=== PATIENT | female | born 1960 | race Caucasian/White ===

== ENCOUNTER 2023-05-02 15:37 | Inpatient (IN) ==
--- NOTE | 2023-05-02 15:47 | EKG ---
Test Reason : hypoxia Blood Pressure : */* mmHG Vent. Rate : 91 BPM Atrial Rate : 91 BPM P-R Int : 144 ms QRS Dur : 72 ms QT Int : 340 ms P-R-T Axes : 46 42 39 degrees QTc Int : 418 ms Normal sinus rhythm Normal ECG No previous ECGs available Confirmed by Raghavendra Martínez MD ([id number]) on 05/03/2023 7:36:49 AM Referred By: Confirmed By: Raghavendra Martínez MD
[2023-05-02] MEDS ORDERED: TYLENOL 500 MG TAB EXTRA STRENGTH PO ONE (15:59)
[2023-05-02 16:00] LABS: ABG BASE EXCESS 2.2 mmol/L (-2.0-2.0); ABG HCO3 24.7 mmol/L (22-26)
--- NOTE | 2023-05-02 16:00 | DR.SOBA ---
HPI Time Seen Time Seen by Provider: 05/02/23 15:57 Primary Care Physician Primary Care Physician: Tasha Moore Complaints Chief Complaint:: Patient states that since last Tuesday she has been having shortness of breath and a productive cough. She has been treated for a UTI during this time as well. Today she went to Tasha Moore's office and was told that she should present to the ER due to low oxygen saturation. COVID-19 Coronavirus risk:travel/contact w/high risk person: Yes Has patient experienced Coronavirus symptoms: Yes Coronavirus symptoms experienced: Fever, Coughing and Shortness of Breath Source History Provided: Patient Mode of Arrival Mode of Arrival: Wheelchair Timing Onset of Chief Complaint: 04/27/23 PMH PMH Past Medical History: Yes Past Medical History: COPD, Diabetes and Hypothyroidism Past Surgical History: Yes Surgical History: , Ortho Surgery and Other Past Surgical History Comment: Neck Family History History of Family Medical Conditions: Yes Family Medical History: Diabetes Mellitus, Cancer, Heart Failure and Hypertension Social History Does patient currently use any type of tobacco product: No Have you used tobacco products in the last 12 months: No Type of Tobacco Use: None Does any household member use tobacco: No Alcohol Use: None Do you use any recreational Drugs:: No Lives With: Family Lives Where: Home Travel Risk Coronavirus risk:travel/contact w/high risk person: Yes Has patient experienced Coronavirus symptoms: Yes Coronavirus symptoms experienced: Fever, Coughing and Shortness of Breath Infectious screening In the last 2 months have you had wt loss of >10#?: NO Have you had fever, night sweats or hemotysis?: No Have you traveled outside the country in the last 6 months?: No Isolation: Droplet PE Vital Signs Vitals: Vital Signs Temperature 99.6 F Temperature 101.2 F Pulse Rate 67 Pulse Rate 67 Pulse Rate 68 Pulse Rate 66 Pulse Rate 66 Pulse Rate 65 Pulse Rate 66 Pulse Rate 62 Pulse Rate 65 Pulse Rate 66 Pulse Rate 66 Pulse Rate 64 Pulse Rate 64 Pulse Rate 64 Pulse Rate 65 Pulse Rate 66 Pulse Rate 65 Pulse Rate 67 Pulse Rate 66 Pulse Rate 67 Pulse Rate 69 Pulse Rate 71 Pulse Rate 72 Pulse Rate 72 Pulse Rate 73 Pulse Rate 73 Pulse Rate 75 Pulse Rate 80 Pulse Rate 82 Pulse Rate 85 Pulse Rate 91 Respiratory Rate 22 Respiratory Rate 18 Respiratory Rate 18 Blood Pressure 101/51 Blood Pressure 105/53 Blood Pressure 100/52 Blood Pressure 101/52 Blood Pressure 100/54 Blood Pressure 88/51 Blood Pressure 88/51 Blood Pressure 84/41 Blood Pressure 84/41 Blood Pressure 84/41 Blood Pressure 95/50 Blood Pressure 95/50 Blood Pressure 90/47 Blood Pressure 87/43 Blood Pressure 83/43 Blood Pressure 91/50 Blood Pressure 91/46 Blood Pressure 91/46 Blood Pressure 91/46 Blood Pressure 93/52 Blood Pressure 87/43 Blood Pressure 93/49 Blood Pressure 89/42 Blood Pressure 97/51 Blood Pressure 97/51 Blood Pressure 91/50 Blood Pressure 97/50 Blood Pressure 97/50 Blood Pressure 97/50 Blood Pressure 92/53 O2 Sat by Pulse Oximetry 98 O2 Sat by Pulse Oximetry 97 O2 Sat by Pulse Oximetry 96 O2 Sat by Pulse Oximetry 96 O2 Sat by Pulse Oximetry 98 O2 Sat by Pulse Oximetry 96 O2 Sat by Pulse Oximetry 96 O2 Sat by Pulse Oximetry 98 O2 Sat by Pulse Oximetry 95 O2 Sat by Pulse Oximetry 96 O2 Sat by Pulse Oximetry 95 O2 Sat by Pulse Oximetry 95 O2 Sat by Pulse Oximetry 96 O2 Sat by Pulse Oximetry 93 O2 Sat by Pulse Oximetry 94 O2 Sat by Pulse Oximetry 93 O2 Sat by Pulse Oximetry 95 O2 Sat by Pulse Oximetry 95 O2 Sat by Pulse Oximetry 93 O2 Sat by Pulse Oximetry 93 O2 Sat by Pulse Oximetry 93 O2 Sat by Pulse Oximetry 92 O2 Sat by Pulse Oximetry 88 O2 Sat by Pulse Oximetry 93 O2 Sat by Pulse Oximetry 93 O2 Sat by Pulse Oximetry 93 O2 Sat by Pulse Oximetry 91 O2 Sat by Pulse Oximetry 92 O2 Sat by Pulse Oximetry 93 O2 Sat by Pulse Oximetry 95 O2 Sat by Pulse Oximetry 83 ROR Labs Reviewed 05/02/23 16:05 05/02/23 16:14 Laboratory: WBC 12.5 X10^3/uL (3.6-10.0) H 05/02/23 16:05 RBC 3.20 X10^6/uL (3.5-5.4) L 05/02/23 16:05 Hgb 9.7 g/dL (12.0-16.0) L 05/02/23 16:05 Hct 29.8 % (36.0-47.0) L 05/02/23 16:05 MCV 93.2 fL (80.0-100.0) 05/02/23 16:05 MCH 30.4 pg (27.0-34.0) 05/02/23 16:05 MCHC 32.6 g/dL (33.0-35.0) L 05/02/23 16:05 RDW 18.6 % (11.6-16.5) H 05/02/23 16:05 Plt Count 305 X10^3/uL (150.0-450.0) 05/02/23 16:05 Plt Count Comment Adequate (ADEQUATE) 05/02/23 16:05 MPV 7.8 fL (7.4-11.0) 05/02/23 16:05 Neut % (Auto) 93.5 % (42.0-75.0) H 05/02/23 16:05 Lymph % (Auto) 5.3 % (21.0-51.0) L 05/02/23 16:05 [place] % (Auto) 1.2 % (0.0-13.0) 05/02/23 16:05 Eos % (Auto) 0.0 % (0.9-2.9) L 05/02/23 16:05 Baso % (Auto) 0 % (0.2-1.0) L 05/02/23 16:05 Neut # (Auto) 11.7 x10^3/uL (2.2-4.8) H 05/02/23 16:05 Lymph # (Auto) 0.7 X10^3/uL (1.3-2.9) L 05/02/23 16:05 [place] # (Auto) 0.1 x10^3/uL (0.3-0.8) L 05/02/23 16:05 Eos # (Auto) 0.0 x10^3/uL (0.0-0.2) 05/02/23 16:05 Baso # (Auto) 0.0 X10^3/uL (0.0-0.1) 05/02/23 16:05 Absolute Nucleated RBC 0.0 /100WBC 05/02/23 16:05 Total Counted 100 05/02/23 16:05 Neutrophils % (Manual) 91 % (39-76) H 05/02/23 16:05 Lymphocytes % (Manual) 8 % (13-43) L 05/02/23 16:05 Monocytes % (Manual) 1 % (4-9) L 05/02/23 16:05 Plt Morphology Comment Normal (NORMAL) 05/02/23 16:05 RBC Morphology Abnormal (NORMAL) A 05/02/23 16:05 Anisocytosis Slight A 05/02/23 16:05 D-Dimer 1.79 ug/ml (0.0-0.57) H 05/02/23 16:05 Sample Site Rra 05/02/23 15:55 ABG pH 7.510 (7.35-7.45) H 05/02/23 15:55 ABG pCO2 31.0 mmHg (35.0-45.0) L 05/02/23 15:55 ABG pO2 54.0 mmHg (80.0-100.0) L 05/02/23 15:55 ABG HCO3 24.7 mmol/L (22-26) 05/02/23 15:55 ABG O2 Saturation 91.0 % (90-100) 05/02/23 15:55 ABG Base Excess 2.2 mmol/L (-2.0-2.0) H 05/02/23 15:55 Jaime Test Pos 05/02/23 15:55 A-a Gradient 57.0 mmHg 05/02/23 15:55 FiO2 21.0 05/02/23 15:55 Blood Gas Comments Pt margot well eb 05/02/23 15:55 Sodium 131 mmol/L (136-145) L 05/02/23 16:14 Corrected Sodium 133 mmol/L (136-145) L 05/02/23 16:14 Potassium 4.6 mmol/L (3.5-5.1) 05/02/23 16:14 Chloride 98 mmol/L (98-107) 05/02/23 16:14 Carbon Dioxide 25.2 mmol/L (21-32) 05/02/23 16:14 BUN 17 mg/dL (7-18) 05/02/23 16:14 Creatinine 1.14 mg/dL (0.55-1.02) H 05/02/23 16:14 Est GFR (MDRD) Af Amer > 60 (>60) 05/02/23 16:14 Est GFR (MDRD) Non-Af 51 (>60) L 05/02/23 16:14 Glucose 174 mg/dL (65-99) H 05/02/23 16:14 Lactic Acid 0.5 mmol/L (0.4-2.0) 05/02/23 16:05 Calcium 8.8 mg/dL (8.5-10.1) 05/02/23 16:14 Corrected Calcium 9.8 mg/dL (8.5-10.1) 05/02/23 16:14 Total Bilirubin 0.90 mg/dL (0.2-1.0) 05/02/23 16:14 AST 28 Units/L (15-37) 05/02/23 16:14 ALT 37 Units/L (12-78) 05/02/23 16:14 Alkaline Phosphatase 87 Units/L (46-116) 05/02/23 16:14 B-Natriuretic Peptide 238 pg/mL (0-79) H 05/02/23 16:05 Total Protein 6.9 g/dL (6.4-8.2) 05/02/23 16:14 Albumin 2.7 g/dL (3.4-5.0) L 05/02/23 16:14 Globulin 4.2 g/dL (2.5-4.5) 05/02/23 16:14 Albumin/Globulin Ratio 0.6 Ratio (1.1-2.1) L 05/02/23 16:14 Specimen Type Clean catch urine 05/02/23 17:51 Urine Color [place] (YELLOW) 05/02/23 17:51 Urine Appearance Cloudy (CLEAR) 05/02/23 17:51 Urine pH Cancelled 05/02/23 17:51 Ur Specific [place] Cancelled 05/02/23 17:51 Urine Protein Cancelled 05/02/23 17:51 Urine Glucose (UA) Cancelled 05/02/23 17:51 Urine Ketones Cancelled 05/02/23 17:51 Urine Blood Cancelled 05/02/23 17:51 Urine Nitrite Cancelled 05/02/23 17:51 Urine Bilirubin Cancelled 05/02/23 17:51 Urine Urobilinogen Cancelled 05/02/23 17:51 Ur Leukocyte Esterase Cancelled 05/02/23 17:51 Urine RBC None seen /HPF (0-3) 05/02/23 17:51 Urine WBC Tntc /HPF (0-5) A 05/02/23 17:51 Ur Squamous Epith Cells Few /HPF (NEGATIVE) 05/02/23 17:51 Urine Bacteria 4+ /HPF (NEGATIVE) 05/02/23 17:51 Granular Casts Rare /LPF (NEGATIVE) 05/02/23 17:51 Ur Culture Indicated? Yes/culture set up 05/02/23 17:51 SARS-CoV-2 (PCR) Negative (NEGATIVE) 05/02/23 15:48 Influenza Type A (PCR) Negative (NEGATIVE) 05/02/23 15:48 Influenza Type B (PCR) Negative (NEGATIVE) 05/02/23 15:48 RSV (PCR) Negative (NEGATIVE) 05/02/23 15:48 Opioid Opioid Risk Tool Age (Darnell box if 16-45): No History of Preadolescent Sexual Abuse: No Total: 0 Total Score Risk Category: Low Risk Copyright: Gordon SORIANO predicting aberrant behaviors Discharge Plan Discharge Plan Patient Disposition: 01 HOME, SELF-CARE Condition: Stable Orders to Discharge Patient Discharge Orders: Transfer (Routine); Ordered 05/02/23 Ordered By: JOCELYNN IRELAND
[2023-05-02 16:01] LABS: ABG ALLEN TEST POS
[2023-05-02] MEDS: TYLENOL 500 MG TAB EXTRA STRENGTH PO ONE (16:10)
[2023-05-02] MEDS ORDERED: NS 1,000 ML IV 1,000 ML ONE ×3 (16:15→20:01)
[2023-05-02] MEDS: NS 1,000 ML IV 1,000 ML IV ONE ×2 (16:18→17:39)
[2023-05-02 16:31] LABS: BASOPHILS % (AUTO) 0 % (0.2-1.0); HEMATOCRIT 29.8 % (36.0-47.0); HEMOGLOBIN 9.7 g/dL (12.0-16.0); LYMPHOCYTES # (AUTO) 0.7 X10^3/uL (1.3-2.9); LYMPHOCYTES % (AUTO) 5.3 % (21.0-51.0); MEAN CORPUSCULAR HEMOGLOBIN 30.4 pg (27.0-34.0); MEAN CORPUSCULAR HGB CONC 32.6 g/dL (33.0-35.0); MEAN CORPUSCULAR VOLUME 93.2 fL (80.0-100.0); MEAN PLATELET VOLUME 7.8 fL (7.4-11.0); MONOCYTES # (AUTO) 0.1 x10^3/uL (0.3-0.8); MONOCYTES % (AUTO) 1.2 % (0.0-13.0); NEUTROPHILS # (AUTO) 11.7 x10^3/uL (2.2-4.8); NEUTROPHILS % (AUTO) 93.5 % (42.0-75.0); PLATELET COUNT 305 X10^3/uL (150.0-450.0); RED CELL DISTRIBUTION WIDTH 18.6 % (11.6-16.5); WHITE BLOOD COUNT 12.5 X10^3/uL (3.6-10.0)
[2023-05-02 16:46] LABS: ALANINE AMINOTRANSFERASE 37 Units/L (12-78); ALBUMIN 2.7 g/dL (3.4-5.0); ALKALINE PHOSPHATASE 87 Units/L (46-116); ASPARTATE AMINO TRANSFERASE 28 Units/L (15-37); BLOOD UREA NITROGEN 17 mg/dL (7-18); CALCIUM 8.8 mg/dL (8.5-10.1); CARBON DIOXIDE 25.2 mmol/L (21-32); CHLORIDE 98 mmol/L (98-107); COR CA(FOR HYPOALB) 9.8 mg/dL (8.5-10.1); COR NA(FOR HYPERGLY) 133 mmol/L (136-145); CREATININE 1.14 mg/dL (0.55-1.02); GLUCOSE 174 mg/dL (65-99); POTASSIUM 4.6 mmol/L (3.5-5.1); SODIUM 131 mmol/L (136-145); TOTAL PROTEIN 6.9 g/dL (6.4-8.2); eGFR NON BLACK RACES 51 (>60)
--- NOTE | 2023-05-02 17:00 | RAD ---
EXAM:CHEST, 1 VIEWHISTORY:SOB; UnavailableCOMPARISON:November 2021FINDINGS:The trachea is midline. The cardiac silhouette is mildly enlarged.. The lungs demonstrate chronic appearing interstitial changes without focal infiltrate or effusion. The bony thorax is unremarkable.IMPRESSION:No acute cardiopulmonary disease.THIS IS AN ELECTRONICALLY VERIFIED FINAL REPORT05/02/2023 4:57 PM - Electronically signed by Sinan Basurto MD
[2023-05-02 17:07] LABS: ANISOCYTOSIS SLIGHT; PLATELET MORPHOLOGY COMMENT NORMAL (NORMAL)
[2023-05-02] MEDS: OMNIPAQUE 350 mg/mL 100 mL BTL 100 ML ONE (17:40)
[2023-05-02 18:21] LABS: APPEARANCE,URINE CLOUDY (CLEAR); BACTERIA,URINE 4+ /HPF (NEGATIVE); COLOR,URINE ORANGE (YELLOW); GRANULAR CASTS,URINE RARE /LPF (NEGATIVE); RBC,URINE NONE SEEN /HPF (0-3); SQUAMOUS EPITHELIAL CELL,UR FEW /HPF (NEGATIVE)
--- NOTE | 2023-05-02 18:28 | CT ---
PROCEDURE: CTA Chest. HISTORY: Dyspnea. TECHNIQUE: Axial images were performed through the chest with the administration of IV contrast with multiplanar reformations . 3D and MIPS reconstructions were performed and reviewed. Dose reduction te chniques including Automated Exposure Control (AEC) and adjustment of mA and kV were utilized . COMPARISON: None. TECHNICAL QUALITY: Satisfactory. FINDINGS: Mild athero sclerotic calcifications thoracic aorta with no aneurysm or dissection. No evidence of pulmonary embolus. Mediastinum and hilar regions show prominent right hilar and paratracheal lymph nodes with largest in the paratracheal region at 2.1 cm. Normal-sized heart with no pericardial fluid. No pulmonary consolidation, masses, or pleural fluid. Mild linear scar versus discoid atelectasis manny ng bases. Visualized upper abdomen shows previous cholecystectomy. No acute bony abnormality. IMPRESSION: 1. No pulmonary embolus or aortic dissection. 2. Mild paratracheal and right hilar lymphadenopathy and follow-up study in 3-4 months recommended to evaluate stability. 3. No pulmonary consolidation. THIS IS AN ELECTRONICALLY VERIFIED FINAL REPORT 05/02/2023 6:25 PM - Electronically signed by Jc Mondragon MD
[2023-05-02] MEDS ORDERED: NS 100 ML IV 100 ML ONE (19:14)
[2023-05-02] MEDS ORDERED: ROCEPHIN VIAL 1 GRAM ONE (19:14)
[2023-05-02] MEDS: ROCEPHIN VIAL 1 GRAM 1 G in NS 100 ML IV 100 ML IV ONE (19:20)
[2023-05-02] MEDS: NS 1,000 ML IV 1,000 ML IV SCH (20:16)
[2023-05-02] MEDS ORDERED: PULMICORT NEB TX 0.5 MG NEB ONE (21:38)
[2023-05-02] MEDS: DUONEB 0.5 MG/3 MG (3 mL) NEB SCH (21:53)
[2023-05-02] MEDS: PULMICORT NEB TX 0.5 MG NEB SCH (21:53)
[2023-05-02 22:57] VITALS: BMI 29.8
[2023-05-02] MEDS: ROCEPHIN VIAL 1 GRAM 1 G in NS 100 ML IV 100 ML IV SCH (23:11)
[2023-05-02] MEDS: ZOFRAN INJ 4 MG VIAL IVP PRN (23:17)
[2023-05-02] MEDS ORDERED: DUONEB 0.5 MG/3 MG (3 mL) NEB ONE (23:49)
[2023-05-03] MEDS: SOLU-Medrol 40 MG VIAL IVP SCH ×2 (01:17→21:37)
[2023-05-03] MEDS: SOLU-Medrol 125 MG VIAL ONE (01:26)
[2023-05-03 04:27] LABS: HEMOGLOBIN 8.2 g/dL (12.0-16.0); LYMPHOCYTES # (AUTO) 0.2 X10^3/uL (1.3-2.9); MONOCYTES # (AUTO) 0.1 x10^3/uL (0.3-0.8); RED CELL DISTRIBUTION WIDTH 19.2 % (11.6-16.5); WHITE BLOOD COUNT 8.2 X10^3/uL (3.6-10.0)
[2023-05-03 04:33] LABS: BASOPHILS % (AUTO) 0.1 % (0.2-1.0); HEMATOCRIT 25.3 % (36.0-47.0); LYMPHOCYTES % (AUTO) 2.6 % (21.0-51.0); MEAN CORPUSCULAR HEMOGLOBIN 30.2 pg (27.0-34.0); MEAN CORPUSCULAR HGB CONC 32.3 g/dL (33.0-35.0); MEAN CORPUSCULAR VOLUME 93.7 fL (80.0-100.0); MONOCYTES % (AUTO) 0.8 % (0.0-13.0); NEUTROPHILS # (AUTO) 7.9 x10^3/uL (2.2-4.8); NEUTROPHILS % (AUTO) 96.5 % (42.0-75.0); PLATELET COUNT 271 X10^3/uL (150.0-450.0)
[2023-05-03 04:40] LABS: ALANINE AMINOTRANSFERASE 35 Units/L (12-78); ALBUMIN 2.3 g/dL (3.4-5.0); ALKALINE PHOSPHATASE 78 Units/L (46-116); ASPARTATE AMINO TRANSFERASE 35 Units/L (15-37); BLOOD UREA NITROGEN 13 mg/dL (7-18); CALCIUM 7.9 mg/dL (8.5-10.1); CHLORIDE 102 mmol/L (98-107); COR CA(FOR HYPOALB) 9.3 mg/dL (8.5-10.1); COR NA(FOR HYPERGLY) 139 mmol/L (136-145); CREATINE KINASE 775 Units/L (26-192); GLUCOSE 255 mg/dL (65-99); MAGNESIUM 1.6 mg/dL (2.0-2.9); SODIUM 135 mmol/L (136-145); TOTAL PROTEIN 6.3 g/dL (6.4-8.2); eGFR NON BLACK RACES > 60 (>60)
[2023-05-03 04:45] LABS: ANISOCYTOSIS SLIGHT; PLATELET MORPHOLOGY COMMENT NORMAL (NORMAL)
[2023-05-03] MEDS ORDERED: CONSULT PHARMACY - POTASSIUM & MAGNESIUM XX SCH (06:00)
[2023-05-03] MEDS: MAG-OX TAB PO SCH (09:00)
[2023-05-03] MEDS ORDERED: SOLU-Medrol 40 MG VIAL IVP SCH (09:00)
[2023-05-03] MEDS: VSL#3 PROBIOTIC CAP 112.5 B PO SCH (10:00)
[2023-05-03] MEDS: CYMBALTA PO SCH (12:00)
[2023-05-03] MEDS: NovoLIN R (or HumuLIN R) SC PRN (14:30)
[2023-05-03] MEDS: SYNTHROID 125 mcg TAB PO SCH (15:15)
[2023-05-04] MEDS: NORCO 7.5/325 MG TAB PO PRN (01:22)
[2023-05-04 05:00] LABS: BASOPHILS % (AUTO) 0.1 % (0.2-1.0); HEMATOCRIT 24.8 % (36.0-47.0); LYMPHOCYTES # (AUTO) 0.2 X10^3/uL (1.3-2.9); LYMPHOCYTES % (AUTO) 2.9 % (21.0-51.0); MEAN CORPUSCULAR HEMOGLOBIN 30.6 pg (27.0-34.0); MEAN CORPUSCULAR HGB CONC 32.5 g/dL (33.0-35.0); MEAN CORPUSCULAR VOLUME 94.3 fL (80.0-100.0); MEAN PLATELET VOLUME 8.4 fL (7.4-11.0); MONOCYTES # (AUTO) 0.1 x10^3/uL (0.3-0.8); MONOCYTES % (AUTO) 1.5 % (0.0-13.0); NEUTROPHILS # (AUTO) 7.1 x10^3/uL (2.2-4.8); NEUTROPHILS % (AUTO) 95.5 % (42.0-75.0); PLATELET COUNT 262 X10^3/uL (150.0-450.0); RED BLOOD COUNT 2.63 X10^6/uL (3.5-5.4); RED CELL DISTRIBUTION WIDTH 18.9 % (11.6-16.5); WHITE BLOOD COUNT 7.5 X10^3/uL (3.6-10.0)
[2023-05-04 05:14] LABS: ALANINE AMINOTRANSFERASE 35 Units/L (12-78); ALBUMIN 2.3 g/dL (3.4-5.0); ALKALINE PHOSPHATASE 85 Units/L (46-116); ASPARTATE AMINO TRANSFERASE 30 Units/L (15-37); BLOOD UREA NITROGEN 18 mg/dL (7-18); CALCIUM 8.1 mg/dL (8.5-10.1); CHLORIDE 107 mmol/L (98-107); COR CA(FOR HYPOALB) 9.5 mg/dL (8.5-10.1); COR NA(FOR HYPERGLY) 147 mmol/L (136-145); CREATININE 0.87 mg/dL (0.55-1.02); GLUCOSE 464 mg/dL (65-99); MAGNESIUM 1.9 mg/dL (2.0-2.9); POTASSIUM 3.8 mmol/L (3.5-5.1); SODIUM 138 mmol/L (136-145); TOTAL PROTEIN 6.4 g/dL (6.4-8.2); eGFR NON BLACK RACES > 60 (>60)
--- NOTE | 2023-05-04 05:38 | RAD ---
EXAM:CHEST, 1 VIEWHISTORY:SOB, COPD EXACERBATION; COPD, DM SX: CSECTION, ORTHO, NECKCOMPARISON:05/02/2023FINDINGS:The cardiomediastinal silhouette is stable.Increasing interstitial markings in bilateral opacities. No pneumothorax or effusion.No acute osseous abnormality.IMPRESSION:Increasing opacities in the lungs which may be due to edema or pneumonia. Continued follow-up recommended.THIS IS AN ELECTRONICALLY VERIFIED FINAL REPORT05/04/2023 5:35 AM - Electronically signed by Josesito Lucero MD
[2023-05-04 05:42] LABS: ANISOCYTOSIS SLIGHT; PLATELET MORPHOLOGY COMMENT NORMAL (NORMAL)
[2023-05-04] MEDS ORDERED: CONSULT PHARMACY - POTASSIUM & MAGNESIUM XX SCH (06:00)
[2023-05-04] MEDS ORDERED: GLUCOPHAGE ONE ×2 (08:10→20:12)
[2023-05-04] MEDS: K-DUR TAB 20 MEQ PO SCH (08:41)
[2023-05-04] MEDS: MAG-OX TAB PO SCH (08:41)
[2023-05-04] MEDS: GLUCOPHAGE PO SCH (08:41)
[2023-05-04] MEDS ORDERED: GLUCOPHAGE PO SCH (09:00)
[2023-05-04] MEDS: LASIX IVP SCH (09:50)
[2023-05-04] MEDS: REQUIP PO SCH (09:51)
[2023-05-04 10:31] LABS: ABG BASE EXCESS -3.1 mmol/L (-2.0-2.0); ABG HCO3 21.1 mmol/L (22-26)
[2023-05-04 10:32] LABS: ABG ALLEN TEST POS
--- NOTE | 2023-05-04 10:47 | RAD ---
EXAM:CHEST, PA/LAT ADULTHISTORY:PNEUMONIA;COMPARISON:Prior study or studies were utilized for comparison during interpretation with the most relevant dated earlier todayTECHNIQUE:CHEST, PA/LAT ADULTFINDINGS:Chest:Lines and tubes: Cardiac leads overlie the chest.Mediastinum: Cardiac and mediastinal shadow is within normal limits for size and contour.Pulmonary vessels: No pulmonary vascular congestion.Lung gamez: Similar diffuse airspace opacities compared to earlier todayPleura: No effusion. No pneumothorax.Bones and soft tissues: No acute osseous or soft tissue abnormality.IMPRESSION:1. Pneumonia versus heart failure without significant change from earlier todayTHIS IS AN ELECTRONICALLY VERIFIED FINAL REPORT05/04/2023 10:44 AM - Electronically signed by Dk Pepper MD
[2023-05-04] MEDS: DIFLUCAN PO SCH (14:07)
--- NOTE | 2023-05-04 15:49 | DR.H&P ---
H&P History & Physical for Day of: H&P Date: 05/02/23 Chief Complaint Chief Complaint: SOB Allergies Allergies Allergy/AdvReac Type Severity Reaction Status Date / Time tetracycline Allergy Unknown Verified 04/06/21 15:35 History of Present Illness History of Present Illness: Pt is 63 WF, Er admission after presenting stating that since last Tuesday she has been having shortness of breath and a productive cough. She has been treated for a UTI during this time as well. Pt states she had rocephin IM and has been on po cipro 500mg bid. Today she went to Tasha Moore's office and was told that she should present to the ER due to low oxygen saturation. 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 and Tonsillectomy Family History Family Medical History: Diabetes Mellitus, Cancer, Heart Failure and Hyperten cecilia Social History Does patient currently use any type of tobacco product: No Have you used tobacco products in the last 12 months: No Type of Tobacco Use: None Does any household member use tobacco: No Alcohol Use: None Drug Use: None Medications Home Medications: Home Medications Medication Instructions Recorded Confirmed Type ciprofloxacin HCl 500 mg tablet 500 mg PO BID 05/02/23 05/02/23 History duloxetine 30 mg capsule,delayed 30 mg PO QDAY 05/02/23 05/02/23 History release glimepiride 4 mg tablet 4 mg PO BID 05/02/23 05/02/23 History hydrocodone 7.5 mg-acetaminophen 1 tab PO TID PRN 05/02/23 05/02/23 History 325 mg tablet levothyroxine 125 mcg tablet 125 mcg PO QDAY disorder of 05/02/23 05/02/23 History thyroid gland metformin 500 mg tablet 500 mg PO DAILY 05/02/23 05/02/23 History phenazopyridine 100 mg tablet 100 mg PO TID PRN 05/02/23 05/02/23 History Labs 05/04/23 04:10 05/04/23 04:10 Labs: 05/02/23 17:51 Urine,Clean Catch Urine Culture - Preliminary 05/02/23 16:14 Blood Blood Culture Gram Stain - Final Laboratory WBC 8.2 X10^3/uL (3.6-10.0) 05/03/23 03:50 RBC 2.70 X10^6/uL (3.5-5.4) L 05/03/23 03:50 Hgb 8.2 g/dL (12.0-16.0) L 05/03/23 03:50 Hct 25.3 % (36.0-47.0) L 05/03/23 03:50 MCV 93.7 fL (80.0-100.0) 05/03/23 03:50 MCH 30.2 pg (27.0-34.0) 05/03/23 03:50 MCHC 32.3 g/dL (33.0-35.0) L 05/03/23 03:50 RDW 19.2 % (11.6-16.5) H 05/03/23 03:50 Plt Count 271 X10^3/uL (150.0-450.0) 05/03/23 03:50 Plt Count Comment Adequate (ADEQUATE) 05/03/23 03:50 MPV 8.0 fL (7.4-11.0) 05/03/23 03:50 Neut % (Auto) 96.5 % (42.0-75.0) H 05/03/23 03:50 Lymph % (Auto) 2.6 % (21.0-51.0) L 05/03/23 03:50 [place] % (Auto) 0.8 % (0.0-13.0) 05/03/23 03:50 Eos % (Auto) 0.0 % (0.9-2.9) L 05/03/23 03:50 Baso % (Auto) 0.1 % (0.2-1.0) L 05/03/23 03:50 Neut # (Auto) 7.9 x10^3/uL (2.2-4.8) H 05/03/23 03:50 Lymph # (Auto) 0.2 X10^3/uL (1.3-2.9) L 05/03/23 03:50 [place] # (Auto) 0.1 x10^3/uL (0.3-0.8) L 05/03/23 03:50 Eos # (Auto) 0.0 x10^3/uL (0.0-0.2) 05/03/23 03:50 Baso # (Auto) 0.0 X10^3/uL (0.0-0.1) 05/03/23 03:50 Absolute Nucleated RBC 0.0 /100WBC 05/03/23 03:50 Total Counted 100 05/03/23 03:50 Neutrophils % (Manual) 97 % (39-76) H 05/03/23 03:50 Lymphocytes % (Manual) 3 % (13-43) L 05/03/23 03:50 Monocytes % (Manual) 1 % (4-9) L 05/02/23 16:05 Plt Morphology Comment Normal (NORMAL) 05/03/23 03:50 RBC Morphology Abnormal (NORMAL) A 05/03/23 03:50 Anisocytosis Slight A 05/03/23 03:50 PT 14.0 SECONDS (11.8-14.3) 05/03/23 03:50 INR Target Range - 05/03/23 03:50 INR 1.10 (0.8-1.3) 05/03/23 03:50 APTT 36.2 SECONDS (22.9-36.5) 05/03/23 03:50 PTT Comment - 05/03/23 03:50 D-Dimer 1.79 ug/ml (0.0-0.57) H 05/02/23 16:05 Sample Site Rra 05/02/23 15:55 ABG pH 7.510 (7.35-7.45) H 05/02/23 15:55 ABG pCO2 31.0 mmHg (35.0-45.0) L 05/02/23 15:55 ABG pO2 54.0 mmHg (80.0-100.0) L 05/02/23 15:55 ABG HCO3 24.7 mmol/L (22-26) 05/02/23 15:55 ABG O2 Saturation 91.0 % (90-100) 05/02/23 15:55 ABG Base Excess 2.2 mmol/L (-2.0-2.0) H 05/02/23 15:55 Jaime Test Pos 05/02/23 15:55 A-a Gradient 57.0 mmHg 05/02/23 15:55 FiO2 21.0 05/02/23 15:55 Blood Gas Comments Pt margot well eb 05/02/23 15:55 Sodium 135 mmol/L (136-145) L 05/03/23 03:50 Corrected Sodium 139 mmol/L (136-145) 05/03/23 03:50 Potassium 4.0 mmol/L (3.5-5.1) 05/03/23 03:50 Chloride 102 mmol/L (98-107) 05/03/23 03:50 Carbon Dioxide 22.0 mmol/L (21-32) 05/03/23 03:50 BUN 13 mg/dL (7-18) 05/03/23 03:50 Creatinine 0.90 mg/dL (0.55-1.02) 05/03/23 03:50 Est GFR (MDRD) Af Amer > 60 (>60) 05/03/23 03:50 Est GFR (MDRD) Non-Af > 60 (>60) 05/03/23 03:50 Glucose 255 mg/dL (65-99) H 05/03/23 03:50 POC Glucose (mg/dL) 386 mg/dL (65-99) H 05/03/23 17:12 Lactic Acid 0.5 mmol/L (0.4-2.0) 05/02/23 16:05 Calcium 7.9 mg/dL (8.5-10.1) L 05/03/23 03:50 Corrected Calcium 9.3 mg/dL (8.5-10.1) 05/03/23 03:50 Magnesium 1.6 mg/dL (2.0-2.9) L 05/03/23 03:50 Total Bilirubin 0.50 mg/dL (0.2-1.0) 05/03/23 03:50 AST 35 Units/L (15-37) 05/03/23 03:50 ALT 35 Units/L (12-78) 05/03/23 03:50 Alkaline Phosphatase 78 Units/L (46-116) 05/03/23 03:50 Creatine Kinase 789 Units/L (26-192) H 05/03/23 09:36 B-Natriuretic Peptide 238 pg/mL (0-79) H 05/02/23 16:05 Total Protein 6.3 g/dL (6.4-8.2) L 05/03/23 03:50 Albumin 2.3 g/dL (3.4-5.0) L 05/03/23 03:50 Globulin 4.0 g/dL (2.5-4.5) 05/03/23 03:50 Albumin/Globulin Ratio 0.6 Ratio (1.1-2.1) L 05/03/23 03:50 Specimen Type Clean catch urine 05/02/23 17:51 Urine Color [place] (YELLOW) 05/02/23 17:51 Urine Appearance Cloudy (CLEAR) 05/02/23 17:51 Urine pH Cancelled 05/02/23 17:51 Ur Specific [place] Cancelled 05/02/23 17:51 Urine Protein Cancelled 05/02/23 17:51 Urine Glucose (UA) Cancelled 05/02/23 17:51 Urine Ketones Cancelled 05/02/23 17:51 Urine Blood Cancelled 05/02/23 17:51 Urine Nitrite Cancelled 05/02/23 17:51 Urine Bilirubin Cancelled 05/02/23 17:51 Urine Urobilinogen Cancelled 05/02/23 17:51 Ur Leukocyte Esterase Cancelled 05/02/23 17:51 Urine RBC None seen /HPF (0-3) 05/02/23 17:51 Urine WBC Tntc /HPF (0-5) A 05/02/23 17:51 Ur Squamous Epith Cells Few /HPF (NEGATIVE) 05/02/23 17:51 Urine Bacteria 4+ /HPF (NEGATIVE) 05/02/23 17:51 Granular Casts Rare /LPF (NEGATIVE) 05/02/23 17:51 Ur Culture Indicated? Yes/culture set up 05/02/23 17:51 SARS-CoV-2 (PCR) Negative (NEGATIVE) 05/02/23 15:48 Influenza Type A (PCR) Negative (NEGATIVE) 05/02/23 15:48 Influenza Type B (PCR) Negative (NEGATIVE) 05/02/23 15:48 RSV (PCR) Negative (NEGATIVE) 05/02/23 15:48 Review of Systems Constitutional: Fever, Chills and Malaise Eyes: No Symptoms Reported ENT: Nose Congestion Respiratory: Shortness of Breath Cardiovascular: No Symptoms Reported Gastrointestinal: Nausea Genitourinary: Dysuria Musculoskeletal: Back Pain Skin: No Symptoms Reported Neurological: No Symptoms Reported Physical Exam Vital Signs: Vital Signs Temperature 97.7 F Temperature 98.2 F Temperature 98.2 F Pulse Rate 71 Pulse Rate 82 Pulse Rate 70 Pulse Rate 88 Pulse Rate 71 Pulse Rate 71 Pulse Rate 78 Respiratory Rate 23 Respiratory Rate 22 Respiratory Rate 22 Respiratory Rate 22 Respiratory Rate 22 Respiratory Rate 16 Respiratory Rate 26 Blood Pressure 123/58 Blood Pressure 123/58 Blood Pressure 113/54 Blood Pressure 97/53 Blood Pressure 97/60 Blood Pressure 105/51 Blood Pressure 99/49 O2 Sat by Pulse Oximetry 98 O2 Sat by Pulse Oximetry 97 O2 Sat by Pulse Oximetry 95 O2 Sat by Pulse Oximetry 96 O2 Sat by Pulse Oximetry 96 O2 Sat by Pulse Oximetry 97 O2 Sat by Pulse Oximetry 93 Oriented: Normal Eyes: Normal Ear: Normal Nose: Normal Throat: Dry Respiratory: Diminished Throughout Cardiovascular: Normal : Normal Auscultation: Bowel Sounds: Normal Palpation: Normal Tenderness: Normal Skin: Normal Musculoskeletal: Back:Lumbar Psychiatric: Normal Affect: Normal Speech Pattern: Clear and Appropriate Assessment/Plan (1) Bronchitis: Narrative Support Text: ADMIT, ICU, SUPPLEMENTAL O2 CTA LUNGS OBTAINED IN THE ER HOME MEDICATION VERIFIED BP AND BS CONTROL Status: None (2) Hypoxia: Status: Acute (3) Urinary tract bacterial infections: Status: Acute (4) Diabetes 1.5, managed as type 2: Status: Acute
--- NOTE | 2023-05-04 17:19 | PCM.PROG ---
Progress Note Progress Note for Day of Date of Exam: 05/04/23 Subjective Subjective: Pt is 63 WF, Er admission after presenting stating that since last Tuesday she has been having shortness of breath and a productive cough. Upon arrival, patient had labs that revealed wbc of 12.5, hgb 9.7, Na 131, creatinine 1.14/BUN 17, BNP 238, CK 700, and Ddimer 1.79 on admission. She was febrile. Chest xray was negative for acute cardiopulmonary disease. She had a CTA chest that ruled out PE or aortic dissection. Patient was dyspneic with o2 SAT around 85% on room air. She recovered well on oxygen. Blood pressure was hypotensive. BP improved today to 147/65. Urine and blood cultures were obtained and patient was started on IV atbx and IV fluids while in ER. She was admitted f or treatment. Since admission, she has been treated with po steroids with blood sugar elevation. She is on sliding scale coverage. Morning labs showed wbc 7.5, hgb 8.0, BUN 18/0.87. ABG had a p02 of 48 and 02 sat of 83%. She had a chest xray this morning that showed increasing opacities from edema vs pneumonia. Repeat chest xray this morning showed pneumonia vs heart failure. Patient vitals are stable, she is afebrile. She is on supplemental oxygen at 3L. Past Medical Family Social History Allergies: Allergies tetracycline Allergy (Unknown, Verified 04/06/21 15:35) Reason: Drug allergy Vital Signs and I&O's Vital Signs: Vital Signs Temperature 97.9 F Temperature 98.0 F Pulse Rate 86 Pulse Rate 80 Pulse Rate 74 Pulse Rate 78 Pulse Rate 84 Pulse Rate 77 Pulse Rate 71 Pulse Rate 77 Pulse Rate 71 Respiratory Rate 37 Respiratory Rate 19 Respiratory Rate 19 Respiratory Rate 22 Respiratory Rate 33 Respiratory Rate 20 Respiratory Rate 20 Respiratory Rate 20 Blood Pressure 147/65 Blood Pressure 122/58 Blood Pressure 122/58 Blood Pressure 144/63 Blood Pressure 137/64 Blood Pressure 130/62 Blood Pressure 137/59 Blood Pressure 130/62 O2 Sat by Pulse Oximetry 92 O2 Sat by Pulse Oximetry 96 O2 Sat by Pulse Oximetry 94 O2 Sat by Pulse Oximetry 95 O2 Sat by Pulse Oximetry 94 O2 Sat by Pulse Oximetry 95 O2 Sat by Pulse Oximetry 92 O2 Sat by Pulse Oximetry 96 O2 Sat by Pulse Oximetry 92 Intake and Output: Intake & Output 05/02/23 05/03/23 05/04/23 05/05/23 11:59 11:59 11:59 11:59 Intake Total 1065 / 1065 2650 / 2650 1795 / 1795 Balance 1065 / 1065 2650 / 2650 1795 / 1795 Physical Exam Oriented: Normal Eyes: Normal Ear: Normal Nose: Normal Throat: Dry Respiratory: Diminished Cardiovascular: Normal : Normal Auscultation: Bowel Sounds: Normal Tenderness: Normal Skin: Normal Musculoskeletal: Back:Lumbar Psychiatric: Normal Mood Description: Calm Affect: Normal Speech Pattern: Clear and Appropriate Laboratory and Diagnostics 05/04/23 04:10 05/04/23 04:10 Labs: 05/02/23 16:05 Blood Blood Culture Gram Stain - Final 05/02/23 16:05 Blood Blood Culture - Preliminary 05/02/23 16:14 Blood Blood Culture Gram Stain - Final 05/02/23 16:14 Blood Blood Culture - Preliminary 05/02/23 17:51 Urine,Clean Catch Urine Culture - Preliminary Laboratory WBC 7.5 X10^3/uL (3.6-10.0) 05/04/23 04:10 RBC 2.63 X10^6/uL (3.5-5.4) L 05/04/23 04:10 Hgb 8.0 g/dL (12.0-16.0) L 05/04/23 04:10 Hct 24.8 % (36.0-47.0) L 05/04/23 04:10 MCV 94.3 fL (80.0-100.0) 05/04/23 04:10 MCH 30.6 pg (27.0-34.0) 05/04/23 04:10 MCHC 32.5 g/dL (33.0-35.0) L 05/04/23 04:10 RDW 18.9 % (11.6-16.5) H 05/04/23 04:10 Plt Count 262 X10^3/uL (150.0-450.0) 05/04/23 04:10 Plt Count Comment Adequate (ADEQUATE) 05/04/23 04:10 MPV 8.4 fL (7.4-11.0) 05/04/23 04:10 Neut % (Auto) 95.5 % (42.0-75.0) H 05/04/23 04:10 Lymph % (Auto) 2.9 % (21.0-51.0) L 05/04/23 04:10 [place] % (Auto) 1.5 % (0.0-13.0) 05/04/23 04:10 Eos % (Auto) 0.0 % (0.9-2.9) L 05/04/23 04:10 Baso % (Auto) 0.1 % (0.2-1.0) L 05/04/23 04:10 Neut # (Auto) 7.1 x10^3/uL (2.2-4.8) H 05/04/23 04:10 Lymph # (Auto) 0.2 X10^3/uL (1.3-2.9) L 05/04/23 04:10 [place] # (Auto) 0.1 x10^3/uL (0.3-0.8) L 05/04/23 04:10 Eos # (Auto) 0.0 x10^3/uL (0.0-0.2) 05/04/23 04:10 Baso # (Auto) 0.0 X10^3/uL (0.0-0.1) 05/04/23 04:10 Absolute Nucleated RBC 0.1 /100WBC 05/04/23 04:10 Total Counted 100 05/04/23 04:10 Neutrophils % (Manual) 94 % (39-76) H 05/04/23 04:10 Lymphocytes % (Manual) 6 % (13-43) L 05/04/23 04:10 Monocytes % (Manual) 1 % (4-9) L 05/02/23 16:05 Plt Morphology Comment Normal (NORMAL) 05/04/23 04:10 RBC Morphology Abnormal (NORMAL) A 05/04/23 04:10 Anisocytosis Slight A 05/04/23 04:10 PT 14.0 SECONDS (11.8-14.3) 05/03/23 03:50 INR Target Range - 05/03/23 03:50 INR 1.10 (0.8-1.3) 05/03/23 03:50 APTT 36.2 SECONDS (22.9-36.5) 05/03/23 03:50 PTT Comment - 05/03/23 03:50 D-Dimer 1.79 ug/ml (0.0-0.57) H 05/02/23 16:05 Sample Site Rrad 05/04/23 10:26 ABG pH 7.400 (7.35-7.45) 05/04/23 10:26 ABG pCO2 34.0 mmHg (35.0-45.0) L 05/04/23 10:26 ABG pO2 48.0 mmHg (80.0-100.0) L* 05/04/23 10:26 ABG HCO3 21.1 mmol/L (22-26) L 05/04/23 10:26 ABG O2 Saturation 83.0 % (90-100) L* 05/04/23 10:26 ABG Base Excess -3.1 mmol/L (-2.0-2.0) L 05/04/23 10:26 Jaime Test Pos 05/04/23 10:26 A-a Gradient 59.0 mmHg 05/04/23 10:26 FiO2 21.0 05/04/23 10:26 Blood Gas Comments Pt margot well. kg 05/04/23 10:26 Sodium 138 mmol/L (136-145) 05/04/23 04:10 Corrected Sodium 147 mmol/L (136-145) H 05/04/23 04:10 Potassium 3.8 mmol/L (3.5-5.1) 05/04/23 04:10 Chloride 107 mmol/L (98-107) 05/04/23 04:10 Carbon Dioxide 20.0 mmol/L (21-32) L 05/04/23 04:10 BUN 18 mg/dL (7-18) 05/04/23 04:10 Creatinine 0.87 mg/dL (0.55-1.02) 05/04/23 04:10 Est GFR (MDRD) Af Amer > 60 (>60) 05/04/23 04:10 Est GFR (MDRD) Non-Af > 60 (>60) 05/04/23 04:10 Glucose 464 mg/dL (65-99) H 05/04/23 04:10 POC Glucose (mg/dL) 396 mg/dL (65-99) H 05/04/23 16:43 Lactic Acid 0.5 mmol/L (0.4-2.0) 05/02/23 16:05 Calcium 8.1 mg/dL (8.5-10.1) L 05/04/23 04:10 Corrected Calcium 9.5 mg/dL (8.5-10.1) 05/04/23 04:10 Magnesium 1.9 mg/dL (2.0-2.9) L 05/04/23 04:10 Total Bilirubin 0.20 mg/dL (0.2-1.0) 05/04/23 04:10 AST 30 Units/L (15-37) 05/04/23 04:10 ALT 35 Units/L (12-78) 05/04/23 04:10 Alkaline Phosphatase 85 Units/L (46-116) 05/04/23 04:10 Creatine Kinase 789 Units/L (26-192) H 05/03/23 09:36 B-Natriuretic Peptide 238 pg/mL (0-79) H 05/02/23 16:05 Total Protein 6.4 g/dL (6.4-8.2) 05/04/23 04:10 Albumin 2.3 g/dL (3.4-5.0) L 05/04/23 04:10 Globulin 4.1 g/dL (2.5-4.5) 05/04/23 04:10 Albumin/Globulin Ratio 0.6 Ratio (1.1-2.1) L 05/04/23 04:10 Specimen Type Clean catch urine 05/02/23 17:51 Urine Color [place] (YELLOW) 05/02/23 17:51 Urine Appearance Cloudy (CLEAR) 05/02/23 17:51 Urine pH Cancelled 05/02/23 17:51 Ur Specific [place] Cancelled 05/02/23 17:51 Urine Protein Cancelled 05/02/23 17:51 Urine Glucose (UA) Cancelled 05/02/23 17:51 Urine Ketones Cancelled 05/02/23 17:51 Urine Blood Cancelled 05/02/23 17:51 Urine Nitrite Cancelled 05/02/23 17:51 Urine Bilirubin Cancelled 05/02/23 17:51 Urine Urobilinogen Cancelled 05/02/23 17:51 Ur Leukocyte Esterase Cancelled 05/02/23 17:51 Urine RBC None seen /HPF (0-3) 05/02/23 17:51 Urine WBC Tntc /HPF (0-5) A 05/02/23 17:51 Ur Squamous Epith Cells Few /HPF (NEGATIVE) 05/02/23 17:51 Urine Bacteria 4+ /HPF (NEGATIVE) 05/02/23 17:51 Granular Casts Rare /LPF (NEGATIVE) 05/02/23 17:51 Ur Culture Indicated? Yes/culture set up 05/02/23 17:51 SARS-CoV-2 (PCR) Negative (NEGATIVE) 05/02/23 15:48 Influenza Type A (PCR) Negative (NEGATIVE) 05/02/23 15:48 Influenza Type B (PCR) Negative (NEGATIVE) 05/02/23 15:48 RSV (PCR) Negative (NEGATIVE) 05/02/23 15:48 Resp Viral Panel (PCR) See scanned report 05/02/23 21:45 Plan (1) Hypoxia: Status: Acute Narrative Support Text: Start lasix 20mg IV x1 dose. Continue IV hydration and atbx therapy, strict I&O's, bp/bs control, respiratory therapy and supplemental 02. Repeat AM chest xray. (2) Urinary tract bacterial infections: Status: Acute (3) Diabetes 1.5, managed as type 2: Status: Acute
--- NOTE | 2023-05-04 17:22 | PCM.PROG ---
Progress Note Progress Note for Day of Date of Exam: 05/03/23 Subjective Subjective: Pt is 63 WF, Er admission after presenting stating that since last Tuesday she has been having shortness of breath and a productive cough. She has been treated for a UTI during this time as well. Pt states she had rocephin IM and has been on po cipro 500mg bid. Yesterday, she went to Tasha Moore's office and was told that she should present to the ER due to low oxygen saturation. Upon arrival, patient had labs that revealed wbc of 12.5, hgb 9.7, Na 131, creatinine 1.14/BUN 17, BNP 238, CK 700, and Ddimer 1.79. She was febrile. Chest xray was negative for acute cardiopulmonary disease. She had a CTA chest that ruled out PE or aortic dissection. Patient was dyspneic with o2 SAT around 85% on room air. O2 saturation up to 98% on supplemental O2 3lper nc. She recovered well on oxygen. Blood pressure was hypotensive, resolved with hydration. Urine and blood cultures were obtained and patient was started on IV atbx and IV fluids while in ER. She was admitted for treatment. Morning labs showed wbc 8.2, hgb 8.2, sodium 135, magnesium 1.6, ck 775, BUN 13/0.90. Patient was started on methylprednisolone in addition to continuation of IV hydration and atbx therapy. She continues to be dyspneic with o2 sat around 89-91 thru the night despite 02 replacement. She is a type 2 diabetic with elevated blood sugar of 255 this morning. Past Medical Family Social History Allergies: Allergies tetracycline Allergy (Unknown, Verified 04/06/21 15:35) Reason: Drug allergy Vital Signs and I&O's Vital Signs: Vital Signs Temperature 98.0 F Temperature 97.9 F Pulse Rate 78 Pulse Rate 84 Pulse Rate 77 Pulse Rate 71 Pulse Rate 77 Pulse Rate 71 Pulse Rate 75 Respiratory Rate 22 Respiratory Rate 33 Respiratory Rate 20 Respiratory Rate 20 Respiratory Rate 20 Respiratory Rate 24 Blood Pressure 144/63 Blood Pressure 137/64 Blood Pressure 130/62 Blood Pressure 137/59 Blood Pressure 130/62 Blood Pressure 160/69 O2 Sat by Pulse Oximetry 95 O2 Sat by Pulse Oximetry 94 O2 Sat by Pulse Oximetry 93 O2 Sat by Pulse Oximetry 95 O2 Sat by Pulse Oximetry 92 O2 Sat by Pulse Oximetry 96 O2 Sat by Pulse Oximetry 92 O2 Sat by Pulse Oximetry 96 Intake and Output: Intake & Output 05/02/23 05/03/23 05/04/23 05/05/23 11:59 11:59 11:59 11:59 Intake Total 1065 / 1065 2650 / 2650 Balance 1065 / 1065 2650 / 2650 Physical Exam Oriented: Normal Eyes: Normal Ear: Normal Nose: Normal Throat: Dry Respiratory: Diminished Cardiovascular: Normal : Normal Auscultation: Bowel Sounds: Normal Tenderness: Normal Skin: Normal Musculoskeletal: Back:Lumbar Psychiatric: Normal Mood Description: Calm Affect: Normal Speech Pattern: Clear and Appropriate Laboratory and Diagnostics 05/04/23 04:10 05/04/23 04:10 Labs: 05/02/23 16:05 Blood Blood Culture Gram Stain - Final 05/02/23 16:05 Blood Blood Culture - Preliminary 05/02/23 16:14 Blood Blood Culture Gram Stain - Final 05/02/23 16:14 Blood Blood Culture - Preliminary 05/02/23 17:51 Urine,Clean Catch Urine Culture - Preliminary Laboratory WBC 7.5 X10^3/uL (3.6-10.0) 05/04/23 04:10 RBC 2.63 X10^6/uL (3.5-5.4) L 05/04/23 04:10 Hgb 8.0 g/dL (12.0-16.0) L 05/04/23 04:10 Hct 24.8 % (36.0-47.0) L 05/04/23 04:10 MCV 94.3 fL (80.0-100.0) 05/04/23 04:10 MCH 30.6 pg (27.0-34.0) 05/04/23 04:10 MCHC 32.5 g/dL (33.0-35.0) L 05/04/23 04:10 RDW 18.9 % (11.6-16.5) H 05/04/23 04:10 Plt Count 262 X10^3/uL (150.0-450.0) 05/04/23 04:10 Plt Count Comment Adequate (ADEQUATE) 05/04/23 04:10 MPV 8.4 fL (7.4-11.0) 05/04/23 04:10 Neut % (Auto) 95.5 % (42.0-75.0) H 05/04/23 04:10 Lymph % (Auto) 2.9 % (21.0-51.0) L 05/04/23 04:10 [place] % (Auto) 1.5 % (0.0-13.0) 05/04/23 04:10 Eos % (Auto) 0.0 % (0.9-2.9) L 05/04/23 04:10 Baso % (Auto) 0.1 % (0.2-1.0) L 05/04/23 04:10 Neut # (Auto) 7.1 x10^3/uL (2.2-4.8) H 05/04/23 04:10 Lymph # (Auto) 0.2 X10^3/uL (1.3-2.9) L 05/04/23 04:10 [place] # (Auto) 0.1 x10^3/uL (0.3-0.8) L 05/04/23 04:10 Eos # (Auto) 0.0 x10^3/uL (0.0-0.2) 05/04/23 04:10 Baso # (Auto) 0.0 X10^3/uL (0.0-0.1) 05/04/23 04:10 Absolute Nucleated RBC 0.1 /100WBC 05/04/23 04:10 Total Counted 100 05/04/23 04:10 Neutrophils % (Manual) 94 % (39-76) H 05/04/23 04:10 Lymphocytes % (Manual) 6 % (13-43) L 05/04/23 04:10 Monocytes % (Manual) 1 % (4-9) L 05/02/23 16:05 Plt Morphology Comment Normal (NORMAL) 05/04/23 04:10 RBC Morphology Abnormal (NORMAL) A 05/04/23 04:10 Anisocytosis Slight A 05/04/23 04:10 PT 14.0 SECONDS (11.8-14.3) 05/03/23 03:50 INR Target Range - 05/03/23 03:50 INR 1.10 (0.8-1.3) 05/03/23 03:50 APTT 36.2 SECONDS (22.9-36.5) 05/03/23 03:50 PTT Comment - 05/03/23 03:50 D-Dimer 1.79 ug/ml (0.0-0.57) H 05/02/23 16:05 Sample Site Rrad 05/04/23 10:26 ABG pH 7.400 (7.35-7.45) 05/04/23 10:26 ABG pCO2 34.0 mmHg (35.0-45.0) L 05/04/23 10:26 ABG pO2 48.0 mmHg (80.0-100.0) L* 05/04/23 10:26 ABG HCO3 21.1 mmol/L (22-26) L 05/04/23 10:26 ABG O2 Saturation 83.0 % (90-100) L* 05/04/23 10: ABG Base Excess -3.1 mmol/L (-2.0-2.0) L 05/04/23 10:26 Jaime Test Pos 05/04/23 10:26 A-a Gradient 59.0 mmHg 05/04/23 10:26 FiO2 21.0 05/04/23 10:26 Blood Gas Comments Pt margot well. kg 05/04/23 10:26 Sodium 138 mmol/L (136-145) 05/04/23 04:10 Corrected Sodium 147 mmol/L (136-145) H 05/04/23 04:10 Potassium 3.8 mmol/L (3.5-5.1) 05/04/23 04:10 Chloride 107 mmol/L (98-107) 05/04/23 04:10 Carbon Dioxide 20.0 mmol/L (21-32) L 05/04/23 04:10 BUN 18 mg/dL (7-18) 05/04/23 04:10 Creatinine 0.87 mg/dL (0.55-1.02) 05/04/23 04:10 Est GFR (MDRD) Af Amer > 60 (>60) 05/04/23 04:10 Est GFR (MDRD) Non-Af > 60 (>60) 05/04/23 04:10 Glucose 464 mg/dL (65-99) H 05/04/23 04:10 POC Glucose (mg/dL) 443 mg/dL (65-99) H 05/04/23 11:25 Lactic Acid 0.5 mmol/L (0.4-2.0) 05/02/23 16:05 Calcium 8.1 mg/dL (8.5-10.1) L 05/04/23 04:10 Corrected Calcium 9.5 mg/dL (8.5-10.1) 05/04/23 04:10 Magnesium 1.9 mg/dL (2.0-2.9) L 05/04/23 04:10 Total Bilirubin 0.20 mg/dL (0.2-1.0) 05/04/23 04:10 AST 30 Units/L (15-37) 05/04/23 04:10 ALT 35 Units/L (12-78) 05/04/23 04:10 Alkaline Phosphatase 85 Units/L (46-116) 05/04/23 04:10 Creatine Kinase 789 Units/L (26-192) H 05/03/23 09:36 B-Natriuretic Peptide 238 pg/mL (0-79) H 05/02/23 16:05 Total Protein 6.4 g/dL (6.4-8.2) 05/04/23 04:10 Albumin 2.3 g/dL (3.4-5.0) L 05/04/23 04:10 Globulin 4.1 g/dL (2.5-4.5) 05/04/23 04:10 Albumin/Globulin Ratio 0.6 Ratio (1.1-2.1) L 05/04/23 04:10 Specimen Type Clean catch urine 05/02/23 17:51 Urine Color [place] (YELLOW) 05/02/23 17:51 Urine Appearance Cloudy (CLEAR) 05/02/23 17:51 Urine pH Cancelled 05/02/23 17:51 Ur Specific [place] Cancelled 05/02/23 17:51 Urine Protein Cancelled 05/02/23 17:51 Urine Glucose (UA) Cancelled 05/02/23 17:51 Urine Ketones Cancelled 05/02/23 17:51 Urine Blood Cancelled 05/02/23 17:51 Urine Nitrite Cancelled 05/02/23 17:51 Urine Bilirubin Cancelled 05/02/23 17:51 Urine Urobilinogen Cancelled 05/02/23 17:51 Ur Leukocyte Esterase Cancelled 05/02/23 17:51 Urine RBC None seen /HPF (0-3) 05/02/23 17:51 Urine WBC Tntc /HPF (0-5) A 05/02/23 17:51 Ur Squamous Epith Cells Few /HPF (NEGATIVE) 05/02/23 17:51 Urine Bacteria 4+ /HPF (NEGATIVE) 05/02/23 17:51 Granular Casts Rare /LPF (NEGATIVE) 05/02/23 17:51 Ur Culture Indicated? Yes/culture set up 05/02/23 17:51 SARS-CoV-2 (PCR) Negative (NEGATIVE) 05/02/23 15:48 Influenza Type A (PCR) Negative (NEGATIVE) 05/02/23 15:48 Influenza Type B (PCR) Negative (NEGATIVE) 05/02/23 15:48 RSV (PCR) Negative (NEGATIVE) 05/02/23 15:48 Resp Viral Panel (PCR) See scanned report 05/02/23 21:45 Plan (1) Hypoxia: Status: Acute Narrative Support Text: Start magnesium replacement, continue IV hydration and atbx therapy, strict I&O's, bp/bs control, respiratory therapy and supplemental 02. Repeat AM chest xray. (2) Urinary tract bacterial infections: Status: Acute (3) Diabetes 1.5, managed as type 2: Status: Acute
[2023-05-04] MEDS: PYRIDIUM PO SCH (17:32)
[2023-05-04] MEDS: ZITHROMAX INJ 500 MG VIAL 500 MG in D5W 250 ML IV 250 ML IV SCH (20:00)
[2023-05-05 05:19] LABS: BASOPHILS % (AUTO) 0.1 % (0.2-1.0); HEMATOCRIT 22.9 % (36.0-47.0); HEMOGLOBIN 7.5 g/dL (12.0-16.0); LYMPHOCYTES # (AUTO) 0.3 X10^3/uL (1.3-2.9); LYMPHOCYTES % (AUTO) 2.9 % (21.0-51.0); MEAN CORPUSCULAR HEMOGLOBIN 30.5 pg (27.0-34.0); MEAN CORPUSCULAR HGB CONC 32.8 g/dL (33.0-35.0); MEAN CORPUSCULAR VOLUME 93.2 fL (80.0-100.0); MEAN PLATELET VOLUME 8.2 fL (7.4-11.0); MONOCYTES # (AUTO) 0.2 x10^3/uL (0.3-0.8); MONOCYTES % (AUTO) 1.5 % (0.0-13.0); NEUTROPHILS # (AUTO) 11.4 x10^3/uL (2.2-4.8); NEUTROPHILS % (AUTO) 95.5 % (42.0-75.0); PLATELET COUNT 268 X10^3/uL (150.0-450.0); RED BLOOD COUNT 2.46 X10^6/uL (3.5-5.4); RED CELL DISTRIBUTION WIDTH 18.7 % (11.6-16.5); WHITE BLOOD COUNT 11.9 X10^3/uL (3.6-10.0)
[2023-05-05 05:35] LABS: ALANINE AMINOTRANSFERASE 37 Units/L (12-78); ALBUMIN 2.4 g/dL (3.4-5.0); ALKALINE PHOSPHATASE 75 Units/L (46-116); ASPARTATE AMINO TRANSFERASE 22 Units/L (15-37); BLOOD UREA NITROGEN 30 mg/dL (7-18); CALCIUM 8.5 mg/dL (8.5-10.1); CARBON DIOXIDE 22.7 mmol/L (21-32); CHLORIDE 109 mmol/L (98-107); COR CA(FOR HYPOALB) 9.8 mg/dL (8.5-10.1); COR NA(FOR HYPERGLY) 145 mmol/L (136-145); CREATININE 1.02 mg/dL (0.55-1.02); GLUCOSE 312 mg/dL (65-99); MAGNESIUM 2.1 mg/dL (2.0-2.9); POTASSIUM 4.4 mmol/L (3.5-5.1); SODIUM 140 mmol/L (136-145); TOTAL PROTEIN 6.2 g/dL (6.4-8.2); eGFR NON BLACK RACES 58 (>60)
[2023-05-05 06:04] LABS: ABG ALLEN TEST POS; ABG BASE EXCESS -2.4 mmol/L (-2.0-2.0); ABG HCO3 21.6 mmol/L (22-26)
[2023-05-05 06:15] LABS: ANISOCYTOSIS SLIGHT; PLATELET MORPHOLOGY COMMENT NORMAL (NORMAL)
[2023-05-05 08:28] LABS: RETICULOCYTE % 1.24 % (0.8-2.2)
[2023-05-05] MEDS: D5W 250 ML IV 250 ML IV ONE (08:29)
[2023-05-05] MEDS: GLUCOPHAGE ONE ×2 (08:29→21:40)
[2023-05-05] MEDS: K-DUR TAB 20 MEQ PO SCH (08:39)
[2023-05-05] MEDS: LASIX IVP ONE (08:39)
--- NOTE | 2023-05-05 12:03 | RAD ---
EXAM:CHEST, 1 VIEWHISTORY:PNEUMONIA, SOB; COPD, HTN, HIGH CHOL, NECK, TONSILS, , TUBALCOMPARISON:Prior study or studies were utilized for comparison during interpretation with the most relevant dated 05/04/2023TECHNIQUE:CHEST, 1 VIEWFINDINGS:Chest:Lines and tubes: Cardiac leads overlie the chest.Mediastinum: Cardiomegaly.Pulmonary vessels: Pulmonary vasculature is prominent.Lung gamez: Increased interstitial opacities are notedPleura: No effusion. No pneumothorax.Bones and soft tissues: No acute osseous or soft tissue abnormality.IMPRESSION:1. No significant change compared to yesterdayTHIS IS AN ELECTRONICALLY VERIFIED FINAL REPORT05/05/2023 11:57 AM - Electronically signed by kD Pepper MD
[2023-05-05] MEDS ORDERED: CONSULT PHARMACY - ANTIBIOTIC XX SCH (15:00)
[2023-05-05] MEDS: MERREM VIAL 1 G in NS 100 ML IV 100 ML IV SCH (15:59)
--- NOTE | 2023-05-05 16:54 | PCM.PROG ---
Progress Note Progress Note for Day of Date of Exam: 05/05/23 Subjective Subjective: Pt is 63 WF, ER admission for hyopoxia, UTI. Upon arrival, patient had labs that revealed wbc of 12.5, hgb 9.7, Na 131, creatinine 1.14/BUN 17, BNP 238, CK 700, and Ddimer 1.79. She was febrile. Chest xray was negative for acute cardiopulmonary disease. Respiratory panel obtained and was negative for covid/flu/rsv- sent off for pcr testing. She had a CTA chest that ruled out PE. Patient was dyspneic with o2 SAT around 85% on room air. She recovered well on oxygen. Blood pressure was hypotensive, resolved with hydration. Urine and blood cultures were obtained and patient was started on IV atbx and IV fluids. Morning labs showed wbc 11.9 , hgb 7.5, sodium 140, BUN 30/1.02. CK improved to 238 from 789. BNP increased from 238 to 415 this morning. Respiratory PCR panel back and positive for influenza. She has been on methyl prednisone, which has increased blood sugar beyond her baseline- averaging around 350-400. She is on sliding scale coverage. Blood pressure is 143/67. 02 sat at 94% at 3L NC. AM ABG with p02 of 57% and FI02 of 21. Urine and blood cultures back and both positive for Ecoli. AM chest xray showed no significant change from yesterday- which showed pneumonia vs heart failure. Past Medical Family Social History Allergies: Allergies tetracycline Allergy (Unknown, Verified 04/06/21 15:35) Reason: Drug allergy Vital Signs and I&O's Vital Signs: Vital Signs Temperature 98.0 F Pulse Rate 72 Pulse Rate 90 Pulse Rate 82 Pulse Rate 73 Pulse Rate 80 Pulse Rate 68 Pulse Rate 73 Pulse Rate 69 Pulse Rate 71 Pulse Rate 84 Pulse Rate 72 Pulse Rate 79 Pulse Rate 72 Respiratory Rate 23 Respiratory Rate 23 Respiratory Rate 21 Respiratory Rate 32 Respiratory Rate 22 Respiratory Rate 16 Respiratory Rate 18 Respiratory Rate 14 Respiratory Rate 41 Respiratory Rate 41 Respiratory Rate 16 Blood Pressure 150/66 Blood Pressure 134/61 Blood Pressure 136/64 Blood Pressure 142/67 Blood Pressure 143/67 Blood Pressure 149/65 Blood Pressure 149/65 Blood Pressure 121/57 Blood Pressure 121/57 O2 Sat by Pulse Oximetry 91 O2 Sat by Pulse Oximetry 91 O2 Sat by Pulse Oximetry 93 O2 Sat by Pulse Oximetry 95 O2 Sat by Pulse Oximetry 91 O2 Sat by Pulse Oximetry 94 O2 Sat by Pulse Oximetry 92 O2 Sat by Pulse Oximetry 92 O2 Sat by Pulse Oximetry 94 O2 Sat by Pulse Oximetry 95 O2 Sat by Pulse Oximetry 86 O2 Sat by Pulse Oximetry 92 O2 Sat by Pulse Oximetry 93 Intake and Output: Intake & Output 05/03/23 05/04/23 05/05/23 05/06/23 11:59 11:59 11:59 11:59 Intake Total 1065 / 1065 2650 / 2650 4228 / 4228 Balance 1065 / 1065 2650 / 2650 4228 / 4228 Physical Exam Oriented: Normal Eyes: Normal Ear: Normal Nose: Normal Throat: Dry Respiratory: Diminished Cardiovascular: Normal : Normal Auscultation: Bowel Sounds: Normal Tenderness: Normal Skin: Normal Musculoskeletal: Back:Lumbar Psychiatric: Normal Mood Description: Calm Affect: Normal Speech Pattern: Clear and Appropriate Laboratory and Diagnostics 05/05/23 04:33 05/05/23 04:33 Labs: 05/02/23 17:51 Urine,Clean Catch Urine Culture - Final Escherichia Coli Esbl 05/02/23 16:14 Blood Blood Culture Gram Stain - Final 05/02/23 16:14 Blood Blood Culture - Final Escherichia Coli Esbl 05/02/23 16:05 Blood Blood Culture Gram Stain - Final 05/02/23 16:05 Blood Blood Culture - Final Escherichia Coli Esbl Laboratory WBC 11.9 X10^3/uL (3.6-10.0) H 05/05/23 04:33 RBC 2.46 X10^6/uL (3.5-5.4) L 05/05/23 04:33 Hgb 7.5 g/dL (12.0-16.0) L 05/05/23 04:33 Hct 22.9 % (36.0-47.0) L 05/05/23 04:33 MCV 93.2 fL (80.0-100.0) 05/05/23 04:33 MCH 30.5 pg (27.0-34.0) 05/05/23 04:33 MCHC 32.8 g/dL (33.0-35.0) L 05/05/23 04:33 RDW 18.7 % (11.6-16.5) H 05/05/23 04:33 Plt Count 268 X10^3/uL (150.0-450.0) 05/05/23 04:33 Plt Count Comment Adequate (ADEQUATE) 05/05/23 04:33 MPV 8.2 fL (7.4-11.0) 05/05/23 04:33 Neut % (Auto) 95.5 % (42.0-75.0) H 05/05/23 04:33 Lymph % (Auto) 2.9 % (21.0-51.0) L 05/05/23 04:33 [place] % (Auto) 1.5 % (0.0-13.0) 05/05/23 04:33 Eos % (Auto) 0.0 % (0.9-2.9) L 05/05/23 04:33 Baso % (Auto) 0.1 % (0.2-1.0) L 05/05/23 04:33 Neut # (Auto) 11.4 x10^3/uL (2.2-4.8) H 05/05/23 04:33 Lymph # (Auto) 0.3 X10^3/uL (1.3-2.9) L 05/05/23 04:33 [place] # (Auto) 0.2 x10^3/uL (0.3-0.8) L 05/05/23 04:33 Eos # (Auto) 0.0 x10^3/uL (0.0-0.2) 05/05/23 04:33 Baso # (Auto) 0.0 X10^3/uL (0.0-0.1) 05/05/23 04:33 Absolute Nucleated RBC 0.0 /100WBC 05/05/23 04:33 Total Counted 100 05/05/23 04:33 Neutrophils % (Manual) 93 % (39-76) H 05/05/23 04:33 Lymphocytes % (Manual) 5 % (13-43) L 05/05/23 04:33 Monocytes % (Manual) 2 % (4-9) L 05/05/23 04:33 Plt Morphology Comment Normal (NORMAL) 05/05/23 04:33 RBC Morphology Normal (NORMAL) 05/05/23 04:33 Anisocytosis Slight A 05/05/23 04:33 Absolute Retic 0.0308 10^6/uL 05/05/23 04:33 Percent Retic 1.24 % (0.8-2.2) 05/05/23 04:33 PT 14.0 SECONDS (11.8-14.3) 05/03/23 03:50 INR Target Range - 05/03/23 03:50 INR 1.10 (0.8-1.3) 05/03/23 03:50 APTT 36.2 SECONDS (22.9-36.5) 05/03/23 03:50 PTT Comment - 05/03/23 03:50 D-Dimer 1.79 ug/ml (0.0-0.57) H 05/02/23 16:05 Sample Site R rad 05/05/23 05:18 ABG pH 7.410 (7.35-7.45) 05/05/23 05:18 ABG pCO2 34.0 mmHg (35.0-45.0) L 05/05/23 05:18 ABG pO2 57.0 mmHg (80.0-100.0) L 05/05/23 05:18 ABG HCO3 21.6 mmol/L (22-26) L 05/05/23 05:18 ABG O2 Saturation 90.0 % (90-100) 05/05/23 05:18 ABG Base Excess -2.4 mmol/L (-2.0-2.0) L 05/05/23 05:18 Jaime Test Pos 05/05/23 05:18 A-a Gradient 50.0 mmHg 05/05/23 05:18 FiO2 21.0 05/05/23 05:18 Blood Gas Comments 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 05/05/23 05:18 Sodium 140 mmol/L (136-145) 05/05/23 04:33 Corrected Sodium 145 mmol/L (136-145) 05/05/23 04:33 Potassium 4.4 mmol/L (3.5-5.1) 05/05/23 04:33 Chloride 109 mmol/L (98-107) H 05/05/23 04:33 Carbon Dioxide 22.7 mmol/L (21-32) 05/05/23 04:33 BUN 30 mg/dL (7-18) H 05/05/23 04:33 Creatinine 1.02 mg/dL (0.55-1.02) 05/05/23 04:33 Est GFR (MDRD) Af Amer > 60 (>60) 05/05/23 04:33 Est GFR (MDRD) Non-Af 58 (>60) L 05/05/23 04:33 Glucose 312 mg/dL (65-99) H 05/05/23 04:33 POC Glucose (mg/dL) 363 mg/dL (65-99) H 05/05/23 11:05 Lactic Acid 0.5 mmol/L (0.4-2.0) 05/02/23 16:05 Calcium 8.5 mg/dL (8.5-10.1) 05/05/23 04:33 Corrected Calcium 9.8 mg/dL (8.5-10.1) 05/05/23 04:33 Magnesium 2.1 mg/dL (2.0-2.9) 05/05/23 04:33 Iron 41 ug/dL (50-175) L 05/05/23 08:50 Ferritin 541 ng/mL (8-252) H 05/05/23 08:50 Total Bilirubin 0.20 mg/dL (0.2-1.0) 05/05/23 04:33 AST 22 Units/L (15-37) 05/05/23 04:33 ALT 37 Units/L (12-78) 05/05/23 04:33 Alkaline Phosphatase 75 Units/L (46-116) 05/05/23 04:33 Creatine Kinase 267 Units/L (26-192) H 05/05/23 04:33 B-Natriuretic Peptide 415 pg/mL (0-79) H 05/05/23 08:50 Total Protein 6.2 g/dL (6.4-8.2) L 05/05/23 04:33 Albumin 2.4 g/dL (3.4-5.0) L 05/05/23 04:33 Globulin 3.8 g/dL (2.5-4.5) 05/05/23 04:33 Albumin/Globulin Ratio 0.6 Ratio (1.1-2.1) L 05/05/23 04:33 Vitamin B12 1936 pg/mL (193-986) H 05/05/23 08:50 Folate 5.2 ng/mL (>8.6) L 05/05/23 08:50 Specimen Type Clean catch urine 05/02/23 17:51 Urine Color [place] (YELLOW) 05/02/23 17:51 Urine Appearance Cloudy (CLEAR) 05/02/23 17:51 Urine pH Cancelled 05/02/23 17:51 Ur Specific [place] Cancelled 05/02/23 17:51 Urine Protein Cancelled 05/02/23 17:51 Urine Glucose (UA) Cancelled 05/02/23 17:51 Urine Ketones Cancelled 05/02/23 17:51 Urine Blood Cancelled 05/02/23 17:51 Urine Nitrite Cancelled 05/02/23 17:51 Urine Bilirubin Cancelled 05/02/23 17:51 Urine Urobilinogen Cancelled 05/02/23 17:51 Ur Leukocyte Esterase Cancelled 05/02/23 17:51 Urine RBC None seen /HPF (0-3) 05/02/23 17:51 Urine WBC Tntc /HPF (0-5) A 05/02/23 17:51 Ur Squamous Epith Cells Few /HPF (NEGATIVE) 05/02/23 17:51 Urine Bacteria 4+ /HPF (NEGATIVE) 05/02/23 17:51 Granular Casts Rare /LPF (NEGATIVE) 05/02/23 17:51 Ur Culture Indicated? Yes/culture set up 05/02/23 17:51 SARS-CoV-2 (PCR) Negative (NEGATIVE) 05/02/23 15:48 Influenza Type A (PCR) Negative (NEGATIVE) 05/02/23 15:48 Influenza Type B (PCR) Negative (NEGATIVE) 05/02/23 15:48 RSV (PCR) Negative (NEGATIVE) 05/02/23 15:48 Resp Viral Panel (PCR) See scanned report 05/02/23 21:45 Plan (1) Hypoxia: Status: Acute Narrative Support Text: obtain anemia panel and echocardiogram, repeat blood cultures. Continue IV hydration and atbx therapy, strict I&O's, bp/bs control, respiratory therapy and supplemental 02. (2) Pneumonia: Status: Acute (3) Influenza: Status: Acute (4) Urinary tract bacterial infections: Status: Acute (5) Diabetes 1.5, managed as type 2: Status: Acute
[2023-05-06 05:09] LABS: BASOPHILS % (AUTO) 0.2 % (0.2-1.0); HEMOGLOBIN 7.6 g/dL (12.0-16.0); LYMPHOCYTES # (AUTO) 0.4 X10^3/uL (1.3-2.9); LYMPHOCYTES % (AUTO) 4.3 % (21.0-51.0); MEAN CORPUSCULAR HEMOGLOBIN 30.7 pg (27.0-34.0); MEAN CORPUSCULAR HGB CONC 32.9 g/dL (33.0-35.0); MEAN CORPUSCULAR VOLUME 93.4 fL (80.0-100.0); MEAN PLATELET VOLUME 8.1 fL (7.4-11.0); MONOCYTES # (AUTO) 0.2 x10^3/uL (0.3-0.8); MONOCYTES % (AUTO) 2.6 % (0.0-13.0); NEUTROPHILS % (AUTO) 92.9 % (42.0-75.0); PLATELET COUNT 265 X10^3/uL (150.0-450.0); RED BLOOD COUNT 2.46 X10^6/uL (3.5-5.4); RED CELL DISTRIBUTION WIDTH 19.7 % (11.6-16.5); WHITE BLOOD COUNT 8.6 X10^3/uL (3.6-10.0)
[2023-05-06 05:14] LABS: ALANINE AMINOTRANSFERASE 39 Units/L (12-78); ALBUMIN 2.5 g/dL (3.4-5.0); ALKALINE PHOSPHATASE 78 Units/L (46-116); ASPARTATE AMINO TRANSFERASE 18 Units/L (15-37); BLOOD UREA NITROGEN 36 mg/dL (7-18); CALCIUM 8.7 mg/dL (8.5-10.1); CARBON DIOXIDE 22.4 mmol/L (21-32); CHLORIDE 111 mmol/L (98-107); COR CA(FOR HYPOALB) 9.9 mg/dL (8.5-10.1); COR NA(FOR HYPERGLY) 147 mmol/L (136-145); CREATININE 1.05 mg/dL (0.55-1.02); GLUCOSE 284 mg/dL (65-99); POTASSIUM 4.5 mmol/L (3.5-5.1); SODIUM 143 mmol/L (136-145); TOTAL PROTEIN 6.1 g/dL (6.4-8.2); eGFR NON BLACK RACES 56 (>60)
[2023-05-06 05:50] LABS: ANISOCYTOSIS SLIGHT; OVALOCYTES SLIGHT; PLATELET MORPHOLOGY COMMENT NORMAL (NORMAL); TARGET CELLS SLIGHT; TEAR DROP CELLS SLIGHT
[2023-05-06] MEDS ORDERED: GLUCOPHAGE ONE (07:53)
[2023-05-06 09:11] LABS: ABG ALLEN TEST POS; ABG BASE EXCESS -1.7 mmol/L (-2.0-2.0); ABG HCO3 21.5 mmol/L (22-26)
--- NOTE | 2023-05-06 10:06 | RAD ---
EXAM:Portable chestHISTORY:COPDCOMPARISON:05/05/2019 br.br.br.br noted. No acute alveolar infiltrates or pleural effusions are identified. Mild hyperinflation is present. Bony thorax is unremarkable.IMPRESSION:Lungs are mildly hyperinflated but free of acute infiltrates. Consistent with COPD in the appropriate clinical settingMild cardiomegaly without congestive heart failureTHIS IS AN ELECTRONICALLY VERIFIED FINAL REPORT05/06/2023 10:03 AM - Electronically signed by Josesito Lucero MD
[2023-05-06] MEDS ORDERED: NS 100 ML IV 100 ML ONE (13:04)
[2023-05-06] MEDS: INVanz INJ 1 GRAM VIAL 1 G in NS 100 ML IV 100 ML IV SCH (13:12)
[2023-05-06] MEDS: GLUCOPHAGE ONE (21:20)
[2023-05-07 04:52] LABS: BASOPHILS % (AUTO) 0.1 % (0.2-1.0); HEMATOCRIT 23.1 % (36.0-47.0); HEMOGLOBIN 7.7 g/dL (12.0-16.0); LYMPHOCYTES # (AUTO) 0.5 X10^3/uL (1.3-2.9); LYMPHOCYTES % (AUTO) 6.5 % (21.0-51.0); MEAN CORPUSCULAR HEMOGLOBIN 30.9 pg (27.0-34.0); MEAN CORPUSCULAR HGB CONC 33.3 g/dL (33.0-35.0); MEAN CORPUSCULAR VOLUME 92.6 fL (80.0-100.0); MEAN PLATELET VOLUME 8.2 fL (7.4-11.0); MONOCYTES # (AUTO) 0.2 x10^3/uL (0.3-0.8); MONOCYTES % (AUTO) 3.3 % (0.0-13.0); NEUTROPHILS # (AUTO) 6.6 x10^3/uL (2.2-4.8); NEUTROPHILS % (AUTO) 90.1 % (42.0-75.0); PLATELET COUNT 254 X10^3/uL (150.0-450.0); RED CELL DISTRIBUTION WIDTH 19.3 % (11.6-16.5); WHITE BLOOD COUNT 7.3 X10^3/uL (3.6-10.0)
[2023-05-07 05:02] LABS: ALANINE AMINOTRANSFERASE 40 Units/L (12-78); ALBUMIN 2.6 g/dL (3.4-5.0); ALKALINE PHOSPHATASE 75 Units/L (46-116); ASPARTATE AMINO TRANSFERASE 15 Units/L (15-37); BLOOD UREA NITROGEN 31 mg/dL (7-18); CALCIUM 8.5 mg/dL (8.5-10.1); CARBON DIOXIDE 23.9 mmol/L (21-32); CHLORIDE 110 mmol/L (98-107); COR CA(FOR HYPOALB) 9.6 mg/dL (8.5-10.1); COR NA(FOR HYPERGLY) 144 mmol/L (136-145); CREATININE 0.88 mg/dL (0.55-1.02); GLUCOSE 250 mg/dL (65-99); POTASSIUM 4.5 mmol/L (3.5-5.1); SODIUM 140 mmol/L (136-145); TOTAL PROTEIN 5.9 g/dL (6.4-8.2); eGFR NON BLACK RACES > 60 (>60)
[2023-05-07 05:33] LABS: PLATELET MORPHOLOGY COMMENT NORMAL (NORMAL)
[2023-05-07 05:34] LABS: ANISOCYTOSIS SLIGHT; OVALOCYTES SLIGHT; TEAR DROP CELLS SLIGHT
[2023-05-07] MEDS: GLUCOPHAGE ONE (08:21)
--- NOTE | 2023-05-07 12:08 | RAD ---
EXAM:CHEST, 1 VIEWHISTORY:Shortness of breathCOMPARISON:05/06/2023FINDINGS:The trachea is midline. The cardiac silhouette is unremarkable . The lungs are clear without focal infiltrate or effusion. The bony thorax is unremarkable.IMPRESSION:No acute cardiopulmonary disease.THIS IS AN ELECTRONICALLY VERIFIED FINAL REPORT05/07/2023 12:04 PM - Electronically signed by Slick Moon MD
[2023-05-07] MEDS ORDERED: GLUCOPHAGE ONE (19:18)
--- NOTE | 2023-05-07 20:22 | PCM.PROG ---
Progress Note - Progress Note for Day of Date of Exam: 05/07/23 - Subjective Subjective: This is a 63-year-old white female patient of . She is currently inpatient status for treatment of influenza, pneumonia, and hypoxia. Blood cultures are positive for E. coli. Urine culture positive for E.coli. Patient has been on IV hydration, electrolyte replacement therapy, supplement O2, respiratory therapy, and pulmonary toileting. The patient had some suggestive congestive heart failure on her chest x-ray with no known coronary artery disease. She had an echocardiogram obtained with ejection fraction of 67%. The patient also received Lasix 20 mg on Tuesday and she received 40 mg IV dose . The patient had good urine output. The patient states that she is feeling much better, still 89-90% on room air this morning. Saturations increase to the upper 90s on oxygen. Due to her positive blood cultures, she will need a PIC line placement and 14 days of IV antibiotics. The nurse practitioner discussed this with the patients family yesterday. She will receive Invanz at home following discharge. She denied any chest pain or increased shortness of breath. This morning, the patient is just a little bit down from being in the hospital, she is normally not sick. On examination, the patient has diffuse diminished mid to lower lobe bilaterally. No audible rales. Heart rate reveals a controlled rate and rhythm. Abdomen is soft and nontender. Bowel sounds are present times all four quadrants. She has no upper or lower extremity edema noted on assessment. We will continue her IV fluids, IV antibiotics, corticosteroids, nebulizer treatments, and current plan of care today. Otherwise, we will follow-up with AM labs and continue to mo nitor. TIME SPENT ON CLINICAL ASSESSMENT, REVIEWING LABS AND IMAGING, DECISION MAKING, AND DOCUMENTATION GREATER THAN 45 MINUTES. - Past Medical Family Social History Past Med/Fam/Surg Hx: No changes since H&P Allergies: Allergies tetracycline Allergy (Unknown, Verified 04/06/21 15:35) Reason: Drug allergy - Review of Systems ROS: No change since H&P - Vital Signs and I&O's Vital Signs: Vital Signs Temperature 97.6 F Pulse Rate 75 Pulse Rate 78 Pulse Rate 75 Pulse Rate 66 Pulse Rate 69 Pulse Rate 74 Pulse Rate 72 Pulse Rate 66 Respiratory Rate 26 Respiratory Rate 22 Respiratory Rate 17 Respiratory Rate 16 Respiratory Rate 19 Respiratory Rate 18 Respiratory Rate 21 Respiratory Rate 16 Blood Pressure 156/68 Blood Pressure 171/79 Blood Pressure 165/73 Blood Pressure 174/74 Blood Pressure 163/67 Blood Pressure 163/67 Blood Pressure 168/76 Blood Pressure 168/76 O2 Sat by Pulse Oximetry 99 O2 Sat by Pulse Oximetry 99 O2 Sat by Pulse Oximetry 94 O2 Sat by Pulse Oximetry 91 O2 Sat by Pulse Oximetry 92 O2 Sat by Pulse Oximetry 92 O2 Sat by Pulse Oximetry 94 O2 Sat by Pulse Oximetry 93 Intake and Output: Intake & Output 05/05/23 05/06/23 05/07/23 05/08/23 11:59 11:59 11:59 11:59 Intake Total 4228 / 4228 3694 / 3694 2516 / 2516 755 / 755 Balance 4228 / 4228 3694 / 3694 2516 / 2516 755 / 755 - Physical Exam Oriented: Normal Eyes: Normal Ear: Normal Nose: Normal Throat: Normal, Dry Respiratory: Diminished Cardiovascular: Normal : Normal Auscultation: Bowel Sounds: Normal Palpation: Normal Tenderness: Normal Skin: Normal Musculoskeletal: Back:Lumbar Psychiatric: Normal Mood Description: Calm Affect: Normal Speech Pattern: Clear, Appropriate - Laboratory and Diagnostics Result Diagrams: 05/07/23 04:15 05/07/23 04:15 Labs: 05/02/23 17:51 Urine,Clean Catch Urine Culture - Final Escherichia Coli Esbl 05/02/23 16:14 Blood Blood Culture Gram Stain - Final 05/02/23 16:14 Blood Blood Culture - Final Escherichia Coli Esbl 05/02/23 16:05 Blood Blood Culture Gram Stain - Final 05/02/23 16:05 Blood Blood Culture - Final Escherichia Coli Esbl Laboratory WBC 7.3 X10^3/uL (3.6-10.0) 05/07/23 04:15 RBC 2.50 X10^6/uL (3.5-5.4) L 05/07/23 04:15 Hgb 7.7 g/dL (12.0-16.0) L 05/07/23 04:15 Hct 23.1 % (36.0-47.0) L 05/07/23 04:15 MCV 92.6 fL (80.0-100.0) 05/07/23 04:15 MCH 30.9 pg (27.0-34.0) 05/07/23 04:15 MCHC 33.3 g/dL (33.0-35.0) 05/07/23 04:15 RDW 19.3 % (11.6-16.5) H 05/07/23 04:15 Plt Count 254 X10^3/uL (150.0-450.0) 05/07/23 04:15 Plt Count Comment Adequate (ADEQUATE) 05/07/23 04:15 MPV 8.2 fL (7.4-11.0) 05/07/23 04:15 Neut % (Auto) 90.1 % (42.0-75.0) H 05/07/23 04:15 Lymph % (Auto) 6.5 % (21.0-51.0) L 05/07/23 04:15 [place] % (Auto) 3.3 % (0.0-13.0) 05/07/23 04:15 Eos % (Auto) 0.0 % (0.9-2.9) L 05/07/23 04:15 Baso % (Auto) 0.1 % (0.2-1.0) L 05/07/23 04:15 Neut # (Auto) 6.6 x10^3/uL (2.2-4.8) H 05/07/23 04:15 Lymph # (Auto) 0.5 X10^3/uL (1.3-2.9) L 05/07/23 04:15 [place] # (Auto) 0.2 x10^3/uL (0.3-0.8) L 05/07/23 04:15 Eos # (Auto) 0.0 x10^3/uL (0.0-0.2) 05/07/23 04:15 Baso # (Auto) 0.0 X10^3/uL (0.0-0.1) 05/07/23 04:15 Absolute Nucleated RBC 0.1 /100WBC 05/07/23 04:15 Total Counted 100 05/07/23 04:15 Neutrophils % (Manual) 92 % (39-76) H 05/07/23 04:15 Lymphocytes % (Manual) 5 % (13-43) L 05/07/23 04:15 Monocytes % (Manual) 3 % (4-9) L 05/07/23 04:15 Plt Morphology Comment Normal (NORMAL) 05/07/23 04:15 RBC Morphology Abnormal (NORMAL) A 05/07/23 04:15 Anisocytosis Slight A 05/07/23 04:15 Target Cells Slight A 05/06/23 04:10 Tear Drop Cells Slight A 05/07/23 04:15 Ovalocytes Slight A 05/07/23 04:15 Absolute Retic 0.0308 10^6/uL 05/05/23 04:33 Percent Retic 1.24 % (0.8-2.2) 05/05/23 04:33 PT 14.0 SECONDS (11.8-14.3) 05/03/23 03:50 INR Target Range - 05/03/23 03:50 INR 1.10 (0.8-1.3) 05/03/23 03:50 APTT 36.2 SECONDS (22.9-36.5) 05/03/23 03:50 PTT Comment - 05/03/23 03:50 D-Dimer 1.79 ug/ml (0.0-0.57) H 05/02/23 16:05 Sample Site Lrad 05/06/23 09:05 ABG pH 7.450 (7.35-7.45) 05/06/23 09:05 ABG pCO2 31.0 mmHg (35.0-45.0) L 05/06/23 09:05 ABG pO2 52.0 mmHg (80.0-100.0) L 05/06/23 09:05 ABG HCO3 21.5 mmol/L (22-26) L 05/06/23 09:05 ABG O2 Saturation 88.0 % (90-100) L 05/06/23 09:05 ABG Base Excess -1.7 mmol/L (-2.0-2.0) 05/06/23 09:05 Jaime Test Pos 05/06/23 09:05 A-a Gradient 59.0 mmHg 05/06/23 09:05 FiO2 21.0 05/06/23 09:05 Blood Gas Comments Asaf well ms/eb 05/06/23 09:05 Sodium 140 mmol/L (136-145) 05/07/23 04:15 Corrected Sodium 144 mmol/L (136-145) 05/07/23 04:15 Potassium 4.5 mmol/L (3.5-5.1) 05/07/23 04:15 Chloride 110 mmol/L (98-107) H 05/07/23 04:15 Carbon Dioxide 23.9 mmol/L (21-32) 05/07/23 04:15 BUN 31 mg/dL (7-18) H 05/07/23 04:15 Creatinine 0.88 mg/dL (0.55-1.02) 05/07/23 04:15 Est GFR (MDRD) Af Amer > 60 (>60) 05/07/23 04:15 Est GFR (MDRD) Non-Af > 60 (>60) 05/07/23 04:15 Glucose 250 mg/dL (65-99) H 05/07/23 04:15 POC Glucose (mg/dL) 308 mg/dL (65-99) H 05/07/23 19:30 Lactic Acid 0.5 mmol/L (0.4-2.0) 05/02/23 16:05 Calcium 8.5 mg/dL (8.5-10.1) 05/07/23 04:15 Corrected Calcium 9.6 mg/dL (8.5-10.1) 05/07/23 04:15 Magnesium 2.1 mg/dL (2.0-2.9) 05/05/23 04:33 Iron 41 ug/dL (50-175) L 05/05/23 08:50 Ferritin 541 ng/mL (8-252) H 05/05/23 08:50 Total Bilirubin 0.40 mg/dL (0.2-1.0) 05/07/23 04:15 AST 15 Units/L (15-37) 05/07/23 04:15 ALT 40 Units/L (12-78) 05/07/23 04:15 Alkaline Phosphatase 75 Units/L (46-116) 05/07/23 04:15 Creatine Kinase 267 Units/L (26-192) H 05/05/23 04:33 B-Natriuretic Peptide 415 pg/mL (0-79) H 05/05/23 08:50 Total Protein 5.9 g/dL (6.4-8.2) L 05/07/23 04:15 Albumin 2.6 g/dL (3.4-5.0) L 05/07/23 04:15 Globulin 3.3 g/dL (2.5-4.5) 05/07/23 04:15 Albumin/Globulin Ratio 0.8 Ratio (1.1-2.1) L 05/07/23 04:15 Vitamin B12 1936 pg/mL (193-986) H 05/05/23 08:50 Folate 5.2 ng/mL (>8.6) L 05/05/23 08:50 Specimen Type Clean catch urine 05/02/23 17:51 Urine Color [place] (YELLOW) 05/02/23 17:51 Urine Appearance Cloudy (CLEAR) 05/02/23 17:51 Urine pH Cancelled 05/02/23 17:51 Ur Specific [place] Cancelled 05/02/23 17:51 Urine Protein Cancelled 05/02/23 17:51 Urine Glucose (UA) Cancelled 05/02/23 17:51 Urine Ketones Cancelled 05/02/23 17:51 Urine Blood Cancelled 05/02/23 17:51 Urine Nitrite Cancelled 05/02/23 17:51 Urine Bilirubin Cancelled 05/02/23 17:51 Urine Urobilinogen Cancelled 05/02/23 17:51 Ur Leukocyte Esterase Cancelled 05/02/23 17:51 Urine RBC None seen /HPF (0-3) 05/02/23 17:51 Urine WBC Tntc /HPF (0-5) A 05/02/23 17:51 Ur Squamous Epith Cells Few /HPF (NEGATIVE) 05/02/23 17:51 Urine Bacteria 4+ /HPF (NEGATIVE) 05/02/23 17:51 Granular Casts Rare /LPF (NEGATIVE) 05/02/23 17:51 Ur Culture Indicated? Yes/culture set up 05/02/23 17:51 Stl Occult Blood (IFOB) Negative (NEGATIVE) 05/05/23 15:35 SARS-CoV-2 (PCR) Negative (NEGATIVE) 05/02/23 15:48 Influenza Type A (PCR) Negative (NEGATIVE) 05/02/23 15:48 Influenza Type B (PCR) Negative (NEGATIVE) 05/02/23 15:48 RSV (PCR) Negative (NEGATIVE) 05/02/23 15:48 Resp Viral Panel (PCR) See scanned report 05/02/23 21:45 - Plan (1) Influenza Status: Acute Plan: continue supplemental oxygen, iv fluids, iv antibiotics, corticosteroids, and neb tx. follow-up with am labs and chest xray (2) Pneumonia Status: Acute Qualifiers: Aspiration pneumonia type: unspecified Laterality: unspecified laterality Lung location: unspecified part of lung (3) Hypoxia Status: Acute (4) Urinary tract bacterial infections Status: Acute (5) Diabetes 1.5, managed as type 2 Status: Chronic
[2023-05-08 05:16] LABS: BASOPHILS % (AUTO) 0.1 % (0.2-1.0); LYMPHOCYTES # (AUTO) 0.3 X10^3/uL (1.3-2.9); MEAN CORPUSCULAR HEMOGLOBIN 30.8 pg (27.0-34.0); MEAN CORPUSCULAR HGB CONC 33.2 g/dL (33.0-35.0); MEAN CORPUSCULAR VOLUME 92.9 fL (80.0-100.0); MEAN PLATELET VOLUME 7.9 fL (7.4-11.0); MONOCYTES # (AUTO) 0.3 x10^3/uL (0.3-0.8); MONOCYTES % (AUTO) 3.8 % (0.0-13.0); NEUTROPHILS # (AUTO) 6.5 x10^3/uL (2.2-4.8); NEUTROPHILS % (AUTO) 92.1 % (42.0-75.0); PLATELET COUNT 258 X10^3/uL (150.0-450.0); RED BLOOD COUNT 2.58 X10^6/uL (3.5-5.4); RED CELL DISTRIBUTION WIDTH 19.5 % (11.6-16.5)
[2023-05-08 05:38] LABS: ALANINE AMINOTRANSFERASE 38 Units/L (12-78); ALBUMIN 2.5 g/dL (3.4-5.0); ALKALINE PHOSPHATASE 72 Units/L (46-116); ASPARTATE AMINO TRANSFERASE 14 Units/L (15-37); BLOOD UREA NITROGEN 30 mg/dL (7-18); CALCIUM 8.6 mg/dL (8.5-10.1); CARBON DIOXIDE 22.8 mmol/L (21-32); CHLORIDE 111 mmol/L (98-107); COR CA(FOR HYPOALB) 9.8 mg/dL (8.5-10.1); COR NA(FOR HYPERGLY) 150 mmol/L (136-145); CREATININE 0.86 mg/dL (0.55-1.02); GLUCOSE 248 mg/dL (65-99); POTASSIUM 4.8 mmol/L (3.5-5.1); SODIUM 146 mmol/L (136-145); eGFR NON BLACK RACES > 60 (>60)
[2023-05-08 05:41] LABS: ANISOCYTOSIS SLIGHT; METAMYELOCYTES % 2; PLATELET MORPHOLOGY COMMENT NORMAL (NORMAL)
[2023-05-08 05:42] LABS: OVALOCYTES SLIGHT; TEAR DROP CELLS SLIGHT
[2023-05-08] MEDS: GLUCOPHAGE ONE (08:19)
--- NOTE | 2023-05-08 08:46 | RAD ---
EXAM:CHEST, 1 VIEWHISTORY:Shortness of breath.COMPARISON:05/07/2023.FINDINGS:Th e trachea is midline. There has been previous ACDF. The cardiac silhouette is within normal limits. Diffuse interstitial prominence throughout both lungs is grossly unchanged. There is no focal consolidation or significant pleural effusion. There is no pneumothorax. The bony thorax is grossly unremarkable.IMPRESSION:Nonspecific interstitial prominence throughout both lungs. No focal consolidation or pleural effusion.THIS IS AN ELECTRONICALLY VERIFIED FINAL REPORT05/08/2023 8:42 AM - Electronically signed by Eleazar Heller MD
[2023-05-08] MEDS: DUONEB 0.5 MG/3 MG (3 mL) NEB SCH (08:53)
[2023-05-08] MEDS: TOPROL XL PO SCH (10:28)
[2023-05-08] MEDS: NS 1,000 ML IV 1,000 ML IV SCH (16:54)
--- NOTE | 2023-05-08 17:27 | PCM.PROG ---
Progress Note - Progress Note for Day of Date of Exam: 05/08/23 - Subjective Subjective: is a 63-year-old white female patient of . She is currently inpatient status for treatment of influenza, pneumonia, and hypoxia. Blood cultures are positive for E. coli. Urine culture positive for E.coli. Patient has been on IV hydration, electrolyte replacement therapy, supplement O2, respiratory therapy, and pulmonary toileting. The patient had some suggestive congestive heart failure on her chest x-ray with no known coronary artery disease. She had an echocardiogram obtained with ejection fraction of 67%. The patient also received Lasix 20 mg on Tuesday and she received 40 mg IV dose . The patient had good urine output. The patient states that she is feeling much better. Her oxygen saturations have remained in the 90s on oxygen via nasal cannula at 3 lpm. Due to her positive blood cultures, she will need a PIC line placement and 14 days of IV antibiotics. The nurse practitioner discussed this with the patients family yesterday. She will receive Invanz at home following discharge. She denied any chest pain or increased shortness of breath. This morning, the patient is hypertensive. On examination, the patient has diffuse diminished mid to lower lobe bilaterally. No audible rales. Heart rate reveals a controlled rate and rhythm. Abdomen is soft and nontender. Bowel sounds are present times all four quadrants. She has no upper or lower extremity edema noted on assessment. We will continue her IV fluids, IV antibiotics, corticosteroids, nebulizer treatments, and current plan of care today. We will add metoprolol xl 50mg daily. Otherwise, we will follow-up with AM labs and continue to monitor. TIME SPENT ON CLINICAL ASSESSMENT, REVIEWING LABS AND IMAGING, DECISION MAKING, AND DOCUMENTATION GREATER THAN 45 MINUTES. - Past Medical Family Social History Past Med/Fam/Surg Hx: No changes since H&P Allergies: Allergies tetracycline Allergy (Unknown, Verified 04/06/21 15:35) Reason: Drug allergy - Review of Systems ROS: No change since H&P - Vital Signs and I&O's Vital Signs: Vital Signs Temperature 97.8 F Pulse Rate 67 Pulse Rate 70 Pulse Rate 74 Pulse Rate 67 Respiratory Rate 22 Respiratory Rate 16 Respiratory Rate 20 Respiratory Rate 15 Blood Pressure 178/70 Blood Pressure 171/73 Blood Pressure 181/74 Blood Pressure 160/70 O2 Sat by Pulse Oximetry 93 O2 Sat by Pulse Oximetry 95 O2 Sat by Pulse Oximetry 91 O2 Sat by Pulse Oximetry 92 Intake and Output: Intake & Output 05/06/23 05/07/23 05/08/23 05/09/23 11:59 11:59 11:59 11:59 Intake Total 3694 / 3694 1596 / 2516 2041 Balance 3694 / 3694 9936 / 2516 2041 - Physical Exam Oriented: Normal Eyes: Normal Ear: Normal Nose: Normal Throat: Normal, Dry Respiratory: Diminished Cardiovascular: Normal : Normal Auscultation: Bowel Sounds: Normal Tenderness: Normal Skin: Normal Musculoskeletal: Back:Lumbar Psychiatric: Normal Mood Description: Calm Affect: Normal Speech Pattern: Clear, Appropriate - Laboratory and Diagnostics Result Diagrams: 05/08/23 04:05 05/08/23 04:05 Labs: 05/02/23 17:51 Urine,Clean Catch Urine Culture - Final Escherichia Coli Esbl 05/02/23 16:14 Blood Blood Culture Gram Stain - Final 05/02/23 16:14 Blood Blood Culture - Final Escherichia Coli Esbl 05/02/23 16:05 Blood Blood Culture Gram Stain - Final 05/02/23 16:05 Blood Blood Culture - Final Escherichia Coli Esbl Laboratory WBC 7.0 X10^3/uL (3.6-10.0) 05/08/23 04:05 RBC 2.58 X10^6/uL (3.5-5.4) L 05/08/23 04:05 Hgb 8.0 g/dL (12.0-16.0) L 05/08/23 04:05 Hct 24.0 % (36.0-47.0) L 05/08/23 04:05 MCV 92.9 fL (80.0-100.0) 05/08/23 04:05 MCH 30.8 pg (27.0-34.0) 05/08/23 04:05 MCHC 33.2 g/dL (33.0-35.0) 05/08/23 04:05 RDW 19.5 % (11.6-16.5) H 05/08/23 04:05 Plt Count 258 X10^3/uL (150.0-450.0) 05/08/23 04:05 Plt Count Comment Adequate (ADEQUATE) 05/08/23 04:05 MPV 7.9 fL (7.4-11.0) 05/08/23 04:05 Neut % (Auto) 92.1 % (42.0-75.0) H 05/08/23 04:05 Lymph % (Auto) 4.0 % (21.0-51.0) L 05/08/23 04:05 Evangeline % (Auto) 3.8 % (0.0-13.0) 05/08/23 04:05 Eos % (Auto) 0.0 % (0.9-2.9) L 05/08/23 04:05 Baso % (Auto) 0.1 % (0.2-1.0) L 05/08/23 04:05 Neut # (Auto) 6.5 x10^3/uL (2.2-4.8) H 05/08/23 04:05 Lymph # (Auto) 0.3 X10^3/uL (1.3-2.9) L 05/08/23 04:05 Evangeline # (Auto) 0.3 x10^3/uL (0.3-0.8) 05/08/23 04:05 Eos # (Auto) 0.0 x10^3/uL (0.0-0.2) 05/08/23 04:05 Baso # (Auto) 0.0 X10^3/uL (0.0-0.1) 05/08/23 04:05 Absolute Nucleated RBC 0.0 /100WBC 05/08/23 04:05 Total Counted 100 05/08/23 04:05 Neutrophils % (Manual) 92 % (39-76) H 05/08/23 04:05 Lymphocytes % (Manual) 5 % (13-43) L 05/08/23 04:05 Monocytes % (Manual) 1 % (4-9) L 05/08/23 04:05 Metamyelocytes % 2 05/08/23 04:05 Plt Morphology Comment Normal (NORMAL) 05/08/23 04:05 RBC Morphology Abnormal (NORMAL) A 05/08/23 04:05 Anisocytosis Slight A 05/08/23 04:05 Target Cells Slight A 05/06/23 04:10 Tear Drop Cells Slight A 05/08/23 04:05 Ovalocytes Slight A 05/08/23 04:05 Absolute Retic 0.0308 10^6/uL 05/05/23 04:33 Percent Retic 1.24 % (0.8-2.2) 05/05/23 04:33 PT 14.0 SECONDS (11.8-14.3) 05/03/23 03:50 INR Target Range - 05/03/23 03:50 INR 1.10 (0.8-1.3) 05/03/23 03:50 APTT 36.2 SECONDS (22.9-36.5) 05/03/23 03:50 PTT Comment - 05/03/23 03:50 D-Dimer 1.79 ug/ml (0.0-0.57) H 05/02/23 16:05 Sample Site Lrad 05/06/23 09:05 ABG pH 7.450 (7.35-7.45) 05/06/23 09:05 ABG pCO2 31.0 mmHg (35.0-45.0) L 05/06/23 09:05 ABG pO2 52.0 mmHg (80.0-100.0) L 05/06/23 09:05 ABG HCO3 21.5 mmol/L (22-26) L 05/06/23 09:05 ABG O2 Saturation 88.0 % (90-100) L 05/06/23 09:05 ABG Base Excess -1.7 mmol/L (-2.0-2.0) 05/06/23 09:05 Jaime Test Pos 05/06/23 09:05 A-a Gradient 59.0 mmHg 05/06/23 09:05 FiO2 21.0 05/06/23 09:05 Blood Gas Comments Asaf well ms/eb 05/06/23 09:05 Sodium 146 mmol/L (136-145) H 05/08/23 04:05 Corrected Sodium 150 mmol/L (136-145) H 05/08/23 04:05 Potassium 4.8 mmol/L (3.5-5.1) 05/08/23 04:05 Chloride 111 mmol/L (98-107) H 05/08/23 04:05 Carbon Dioxide 22.8 mmol/L (21-32) 05/08/23 04:05 BUN 30 mg/dL (7-18) H 05/08/23 04:05 Creatinine 0.86 mg/dL (0.55-1.02) 05/08/23 04:05 Est GFR (MDRD) Af Amer > 60 (>60) 05/08/23 04:05 Est GFR (MDRD) Non-Af > 60 (>60) 05/08/23 04:05 Glucose 248 mg/dL (65-99) H 05/08/23 04:05 POC Glucose (mg/dL) 231 mg/dL (65-99) H 05/08/23 16:44 Lactic Acid 0.5 mmol/L (0.4-2.0) 05/02/23 16:05 Calcium 8.6 mg/dL (8.5-10.1) 05/08/23 04:05 Corrected Calcium 9.8 mg/dL (8.5-10.1) 05/08/23 04:05 Magnesium 2.1 mg/dL (2.0-2.9) 05/05/23 04:33 Iron 41 ug/dL (50-175) L 05/05/23 08:50 Ferritin 541 ng/mL (8-252) H 05/05/23 08:50 Total Bilirubin 0.40 mg/dL (0.2-1.0) 05/08/23 04:05 AST 14 Units/L (15-37) L 05/08/23 04:05 ALT 38 Units/L (12-78) 05/08/23 04:05 Alkaline Phosphatase 72 Units/L (46-116) 05/08/23 04:05 Creatine Kinase 267 Units/L (26-192) H 05/05/23 04:33 B-Natriuretic Peptide 415 pg/mL (0-79) H 05/05/23 08:50 Total Protein 6.0 g/dL (6.4-8.2) L 05/08/23 04:05 Albumin 2.5 g/dL (3.4-5.0) L 05/08/23 04:05 Globulin 3.5 g/dL (2.5-4.5) 05/08/23 04:05 Albumin/Globulin Ratio 0.7 Ratio (1.1-2.1) L 05/08/23 04:05 Vitamin B12 1936 pg/mL (193-986) H 05/05/23 08:50 Folate 5.2 ng/mL (>8.6) L 05/05/23 08:50 Specimen Type Clean catch urine 05/02/23 17:51 Urine Color Thomas (YELLOW) 05/02/23 17:51 Urine Appearance Cloudy (CLEAR) 05/02/23 17:51 Urine pH Cancelled 05/02/23 17:51 Ur Specific Templeton Cancelled 05/02/23 17:51 Urine Protein Cancelled 05/02/23 17:51 Urine Glucose (UA) Cancelled 05/02/23 17:51 Urine Ketones Cancelled 05/02/23 17:51 Urine Blood Cancelled 05/02/23 17:51 Urine Nitrite Cancelled 05/02/23 17:51 Urine Bilirubin Cancelled 05/02/23 17:51 Urine Urobilinogen Cancelled 05/02/23 17:51 Ur Leukocyte Esterase Cancelled 05/02/23 17:51 Urine RBC None seen /HPF (0-3) 05/02/23 17:51 Urine WBC Tntc /HPF (0-5) A 05/02/23 17:51 Ur Squamous Epith Cells Few /HPF (NEGATIVE) 05/02/23 17:51 Urine Bacteria 4+ /HPF (NEGATIVE) 05/02/23 17:51 Granular Casts Rare /LPF (NEGATIVE) 05/02/23 17:51 Ur Culture Indicated? Yes/culture set up 05/02/23 17:51 Stl Occult Blood (IFOB) Negative (NEGATIVE) 05/05/23 15:35 SARS-CoV-2 (PCR) Negative (NEGATIVE) 05/02/23 15:48 Influenza Type A (PCR) Negative (NEGATIVE) 05/02/23 15:48 Influenza Type B (PCR) Negative (NEGATIVE) 05/02/23 15:48 RSV (PCR) Negative (NEGATIVE) 05/02/23 15:48 Resp Viral Panel (PCR) See scanned report 05/02/23 21:45 - Plan (1) Influenza Status: Acute Plan: continue supplemental oxygen, iv fluids, iv antibiotics, corticosteroids, and neb tx. follow-up with am labs and chest xray (2) Pneumonia Status: Acute Qualifiers: Aspiration pneumonia type: unspecified Laterality: unspecified laterality Lung location: unspecified part of lung (3) Hypoxia Status: Acute (4) Urinary tract bacterial infections Status: Acute (5) Diabetes 1.5, managed as type 2 Status: Chronic (6) Hypertension Status: Chronic Qualifiers: Hypertension type: primary hypertension Qualified Code(s): I10 - Essential (primary) hypertension Plan: start metoprolol xl 50mg daily
[2023-05-08] MEDS ORDERED: GLUCOPHAGE ONE (19:54)
[2023-05-08] MEDS ORDERED: ZESTRIL TAB 20 MG ONE (19:56)
[2023-05-08] MEDS: ROBITUSSIN DM PO PRN (20:14)
[2023-05-08] MEDS: ZESTRIL TAB 20 MG PO SCH (21:23)
[2023-05-09 05:05] LABS: BASOPHILS % (AUTO) 0.4 % (0.2-1.0); HEMATOCRIT 25.2 % (36.0-47.0); HEMOGLOBIN 8.2 g/dL (12.0-16.0); LYMPHOCYTES # (AUTO) 0.3 X10^3/uL (1.3-2.9); LYMPHOCYTES % (AUTO) 4.3 % (21.0-51.0); MEAN CORPUSCULAR HEMOGLOBIN 30.4 pg (27.0-34.0); MEAN CORPUSCULAR HGB CONC 32.5 g/dL (33.0-35.0); MEAN CORPUSCULAR VOLUME 93.8 fL (80.0-100.0); MEAN PLATELET VOLUME 8.1 fL (7.4-11.0); MONOCYTES # (AUTO) 0.3 x10^3/uL (0.3-0.8); MONOCYTES % (AUTO) 4.3 % (0.0-13.0); PLATELET COUNT 267 X10^3/uL (150.0-450.0); RED BLOOD COUNT 2.68 X10^6/uL (3.5-5.4); RED CELL DISTRIBUTION WIDTH 19.7 % (11.6-16.5); WHITE BLOOD COUNT 6.6 X10^3/uL (3.6-10.0)
[2023-05-09 05:12] LABS: ALANINE AMINOTRANSFERASE 37 Units/L (12-78); ALBUMIN 2.6 g/dL (3.4-5.0); ALKALINE PHOSPHATASE 71 Units/L (46-116); ASPARTATE AMINO TRANSFERASE 16 Units/L (15-37); BLOOD UREA NITROGEN 31 mg/dL (7-18); CALCIUM 8.5 mg/dL (8.5-10.1); CARBON DIOXIDE 23.7 mmol/L (21-32); CHLORIDE 109 mmol/L (98-107); COR CA(FOR HYPOALB) 9.6 mg/dL (8.5-10.1); COR NA(FOR HYPERGLY) 147 mmol/L (136-145); CREATININE 0.79 mg/dL (0.55-1.02); GLUCOSE 231 mg/dL (65-99); POTASSIUM 4.7 mmol/L (3.5-5.1); SODIUM 144 mmol/L (136-145); TOTAL PROTEIN 5.9 g/dL (6.4-8.2); eGFR NON BLACK RACES > 60 (>60)
[2023-05-09 05:50] LABS: ANISOCYTOSIS SLIGHT; OVALOCYTES SLIGHT; PLATELET MORPHOLOGY COMMENT NORMAL (NORMAL); TARGET CELLS SLIGHT
--- NOTE | 2023-05-09 06:19 | RAD ---
EXAM:CHEST, 1 VIEWHISTORY:SOB;COMPARISON:Prior study or studies were utilized for comparison during interpretation with the most relevant dated 05/08/2023TECHNIQUE:CHEST, 1 VIEWFINDINGS:Chest:Lines and tubes: Cardiac leads overlie the chest.Mediastinum: Cardiac and mediastinal shadow is within normal limits for size and contour.Pulmonary vessels: There is pulmonary vascular congestion.Lung gamez: No suspicious airspace opacity.Pleura: No effusion. No pneumothorax.Bones and soft tissues: No acute osseous or soft tissue abnormality.IMPRESSION:1. Findings suggest heart failure. Overall congestion is similar to yesterday's examTHIS IS AN ELECTRONICALLY VERIFIED FINAL REPORT05/09/2023 6:17 AM - Electronically signed by Dk Pepper MD
[2023-05-09] MEDS ORDERED: CONSULT PHARMACY - POTASSIUM & MAGNESIUM XX SCH (09:00)
[2023-05-09] MEDS ORDERED: GLUCOPHAGE ONE ×2 (09:02→19:26)
[2023-05-09 09:15] LABS: ABG BASE EXCESS 2.1 mmol/L (-2.0-2.0); ABG HCO3 25.3 mmol/L (22-26)
[2023-05-09] MEDS: LASIX IVP SCH (09:18)
[2023-05-09] MEDS: K-DUR TAB 20 MEQ PO SCH (09:19)
--- NOTE | 2023-05-09 13:17 | DR.UPDATE ---
H&P Update Prescription drug monitoring program results: PDMP was not reviewed H&P Reviewed: Yes Any changes to H&P?: No Patient was examined?: Yes Vital Signs: Temp Pulse Resp BP Pulse Ox O2 Del Method O2 Flow Rate 05/09/23 11:00 133/62 05/09/23 11:00 69 33 H 94 L Nasal Cannula 2 05/09/23 10:00 146/66 05/09/23 10:00 73 20 91 L Nasal Cannula 2 05/09/23 09:00 68 86 L 05/09/23 09:00 Nasal Cannula 3 05/09/23 09:00 161/71 Nasal Cannula 2 05/09/23 09:00 71 24 87 L 05/09/23 08:00 97.6 F 164/74 Nasal Cannula 2 05/09/23 08:00 62 18 93 L 05/09/23 07:00 186/81 05/09/23 07:00 54 L 16 95 05/09/23 06:02 167/74 05/09/23 06:02 58 L 17 94 L 05/09/23 06:00 185/80 05/09/23 06:00 61 13 95 05/09/23 05:02 60 17 93 L 05/09/23 05:02 174/81 05/09/23 05:00 58 L 21 92 L 05/09/23 05:00 193/77 05/09/23 04:00 60 14 93 L 05/09/23 04:00 178/77 05/09/23 03:00 176/75 05/09/23 03:00 61 21 95 05/09/23 02:00 59 L 16 94 L 05/09/23 02:00 172/74 05/09/23 01:00 63 17 94 L 05/09/23 01:00 169/72 05/09/23 00:01 71 43 H 94 L 05/09/23 00:01 155/63 05/09/23 00:00 72 34 H 93 L 05/08/23 23:00 177/74 05/08/23 23:00 65 15 95 05/08/23 22:00 69 16 95 05/08/23 22:00 169/72 05/08/23 22:00 169/72 05/08/23 22:00 69 16 95 05/08/23 21:00 69 17 89 L 05/08/23 21:00 159/67 05/08/23 21:00 159/67 05/08/23 20:24 178/77 05/08/23 20:24 69 21 94 L 05/08/23 20:00 63 18 93 L 05/08/23 19:01 186/83 05/08/23 19:01 62 19 89 L 05/08/23 19:00 63 24 89 L 05/08/23 18:52 166/75 05/08/23 18:52 69 24 89 L 05/08/23 18:00 63 15 93 L 05/08/23 18:00 185/84 05/08/23 17:33 176/78 05/08/23 17:33 70 18 95 05/08/23 17:17 60 16 99 05/08/23 17:17 193/75 05/09/23 06:00 56 L 15 167/76 93 L Nasal Cannula 3 05/09/23 05:00 60 17 174/81 93 L Nasal Cannula 3 05/09/23 04:00 97.7 F 63 22 175/77 94 L Nasal Cannula 3 05/09/23 03:00 57 L 15 176/75 94 L Nasal Cannula 3 05/08/23 21:16 18 05/09/23 02:00 56 L 16 172/74 94 L Nasal Cannula 3 05/09/23 01:00 62 15 169/72 95 Nasal Cannula 3 05/09/23 00:00 97.7 F 64 15 155/63 94 L Nasal Cannula 3 05/08/23 23:00 64 14 177/74 95 Nasal Cannula 3 05/08/23 22:00 69 17 169/72 93 L Nasal Cannula 3 05/08/23 21:00 69 17 159/67 93 L Nasal Cannula 3 05/08/23 20:00 97.9 F 76 21 178/77 94 L Nasal Cannula 3 05/08/23 20:24 63 97 05/08/23 20:24 Nasal Cannula 3 05/08/23 20:16 18 05/08/23 19:00 Nasal Cannula 3 05/08/23 19:00 65 16 165/75 93 L Nasal Cannula 3 05/08/23 18:00 63 15 185/84 93 L Nasal Cannula 3 05/08/23 17:00 70 18 176/78 95 Nasal Cannula 3 05/08/23 16:00 97.2 F L 65 20 173/76 93 L Nasal Cannula 3 05/08/23 15:00 61 17 170/74 93 L Nasal Cannula 3 05/08/23 14:00 66 17 199/83 92 L Nasal Cannula 3 05/08/23 13:00 67 22 178/70 93 L Nasal Cannula 3 05/08/23 12:00 97.8 F 70 16 171/73 95 Nasal Cannula 3 05/08/23 11:00 74 20 181/74 91 L Nasal Cannula 3 05/08/23 10:00 67 15 160/70 92 L Nasal Cannula 3 05/08/23 09:00 64 18 180/77 98 Nasal Cannula 3 05/08/23 08:00 97.7 F 62 19 166/74 95 Nasal Cannula 3 05/08/23 08:54 Nasal Cannula 3 05/08/23 08:53 76 96 05/08/23 07:00 67 17 178/73 95 Nasal Cannula 3 05/08/23 07:00 Nasal Cannula 3 05/08/23 06:00 98.1 F 67 18 165/73 93 L Nasal Cannula 3 05/08/23 05:00 74 16 168/71 93 L Nasal Cannula 3 05/08/23 04:00 98.1 F 65 18 165/71 94 L Nasal Cannula 3 05/08/23 03:00 64 16 180/79 94 L Nasal Cannula 3 05/08/23 02:00 64 18 170/77 94 L Nasal Cannula 3 05/08/23 01:00 67 16 163/70 94 L Nasal Cannula 3 05/08/23 00:00 98.1 F 70 15 174/72 94 L Nasal Cannula 3 05/07/23 23:00 71 15 164/69 93 L Nasal Cannula 3 05/07/23 22:00 68 16 168/72 93 L Nasal Cannula 3 05/07/23 21:00 72 16 170/72 95 Nasal Cannula 3 05/07/23 20:00 98.0 F 85 20 142/65 95 Nasal Cannula 3 05/07/23 20:24 Nasal Cannula 3 05/07/23 20:23 87 95 05/07/23 19:00 Nasal Cannula 3 05/07/23 19:00 75 26 H 156/68 99 Nasal Cannula 3 05/07/23 18:00 78 22 99 02/17/24 18:00 171/79 05/07/23 17:00 75 17 94 L 05/07/23 17:00 165/73 05/07/23 16:00 97.6 F 05/07/23 16:00 66 16 91 L 05/07/23 16:00 174/74 05/07/23 15:00 163/67 05/07/23 15:00 69 19 92 L 05/07/23 15:00 163/67 05/07/23 14:52 168/76 05/07/23 14:52 74 18 92 L 05/07/23 12:00 97.8 F 05/07/23 14:00 72 21 94 L 05/07/23 14:00 168/76 05/07/23 13:00 66 16 93 L 05/07/23 12:00 75 16 93 L 05/07/23 11:00 76 19 92 L 05/07/23 10:00 70 17 91 L 05/07/23 10:00 180/74 05/07/23 09:00 166/77 05/07/23 09:00 74 18 98 05/07/23 08:47 82 93 L 05/07/23 08:47 Nasal Cannula 3 05/07/23 08:00 172/75 05/07/23 08:00 97.7 F 73 17 93 L 05/07/23 07:00 70 18 91 L 05/07/23 07:00 Nasal Cannula 3 05/07/23 07:00 171/74 05/07/23 06:59 68 19 91 L 05/07/23 06:00 173/77 05/07/23 06:00 91 H 22 93 L 05/07/23 05:00 160/70 05/07/23 05:00 72 19 89 L 05/07/23 04:00 174/77 05/07/23 04:00 67 17 90 L 05/07/23 03:03 153/70 05/07/23 03:03 72 27 H 91 L 05/07/23 03:00 68 20 93 L 05/07/23 03:00 170/74 05/07/23 06:00 77 18 172/77 93 L 05/07/23 05:00 70 18 160/70 92 L 05/07/23 04:00 64 16 174/77 90 L 05/07/23 03:00 97.5 F L 74 14 153/70 05/07/23 02:00 70 18 92 L 05/07/23 02:00 70 18 158/72 92 L 05/07/23 01:00 73 22 161/69 93 L 05/07/23 00:01 67 28 H 93 L 05/07/23 00:01 168/78 05/07/23 00:00 68 21 92 L 05/06/23 23:00 85 20 93 L 05/06/23 23:00 138/63 05/06/23 22:00 74 24 92 L 05/06/23 22:00 168/72 05/06/23 21:01 81 26 H 91 L 05/06/23 21:01 135/62 05/06/23 21:00 80 20 91 L 05/06/23 20:00 74 24 91 L 05/06/23 20:00 165/72 05/06/23 19:34 81 31 H 91 L 05/06/23 19:34 157/71 05/06/23 19:34 157/71 05/06/23 19:00 71 20 90 L 05/07/23 01:00 70 21 161/69 93 L 05/07/23 00:00 65 20 138/63 92 L 05/06/23 23:00 98.0 F 70 18 138/63 93 L 05/06/23 22:00 76 24 168/72 94 L 05/06/23 21:00 83 21 135/62 90 L 05/06/23 20:32 76 93 L 05/06/23 20:32 Nasal Cannula 3 05/06/23 20:00 70 22 165/72 92 L 05/06/23 19:00 97.7 F 70 20 157/71 90 L 05/06/23 19:00 Nasal Cannula 3 05/06/23 18:00 78 39 H 92 L 05/06/23 17:00 76 27 H 92 L 05/06/23 16:10 68 24 92 L 05/06/23 16:10 165/70 05/06/23 16:02 98.0 F 124 H 17 05/06/23 15:00 80 29 H 91 L 05/06/23 15:00 152/70 05/06/23 14:00 83 20 94 L 05/06/23 14:00 147/67 FiO2 05/09/23 11:00 02/19/24 11:00 05/09/23 10:00 05/09/23 10:00 05/09/23 09:00 05/09/23 09:00 32 05/09/23 09:00 05/09/23 09:00 05/09/23 08:00 05/09/23 08:00 05/09/23 07:00 05/09/23 07:00 05/09/23 06:02 05/09/23 06:02 05/09/23 06:00 05/09/23 06:00 05/09/23 05:02 05/09/23 05:02 05/09/23 05:00 05/09/23 05:00 05/09/23 04:00 05/09/23 04:00 05/09/23 03:00 05/09/23 03:00 05/09/23 02:00 05/09/23 02:00 05/09/23 01:00 05/09/23 01:00 05/09/23 00:01 05/09/23 00:01 05/09/23 00:00 05/08/23 23:00 05/08/23 23:00 05/08/23 22:00 05/08/23 22:00 05/08/23 22:00 05/08/23 22:00 05/08/23 21:00 05/08/23 21:00 05/08/23 21:00 05/08/23 20:24 05/08/23 20:24 05/08/23 20:00 05/08/23 19:01 05/08/23 19:01 05/08/23 19:00 05/08/23 18:52 05/08/23 18:52 05/08/23 18:00 05/08/23 18:00 05/08/23 17:33 05/08/23 17:33 05/08/23 17:17 05/08/23 17:17 05/09/23 06:00 05/09/23 05:00 05/09/23 04:00 05/09/23 03:00 05/08/23 21:16 05/09/23 02:00 05/09/23 01:00 05/09/23 00:00 05/08/23 23:00 05/08/23 22:00 05/08/23 21:00 05/08/23 20:00 05/08/23 20:24 05/08/23 20:24 32 05/08/23 20:16 05/08/23 19:00 05/08/23 19:00 05/08/23 18:00 05/08/23 17:00 05/08/23 16:00 05/08/23 15:00 05/08/23 14:00 05/08/23 13:00 05/08/23 12:00 05/08/23 11:00 05/08/23 10:00 05/08/23 09:00 05/08/23 08:00 05/08/23 08:54 32 05/08/23 08:53 05/08/23 07:00 05/08/23 07:00 05/08/23 06:00 05/08/23 05:00 05/08/23 04:00 05/08/23 03:00 05/08/23 02:00 05/08/23 01:00 05/08/23 00:00 05/07/23 23:00 05/07/23 22:00 05/07/23 21:00 05/07/23 20:00 05/07/23 20:24 32 05/07/23 20:23 05/07/23 19:00 05/07/23 19:00 05/07/23 18:00 05/07/23 18:00 05/07/23 17:00 05/07/23 17:00 05/07/23 16:00 05/07/23 16:00 05/07/23 16:00 05/07/23 15:00 05/07/23 15:00 05/07/23 15:00 05/07/23 14:52 05/07/23 14:52 05/07/23 12:00 05/07/23 14:00 05/07/23 14:00 05/07/23 13:00 05/07/23 12:00 05/07/23 11:00 05/07/23 10:00 05/07/23 10:00 05/07/23 09:00 05/07/23 09:00 05/07/23 08:47 05/07/23 08:47 32 05/07/23 08:00 05/07/23 08:00 05/07/23 07:00 05/07/23 07:00 05/07/23 07:00 05/07/23 06:59 05/07/23 06:00 05/07/23 06:00 05/07/23 05:00 05/07/23 05:00 05/07/23 04:00 05/07/23 04:00 05/07/23 03:03 05/07/23 03:03 05/07/23 03:00 05/07/23 03:00 05/07/23 06:00 05/07/23 05:00 05/07/23 04:00 05/07/23 03:00 05/07/23 02:00 05/07/23 02:00 05/07/23 01:00 05/07/23 00:01 05/07/23 00:01 05/07/23 00:00 05/06/23 23:00 05/06/23 23:00 05/06/23 22:00 05/06/23 22:00 05/06/23 21:01 05/06/23 21:01 05/06/23 21:00 05/06/23 20:00 05/06/23 20:00 05/06/23 19:34 05/06/23 19:34 05/06/23 19:34 05/06/23 19:00 05/07/23 01:00 05/07/23 00:00 05/06/23 23:00 05/06/23 22:00 05/06/23 21:00 05/06/23 20:32 05/06/23 20:32 32 05/06/23 20:00 05/06/23 19:00 05/06/23 19:00 05/06/23 18:00 05/06/23 17:00 05/06/23 16:10 05/06/23 16:10 05/06/23 16:02 05/06/23 15:00 05/06/23 15:00 05/06/23 14:00 05/06/23 14:00 Procedures (ALL) - Abscess I/D Consent obtained: written consent - Central Line Placement PCM.CLCO: written consent Time out performed: Yes Patient placed pm monitor/pulse ox: Yes MD prep: mask, gown, gloves, other Centrial line prep: chlorhexidine scrub, sterile drapes applied Local anesthsia used: lidocane 1% Ultrasound used for placement: Yes (right basilic id'd via u/s and cannulation visualized) Central line lumen ininserted: double (5.5fr, 50cm cath. 5cm exposed) Post procedure: good blood return, all ports aspirated, flushed,capped, sterile dressing applied Post procedure xray: tip oc catheter in good position (appears svc), no pneumothorax seen Patient tolerated procedure: Yes Complications: none
--- NOTE | 2023-05-09 13:19 | RAD ---
EXAM:CHEST, 1 VIEW 12:57 p.m.HISTORY:PICC LINE;COMPARISON:05/09/2023, 4:16 a.m.FINDINGS:A right peripherally inserted central catheter is present with the tip in the expected location of the superior vena cava. No pneumothorax.Venous congestion is present seen as cephalization of blood vessels. This may be improved from earlier today. No focal abnormality to suggest pneumonia. No pleural effusion.Cardiomegaly is present.The bones are unremarkable.EKG leads are noted. Cervical fixation hardware is present.IMPRESSION:1. Uncomplicated PICC insertion2. Improved venous congestionTHIS IS AN ELECTRONICALLY VERIFIED FINAL REPORT05/09/2023 1:16 PM - Electronically signed by Tomas Saldana MD
[2023-05-09] MEDS: NORVASC TAB 5 MG PO SCH (14:15)
[2023-05-09] MEDS ORDERED: ZESTRIL TAB 20 MG ONE (19:26)
[2023-05-10 05:29] LABS: BASOPHILS % (AUTO) 0.1 % (0.2-1.0); HEMATOCRIT 26.1 % (36.0-47.0); HEMOGLOBIN 8.6 g/dL (12.0-16.0); LYMPHOCYTES # (AUTO) 0.4 X10^3/uL (1.3-2.9); LYMPHOCYTES % (AUTO) 5.4 % (21.0-51.0); MEAN CORPUSCULAR HEMOGLOBIN 30.7 pg (27.0-34.0); MEAN CORPUSCULAR HGB CONC 32.8 g/dL (33.0-35.0); MEAN CORPUSCULAR VOLUME 93.5 fL (80.0-100.0); MEAN PLATELET VOLUME 7.9 fL (7.4-11.0); MONOCYTES # (AUTO) 0.4 x10^3/uL (0.3-0.8); MONOCYTES % (AUTO) 5.4 % (0.0-13.0); NEUTROPHILS # (AUTO) 6.2 x10^3/uL (2.2-4.8); NEUTROPHILS % (AUTO) 89.1 % (42.0-75.0); PLATELET COUNT 271 X10^3/uL (150.0-450.0); RED BLOOD COUNT 2.79 X10^6/uL (3.5-5.4); RED CELL DISTRIBUTION WIDTH 19.9 % (11.6-16.5)
[2023-05-10 05:41] LABS: ALANINE AMINOTRANSFERASE 44 Units/L (12-78); ALBUMIN 2.7 g/dL (3.4-5.0); ALKALINE PHOSPHATASE 68 Units/L (46-116); ASPARTATE AMINO TRANSFERASE 15 Units/L (15-37); BLOOD UREA NITROGEN 29 mg/dL (7-18); CALCIUM 8.6 mg/dL (8.5-10.1); CARBON DIOXIDE 27.2 mmol/L (21-32); CHLORIDE 108 mmol/L (98-107); COR CA(FOR HYPOALB) 9.6 mg/dL (8.5-10.1); COR NA(FOR HYPERGLY) 146 mmol/L (136-145); CREATININE 0.74 mg/dL (0.55-1.02); GLUCOSE 150 mg/dL (65-99); POTASSIUM 4.5 mmol/L (3.5-5.1); SODIUM 145 mmol/L (136-145); TOTAL PROTEIN 5.9 g/dL (6.4-8.2); eGFR NON BLACK RACES > 60 (>60)
--- NOTE | 2023-05-10 07:27 | RAD ---
EXAM:Portable chestHISTORY:Shortness of breathCOMPARISON:05/09/2019FINDINGS:Ther e is a right-sided PICC line in good position. Heart is enlarged. No congestive heart failure is noted. Lungs are mildly hyperinflated but free of acute alveolar infiltrates. No pleural effusions are identified. Bony thorax is unremarkable.IMPRESSION:Mild hyperinflationNo acute infiltratesTHIS IS AN ELECTRONICALLY VERIFIED FINAL REPORT05/10/2023 7:23 AM - Electronically signed by Josesito Lucero MD
[2023-05-10] MEDS ORDERED: GLUCOPHAGE ONE (08:28)
[2023-05-10 10:27] VITALS: BP 147/68; TEMP 97.9; O2SAT 97
[2023-05-10 11:25] VITALS: PULSE 76; RESP 35
== END 2023-05-10 11:50 | disposition home health service (06) | DRG 194 ==
LOC: ICU 15:37 → ER 15:37 → ICU 21:24
PROVIDERS: ADMIT Internal Medicine; ATTEND Internal Medicine

== ENCOUNTER 2024-01-01 19:03 | Inpatient (IN) ==
[2024-01-01 19:28] VITALS: BMI 26.6
[2024-01-01 19:56] LABS: HEMATOCRIT 34.6 % (36.0-47.0); HEMOGLOBIN 11.5 g/dL (12.0-16.0); MEAN PLATELET VOLUME 7.2 fL (7.4-11.0); MONOCYTES # (AUTO) 0.4 x10^3/uL (0.3-0.8); NEUTROPHILS # (AUTO) 11.2 x10^3/uL (2.2-4.8); RED CELL DISTRIBUTION WIDTH 14.7 % (11.6-16.5); WHITE BLOOD COUNT 12.3 X10^3/uL (3.6-10.0)
[2024-01-01 19:59] LABS: BASOPHILS % (AUTO) 0.2 % (0.2-1.0); LYMPHOCYTES # (AUTO) 0.6 X10^3/uL (1.3-2.9); LYMPHOCYTES % (AUTO) 5.3 % (21.0-51.0); MEAN CORPUSCULAR HEMOGLOBIN 31.9 pg (27.0-34.0); MEAN CORPUSCULAR HGB CONC 33.3 g/dL (33.0-35.0); MEAN CORPUSCULAR VOLUME 95.7 fL (80.0-100.0); MONOCYTES % (AUTO) 3.1 % (0.0-13.0); NEUTROPHILS % (AUTO) 91.4 % (42.0-75.0); PLATELET COUNT 254 X10^3/uL (150.0-450.0); RED BLOOD COUNT 3.61 X10^6/uL (3.5-5.4)
[2024-01-01 20:06] LABS: ALANINE AMINOTRANSFERASE 54 Units/L (12-78); ALBUMIN 3.7 g/dL (3.4-5.0); ALKALINE PHOSPHATASE 84 Units/L (46-116); ASPARTATE AMINO TRANSFERASE 39 Units/L (15-37); BLOOD UREA NITROGEN 22 mg/dL (7-18); CALCIUM 9.7 mg/dL (8.5-10.1); CARBON DIOXIDE 27.6 mmol/L (21-32); CHLORIDE 97 mmol/L (98-107); COR NA(FOR HYPERGLY) 135 mmol/L (136-145); CREATININE 1.83 mg/dL (0.55-1.02); GLUCOSE 201 mg/dL (65-99); POTASSIUM 4.4 mmol/L (3.5-5.1); SODIUM 133 mmol/L (136-145); eGFR NON BLACK RACES 30 (>60)
[2024-01-01 20:13] LABS: APPEARANCE,URINE HAZY (CLEAR); BACTERIA,URINE 4+ /HPF (NEGATIVE); COLOR,URINE ORANGE (YELLOW); RBC,URINE 0-2 /HPF (0-3); SQUAMOUS EPITHELIAL CELL,UR RARE /HPF (NEGATIVE)
[2024-01-01 20:17] LABS: BAND NEUTROPHILS % 7 % (0-10); PLATELET MORPHOLOGY COMMENT NORMAL (NORMAL)
--- NOTE | 2024-01-01 20:36 | DR.FEVERAD ---
HPI Time seen Time Seen by Provider: 01/01/24 20:08 PCP Primary Care Physician: MARIEL BATRES HPI Comment HPI Comment: Pt accompanied by daughter .According to her patient lives alone and her daughter and other family members living nearby.Daughter called her multiple times this afternoon .Patient did not respond.Daughter went t to check herat home .Found her on the floor witout oxygen with oxygen sat running in the 80`s.EMS called and patient was brought to ER .Pt was more alert and complained of burning on urination for several days and fever Complaints/Symptoms Chief Complaint Doctor Comments: not feeling well Chief Complaint:: PT IN ED VIA STRETCHER PER [facility] WITH C/O FEVER, AMS AND POSSIBLE UTI. PT STATES SHE STARTED HAVING BURNING ON URINATION AND RUNNING FEVER YESTERDAY. STATES SHE HAD SOME CIPRO AT HOME AND STARTED TAKING IT. COVID-19 Coronavirus risk:travel/contact w/high risk person: No Has patient experienced Coronavirus symptoms: Yes Coronavirus symptoms experienced: Fever Nurses notes reviewed Nurses Notes Review: Yes Source History Provided: Patient and EMS Mode of Arrival Mode of Arrival: Stretcher Timing Onset of Chief Complaint: 12/31/23 Came on: Gradually PMH PMH Past Medical History: Yes Past Medical History: CHF, COPD, Depression, Diabetes, Dyslipidemia, GERD, Hypertension and Hypothyroidism Past Surgical History: Yes Surgical History: Appendectomy, , Cholecystectomy, Hysterectomy, Ortho Surgery and Tonsillectomy Past Surgical History Comment: NECK Family History History of Family Medical Conditions: Yes Family Medical History: Diabetes Mellitus, Cancer, [place], Coronary Artery Disease, Heart Failure, Sudden Cardiac and Hypertension Social History Does patient currently use any type of tobacco product: No Have you used tobacco products in the last 12 months: No Type of Tobacco Use: None Does any household member use tobacco: No Alcohol Use: None Do you use any recreational Drugs:: No Lives With: Alone Lives Where: Home Travel Risk Coronavirus risk:travel/contact w/high risk person: No Has patient experienced Coronavirus symptoms: Yes Coronavirus symptoms experienced: Fever Infectious screening In the last 2 months have you had wt loss of >10#?: NO Have you had fever, night sweats or hemotysis?: No Have you traveled outside the country in the last 6 months?: No Isolation: Standard ROS Review of Systems Constitutional: Fever, Malaise and Fatigue Eyes: No Symptoms Reported ENTM: No Symptoms Reported Respiratoy: Short of Breath Cardiovascular: No Symptoms Reported Gastrointestinal/Abdominal: No Symptoms Reported Genitourinary: Dysuria and Frequency Neurological: No Symptoms Reported Musculoskeletal: No Symptoms Reported Integumentary: No Symptoms Reported Hematologic/Lymphatic: No Symptoms Reported Endocrine: No Symptoms Reported PE Vital Signs Vitals: Vital Signs Temperature 99.6 F Temperature 101.7 F Temperature 98.1 F Temperature 99.9 F Pulse Rate 84 Pulse Rate 92 Pulse Rate 92 Pulse Rate 99 Pulse Rate 102 Pulse Rate 106 Pulse Rate 99 Pulse Rate 99 Pulse Rate 101 Pulse Rate 101 Pulse Rate 105 Pulse Rate 109 Pulse Rate 102 Pulse Rate 110 Pulse Rate 124 Pulse Rate 110 Pulse Rate 104 Pulse Rate 106 Pulse Rate 99 Pulse Rate 106 Pulse Rate 104 Pulse Rate 101 Pulse Rate 103 Pulse Rate 109 Pulse Rate 112 Pulse Rate 113 Pulse Rate 117 Pulse Rate 121 Pulse Rate 120 Pulse Rate 114 Pulse Rate 124 Respiratory Rate 24 Respiratory Rate 24 Blood Pressure 122/58 Blood Pressure 125/60 Blood Pressure 117/59 Blood Pressure 125/59 Blood Pressure 121/56 Blood Pressure 125/59 Blood Pressure 125/59 Blood Pressure 125/59 Blood Pressure 74/49 Blood Pressure 74/49 Blood Pressure 146/65 Blood Pressure 138/64 Blood Pressure 132/64 Blood Pressure 131/64 Blood Pressure 131/69 Blood Pressure 136/68 Blood Pressure 133/76 O2 Sat by Pulse Oximetry 95 O2 Sat by Pulse Oximetry 91 O2 Sat by Pulse Oximetry 94 O2 Sat by Pulse Oximetry 89 O2 Sat by Pulse Oximetry 80 O2 Sat by Pulse Oximetry 93 O2 Sat by Pulse Oximetry 92 O2 Sat by Pulse Oximetry 92 O2 Sat by Pulse Oximetry 91 O2 Sat by Pulse Oximetry 93 O2 Sat by Pulse Oximetry 91 O2 Sat by Pulse Oximetry 93 O2 Sat by Pulse Oximetry 94 O2 Sat by Pulse Oximetry 92 O2 Sat by Pulse Oximetry 93 O2 Sat by Pulse Oximetry 89 O2 Sat by Pulse Oximetry 91 O2 Sat by Pulse Oximetry 83 O2 Sat by Pulse Oximetry 96 O2 Sat by Pulse Oximetry 95 O2 Sat by Pulse Oximetry 94 O2 Sat by Pulse Oximetry 95 O2 Sat by Pulse Oximetry 96 O2 Sat by Pulse Oximetry 94 O2 Sat by Pulse Oximetry 94 O2 Sat by Pulse Oximetry 91 O2 Sat by Pulse Oximetry 93 O2 Sat by Pulse Oximetry 93 General Limitations: No Limitations General Appearance: Alert, In No Apparent Distress and Anxious Head Head Exam: Normal Inspection, Atraumatic and Normocephalic Eyes Eye exam: PERRL ENT ENT Exam: Mucous Membranes Dry External Ear Exam: Normal External Inspection TM/Canal Exam: Bilateral: Normal Neck Neck Exam: Normal Inspection and Full ROM Respiratory Respiratory Exam: Normal Lung Sounds Bilat Respiratory Exam: Bilateral: Clear to Auscultation Cardiovascular Cardiovascular Exam: Tachycardia, +S1 and +S2 Abdominal Exam Abdominal Exam: Normal Bowel Sounds, Soft and Tenderness Abdominal Tenderness: Suprapubic and Other (CVA tenderns ) Neurologic Neurological Exam: Alert Skin Skin Exam: Normal Color MDM Additional Information Findings: hx of copd ,UTI ,fever ,sepsis,dehydration hypoxia Differential Diagnosis Differential Diagnosis: Dehydration and Hypoxemia COURSE Treatment Treatment: labs ,fluids CT scan,Chest Xray ROR Labs Reviewed Laboratory Results Reviewed?: Yes 01/01/24 19:43 01/01/24 22:21 Laboratory: WBC 12.3 X10^3/uL (3.6-10.0) H 01/01/24 19:43 RBC 3.61 X10^6/uL (3.5-5.4) 01/01/24 19:43 Hgb 11.5 g/dL (12.0-16.0) L 01/01/24 19:43 Hct 34.6 % (36.0-47.0) L 01/01/24 19:43 MCV 95.7 fL (80.0-100.0) 01/01/24 19:43 MCH 31.9 pg (27.0-34.0) 01/01/24 19:43 MCHC 33.3 g/dL (33.0-35.0) 01/01/24 19:43 RDW 14.7 % (11.6-16.5) 01/01/24 19:43 Plt Count 254 X10^3/uL (150.0-450.0) 01/01/24 19:43 Plt Count Comment Adequate (ADEQUATE) 01/01/24 19:43 MPV 7.2 fL (7.4-11.0) L 01/01/24 19:43 Neut % (Auto) 91.4 % (42.0-75.0) H 01/01/24 19:43 Lymph % (Auto) 5.3 % (21.0-51.0) L 01/01/24 19:43 Bureau % (Auto) 3.1 % (0.0-13.0) 01/01/24 19:43 Eos % (Auto) 0.0 % (0.9-2.9) L 01/01/24 19:43 Baso % (Auto) 0.2 % (0.2-1.0) 01/01/24 19:43 Neut # (Auto) 11.2 x10^3/uL (2.2-4.8) H 01/01/24 19:43 Lymph # (Auto) 0.6 X10^3/uL (1.3-2.9) L 01/01/24 19:43 Bureau # (Auto) 0.4 x10^3/uL (0.3-0.8) 01/01/24 19:43 Eos # (Auto) 0.0 x10^3/uL (0.0-0.2) 01/01/24 19:43 Baso # (Auto) 0.0 X10^3/uL (0.0-0.1) 01/01/24 19:43 Absolute Nucleated RBC 0.1 /100WBC 01/01/24 19:43 Total Counted 100 01/01/24 19:43 Neutrophils % (Manual) 83 % (39-76) H 01/01/24 19:43 Band Neutrophils % 7 % (0-10) 01/01/24 19:43 Lymphocytes % (Manual) 5 % (13-43) L 01/01/24 19:43 Monocytes % (Manual) 5 % (4-9) 01/01/24 19:43 Plt Morphology Comment Normal (NORMAL) 01/01/24 19:43 RBC Morphology Normal (NORMAL) 01/01/24 19:43 D-Dimer 1.64 ug/ml (0.0-0.57) H 01/01/24 19:43 Sodium 132 mmol/L (136-145) L 01/01/24 22:21 Corrected Sodium 133 mmol/L (136-145) L 01/01/24 22:21 Potassium 4.0 mmol/L (3.5-5.1) 01/01/24 22:21 Chloride 98 mmol/L (98-107) 01/01/24 22:21 Carbon Dioxide 24.3 mmol/L (21-32) 01/01/24 22:21 BUN 20 mg/dL (7-18) H 01/01/24 22:21 Creatinine 1.62 mg/dL (0.55-1.02) H 01/01/24 22:21 Est GFR (MDRD) Af Amer 41 (>60) L 01/01/24 22:21 Est GFR (MDRD) Non-Af 34 (>60) L 01/01/24 22:21 Glucose 154 mg/dL (65-99) H 01/01/24 22:21 Lactic Acid 1.3 mmol/L (0.4-2.0) 01/01/24 19:43 Calcium 8.7 mg/dL (8.5-10.1) 01/01/24 22:21 Corrected Calcium TNP 01/01/24 19:43 Total Bilirubin 0.50 mg/dL (0.2-1.0) 01/01/24 19:43 AST 39 Units/L (15-37) H 01/01/24 19:43 ALT 54 Units/L (12-78) 01/01/24 19:43 Alkaline Phosphatase 84 Units/L (46-116) 01/01/24 19:43 B-Natriuretic Peptide 28.7 pg/mL (0-79) 01/01/24 19:43 Total Protein 8.0 g/dL (6.4-8.2) 01/01/24 19:43 Albumin 3.7 g/dL (3.4-5.0) 01/01/24 19:43 Globulin 4.3 g/dL (2.5-4.5) 01/01/24 19:43 Albumin/Globulin Ratio 0.9 Ratio (1.1-2.1) L 01/01/24 19:43 Lipase 24 Units/L (16-77) 01/01/24 22:21 Specimen Type Clean catch urine 01/01/24 19:43 Urine Color [place] (YELLOW) 01/01/24 19:43 Urine Appearance Hazy (CLEAR) 01/01/24 19:43 Urine pH Cancelled 01/01/24 19:43 Ur Specific [place] Cancelled 01/01/24 19:43 Urine Protein Cancelled 01/01/24 19:43 Urine Glucose (UA) Cancelled 01/01/24 19:43 Urine Ketones Cancelled 01/01/24 19:43 Urine Blood Cancelled 01/01/24 19:43 Urine Nitrite Cancelled 01/01/24 19:43 Urine Bilirubin Cancelled 01/01/24 19:43 Urine Urobilinogen Cancelled 01/01/24 19:43 Ur Leukocyte Esterase Cancelled 01/01/24 19:43 Urine RBC 0-2 /HPF (0-3) 01/01/24 19:43 Urine WBC Tntc /HPF (0-5) A 01/01/24 19:43 Ur Squamous Epith Cells Rare /HPF (NEGATIVE) 01/01/24 19:43 Urine Bacteria 4+ /HPF (NEGATIVE) 01/01/24 19:43 Ur Culture Indicated? Yes/culture set up 01/01/24 19:43 SARS-CoV-2 (PCR) Negative (NEGATIVE) 01/01/24 19:43 Influenza Type A (PCR) Negative (NEGATIVE) 01/01/24 19:43 Influenza Type B (PCR) Negative (NEGATIVE) 01/01/24 19:43 RSV (PCR) Negative (NEGATIVE) 01/01/24 19:43 Other Results Comments: D-dimer elevated ,Ct abdomen without contrast ? pyelonephritis Opioid Opioid Risk Tool Age (Darnell box if 16-45): No History of Preadolescent Sexual Abuse: No Total: 0 Total Score Risk Category: Low Risk Copyright: Gordon SORIANO predicting aberrant behaviors Discharge Plan Diagnosis Discharge Problem: Pyelonephritis, Acute dehydration, Leucocytosis, COPD (chronic obstructive pulmonary disease), Dependence on supplemental oxygen Discharge Plan Patient Disposition: HOME, SELF-CARE Condition: Stable Prescriptions: Continued gabapentin 600 mg tablet 600 mg PO TID metoprolol succinate 50 mg tablet extended release 24 hr 50 mg PO QDAY lisinopril 20 mg tablet 20 mg PO QDAY isosorbide mononitrate 30 mg tablet extended release 24 hr 30 mg PO QDAY PRN famotidine 20 mg tablet 20 mg PO QDAY amlodipine 10 mg tablet 10 mg PO QDAY glimepiride 4 mg tablet 4 mg PO QDAY levothyroxine 150 mcg tablet 150 mcg PO QDAY hydroxyzine HCl 25 mg tablet 25 mg PO BID spironolactone 50 mg tablet 50 mg PO QDAY duloxetine 60 mg capsule,delayed release(DR/EC) 60 mg PO QDAY metformin 500 mg Tablet 500 mg PO DAILY Discontinued tizanidine 4 mg tablet 4 mg PO BID PRN clonazepam 0.5 mg tablet 0.5 mg PO QDAY PRN (Reason: panic attack) hydrocodone-acetaminophen 7.5-325 mg tablet 1 tab PO TID PRN ferrous sulfate [FeroSul] 325 mg (65 mg iron) tablet 325 mg PO QDAY nitroglycerin 0.4 mg tablet, sublingual 0.4 mg sublingual PRN Health Concerns: Post Hospitalization: new medications and changes needed to prevent readmission or further decline. Pt educated and given instructions on all concerns. Plan of Treatment: Continue with present treatment and follow up plan. Pt is to keep follow up appointment as instructed and take medications as ordered. Orders to Discharge Patient Discharge Orders: Discharge (Routine); Ordered 01/02/24 Ordered By: Steve Hedrick Transfer (Routine); Ordered 01/02/24 Ordered By: Steve Hedrick Follow ups/Referrals Follow ups/Referrals: MARIEL BATRES [Primary Care Provider] - 3 days Instructions Stand Alone Forms: Post Hospital Follow Up Care ADDITIONAL NOTES Additional Notes Additional Notes: fever dysuria ,abdominal pain with CVA tenderness elevated wbc ,urine pos wbc and bacteria given zosyn dehydration IV fluids COPD on ventimask 35% oxygen over 98% spoke with Dr David .agreed to have patient admitted
[2024-01-01] MEDS ORDERED: NS 1,000 ML IV 1,000 ML ONE (20:54)
[2024-01-01] MEDS: NS 1,000 ML IV 1,000 ML IV ONE ×2 (21:03→22:57)
[2024-01-01 22:34] LABS: CALCIUM 8.7 mg/dL (8.5-10.1); CARBON DIOXIDE 24.3 mmol/L (21-32); CREATININE 1.62 mg/dL (0.55-1.02)
[2024-01-01] MEDS ORDERED: TYLENOL 500 MG TAB EXTRA STRENGTH PO ONE (22:44)
[2024-01-01] MEDS: TYLENOL 500 MG TAB EXTRA STRENGTH PO ONE (22:45)
[2024-01-01] MEDS ORDERED: DUONEB 0.5 MG/3 MG (3 mL) NEB ONE (23:13)
[2024-01-01] MEDS: DUONEB 0.5 MG/3 MG (3 mL) NEB ONE (23:17)
[2024-01-02] MEDS: ZOSYN VIAL 3.375 GRAMS 3.375 G in NS 100 ML IV 100 ML IV SCH ×2 (00:04→06:11)
--- NOTE | 2024-01-02 01:10 | CT ---
PROCEDURE: CT Abdomen and Pelvis without IV Contrast. HISTORY: C/O FEVER, AMS AND POSSIBLE UTI. SHE STARTED HAVING BURNING ON URINATION AND RUNNING FEVER Y ESTERDAY. STATES SHE HAD SOME CIPRO AT HOME AND STARTED TAKING IT.; . TECHNIQUE: Axial images were performed through the abdomen and pelvis without the administration of I V contrast with multiplanar reformations . Oral contrast was notadministered . Dose reduction techniq ues including Automated Exposure Control (AEC) and adjustment of mA and kV were utilized .. COMPARISON: None. TECHNICAL QUALITY: Satisfactory. FINDINGS: Linear scar versus discoid atelectasis lung bases. Liver, spleen, adrenals, and pancreas show no abnormality. Minimal hydroureteronephrosis on the left could be related to recently passed stone, urinary tract in fection, or sloughed papilla. No urinary tract stones identified on this study. Previous cholecystectomy. No ascites or pneumoperitoneum. Mild atherosclerosis aorta. No lymphadenopathy. No bowel obstruction or inflammation and normal appendix. Minimal colonic diverticulosis. Pelvis shows no masses or free fluid with unremarkable reproductive organs and urinary bladder. No acute bony abnormality. IMPRESSION: 1. Mild hydroureteronephrosis on the left could be related to recently passed stone, sloughed papilla , or urinary tract infection. 2. Mild colonic diverticulosis. 3. No other significant abnormality identified. THIS IS AN ELECTRONICALLY VERIFIED FINAL REPORT 01/02/2024 1:06 AM - Electronically signed by Jc Mondragon MD
[2024-01-02] MEDS ORDERED: IMDUR PO PRN (02:02)
[2024-01-02] MEDS ORDERED: NS 250 ML IV 25 ML IV PRN (02:02)
[2024-01-02 02:26] LABS: ABG BASE EXCESS -3.4 mmol/L (-2.0-2.0); ABG HCO3 19.9 mmol/L (22-26)
[2024-01-02 02:27] LABS: ABG ALLEN TEST POS
--- NOTE | 2024-01-02 03:20 | RAD ---
PROCEDURE: Chest X-ray 1 View.HISTORY: C/O FEVER, AMS AND POSSIBLE UTI. SHE STARTED HAVING BURNING ON URINATION AND RUNNING FEVER YESTERDAY. STATES SHE HAD SOME CIPRO AT HOME AND STARTED TAKING IT.; .TECHNIQUE: AP view.COMPARISON: June 26 this year.TECHNICAL QUALITY: Satisfactory.FINDINGS:Normal size heart.Mediastinum and hilar regions show no masses or lymphadenopathy.Normal central vascularity.No pulmonary consolidation, masses, pleural fluid, or pneumothorax.No acute bony abnormality.IMPRESSION:No evidence of active cardiopulmonary disease.THIS IS AN ELECTRONICALLY VERIFIED FINAL [id number]/02/2024 3:17 AM - Electronically signed by Jc Mondragon MD
[2024-01-02 05:22] LABS: BASOPHILS % (AUTO) 0.2 % (0.2-1.0); HEMATOCRIT 29.9 % (36.0-47.0); LYMPHOCYTES # (AUTO) 0.9 X10^3/uL (1.3-2.9); MEAN CORPUSCULAR HGB CONC 33.4 g/dL (33.0-35.0); MEAN CORPUSCULAR VOLUME 95.5 fL (80.0-100.0); MEAN PLATELET VOLUME 7.8 fL (7.4-11.0); MONOCYTES # (AUTO) 0.5 x10^3/uL (0.3-0.8); MONOCYTES % (AUTO) 4.1 % (0.0-13.0); NEUTROPHILS # (AUTO) 9.9 x10^3/uL (2.2-4.8); NEUTROPHILS % (AUTO) 87.7 % (42.0-75.0); PLATELET COUNT 198 X10^3/uL (150.0-450.0); RED BLOOD COUNT 3.13 X10^6/uL (3.5-5.4); RED CELL DISTRIBUTION WIDTH 14.6 % (11.6-16.5); WHITE BLOOD COUNT 11.3 X10^3/uL (3.6-10.0)
[2024-01-02 05:36] LABS: CALCIUM 8.6 mg/dL (8.5-10.1); CARBON DIOXIDE 23.1 mmol/L (21-32); COR CA(FOR HYPOALB) 9.4 mg/dL (8.5-10.1); CREATININE 1.42 mg/dL (0.55-1.02); POTASSIUM 3.9 mmol/L (3.5-5.1); TOTAL PROTEIN 6.9 g/dL (6.4-8.2)
[2024-01-02] MEDS: NS 250 ML IV 25 ML IV PRN (06:12)
[2024-01-02] MEDS: NEURONTIN TAB 600 MG PO SCH (06:12)
[2024-01-02] MEDS ORDERED: GLUCOPHAGE ONE (08:04)
[2024-01-02] MEDS ORDERED: ZESTRIL TAB 20 MG ONE (08:04)
[2024-01-02] MEDS: ALDACTONE TAB 25 MG PO SCH (08:06)
[2024-01-02] MEDS: GLUCOPHAGE PO SCH (08:06)
[2024-01-02] MEDS: TOPROL XL PO SCH (08:07)
[2024-01-02] MEDS: ZESTRIL TAB 20 MG PO SCH (08:07)
[2024-01-02] MEDS: CYMBALTA PO SCH (08:07)
[2024-01-02] MEDS: SYNTHROID 150 mcg TAB PO SCH (08:07)
[2024-01-02] MEDS: NORVASC TAB 10 MG PO SCH (08:08)
[2024-01-02] MEDS: AMARYL TAB 4 MG PO SCH (08:08)
[2024-01-02] MEDS: DUONEB 0.5 MG/3 MG (3 mL) NEB PRN (08:41)
--- NOTE | 2024-01-02 11:30 | RAD ---
EXAM:CHEST, 1 VIEWHISTORY:acute pyelonephritis, dehydration, MD order;COMPARISON:Prior study or studies were utilized for comparison during interpretation with the most relevant dated todayTECHNIQUE:CHEST, 1 VIEWFINDINGS:Chest:Lines and tubes: NoneMediastinum: Borderline cardiomegaly.Pulmonary vessels: There is pulmonary vascular congestion.Lung gamez: No suspicious airspace opacity.Pleura: No effusion. No pneumothorax.Bones and soft tissues: No acute osseous or soft tissue abnormality.IMPRESSION:1. Findings suggest heart failure with mild pulmonary edemaTHIS IS AN ELECTRONICALLY VERIFIED FINAL [id number]/02/2024 11:27 AM - Electronically signed by Dk Pepper MD
--- NOTE | 2024-01-02 12:00 | CT ---
EXAMINATION:CTA, CHESTHISTORY:acute pyelonephritis, dehydration, MD orders; .COMPARISON:None.TECHNIQUE:Routine axial imaging of the chest was performed. CT angiography of the pulmonary arteries was performed. Maximum intensity projection images were obtained along with volume rendered images on a workstation.. The above CT scan was done with automated exposure control and the mA and kV was adjusted to obtain quality images according to patient size.FINDINGS:Lungs: Study is degraded by respiratory motion. Scattered patchy ground-glass opacities are seen in the lungs. There is some bronchial thickening and atelectasis in the lung bases. No alveolar infiltrates interstitial changes or persistent pulmonary nodules noted.Central Airways: No obstructing endobronchial lesionsPleura: No pleural effusion or pneumothoraxThoracic Aorta: Ectasia. Atherosclerotic calcification.Main Pulmonary Trunk: Upper limits of normal at 2.[address] angiography evidence for acute pulmonary embolus. Respiratory motion limits evaluation of segmental and subsegmental branches.Lymph Nodes: No pathologic hilar, axillary or mediastinal adenopathyHeart/Pericardium: Normal heart size. No significant pericardial effusion. Coronary artery calcification in the LADLiver: No acute findings.GB/Biliary: Cholecystectomy. No dilated ductsSpleen: Normal size and densityPancreas: No acute findings as visualizedAdrenal Glands: No massKidneys no hydronephrosis. Limited visualizationAbdominal Aorta: Tapers normally. Atherosclerotic calcification.Retroperitoneum: No pathologically enlarged lymph nodes.Bowel/Peritoneal Cavity: No acute findings as visualizedOsseous Structures: Degenerative changes in the thoracolumbar spine. Previous cervical fusion. No bony lesions noted.Other: NoneIMPRESSION:Scattered ground-glass opacities in the lungs. Atelectasis in the lung bases with bronchial thickening.This may represent infectious or inflammatory process. Follow-up to resolution recommended.No CT angiography evidence for acute pulmonary embolus or aortic dissection. Respiratory motion limits evaluation of segmental and subsegmental branches.The above CT scan was done with automated exposure control and the mA and kV was adjusted to obtain quality images according to patient sizeTHIS IS AN ELECTRONICALLY VERIFIED FINAL [id number]/02/2024 11:57 AM - Electronically signed by Vinay Bran MD
[2024-01-02] MEDS ORDERED: NS 1,000 ML IV 1,000 ML ONE (15:42)
[2024-01-02] MEDS ORDERED: NS 1,000 ML IV 1,000 ML IV SCH (16:00)
[2024-01-02] MEDS: TYLENOL 325 MG TAB PO ONE (16:51)
[2024-01-02] MEDS: LASIX IVP ONE (18:12)
[2024-01-02] MEDS: INVanz INJ 1 GRAM VIAL 1 G in NS 100 ML IV 100 ML IV SCH (18:13)
--- NOTE | 2024-01-02 18:26 | DR.H&P ---
H&P History & Physical for Day of: H&P Date: 01/02/24 Chief Complaint Chief Complaint: sob, weakness, fever and dysuria History of Present Illness History of Present Illness: Pt is a 63 WF, ER admission, accompanied by daughter. According to her patient lives alone and her daughter and other family members living nearby called her multiple times this afternoon .Patient did not respond. Daughter went to check her at home and found her on the floor without oxygen. Patient's oxygen sat running in the 80`s. EMS called and patient was brought to ER. Pt was more alert and complained of burning on urination for several days and fever. Pt has a PMH of DM, HTN, CHF, OA and COPD. Pt admitted for treatment and evaluation of acute illness. Past Medical History Past Medical History: CHF, COPD, Depression, Diabetes, Dyslipidemia, GERD, Hypertension and Hypothyroidism Past Surgical History Surgical History: Appendectomy, , Hysterectomy, Ortho Surgery and Tonsillectomy Family History Family Medical History: Diabetes Mellitus, Cancer, [place], Coronary Artery Disease, Heart Failure, Sudden Cardiac and Hypertension Social History Does patient currently use any type of tobacco product: No Have you used tobacco products in the last 12 months: No Type of Tobacco Use: None Does any household member use tobacco: No Alcohol Use: None Drug Use: None Medications Home Medications: Home Medications Medication Instructions Recorded Confirmed Type metformin 500 mg tablet 500 mg PO BIDWMEAL 05/02/23 01/02/24 History amlodipine 10 mg tablet 10 mg PO QDAY 01/01/24 01/01/24 History duloxetine 60 mg capsule,delayed 60 mg PO QDAY 01/01/24 01/01/24 History release famotidine 20 mg tablet 20 mg PO QDAY 01/01/24 01/01/24 History gabapentin 600 mg tablet 600 mg PO TID 01/01/24 01/01/24 History glimepiride 4 mg tablet 4 mg PO QDAY 01/01/24 01/01/24 History hydroxyzine HCl 25 mg tablet 25 mg PO BID 01/01/24 01/01/24 History isosorbide mononitrate 30 mg 30 mg PO QDAY PRN 01/01/24 01/01/24 History tablet,extended release 24 hr levothyroxine 150 mcg tablet 150 mcg PO QDAY 01/01/24 01/01/24 History lisinopril 20 mg tablet 20 mg PO QDAY 01/01/24 01/01/24 History metoprolol succinate 50 mg 50 mg PO QDAY 01/01/24 01/01/24 History tablet,extended release 24 hr spironolactone 50 mg tablet 50 mg PO QDAY 01/01/24 01/01/24 History albuterol sulfate 90 mcg/actuation 2 puff inhalation Q4-6H PRN 01/02/24 01/02/24 History aerosol inhaler aspirin 81 mg tablet,delayed 81 mg PO QDAY 01/02/24 01/02/24 History release atorvastatin 20 mg tablet 20 mg PO QHS 01/02/24 01/02/24 History biotin 10,000 mcg chewable tablet 10,000 mcg PO DAILY 01/02/24 01/02/24 History dvhitbjgxt-guqsbbpdbpnyo-vqewwyaw 1 tab PO Q4H 01/02/24 01/02/24 History 50 mg-325 mg-40 mg tablet duloxetine 30 mg capsule,delayed 30 mg PO DAILY 01/02/24 01/02/24 History release ezetimibe 10 mg tablet 10 mg PO DAILY 01/02/24 01/02/24 History famotidine 20 mg tablet 20 mg PO BID 01/02/24 01/02/24 History fluticasone fur. 200 mcg-umeclid 1 inh inhalation DAILY 01/02/24 01/02/24 History 62.5 mcg-vilant 25 mcg inhalat.powder (Trelegy Ellipta) folic acid 1 mg tablet 1 mg PO 6XW 01/02/24 01/02/24 History hydrocodone 7.5 mg-acetaminophen 1 tab PO TID PRN 01/02/24 01/02/24 History 325 mg tablet methocarbamol 750 mg tablet 750 mg PO TID PRN 01/02/24 01/02/24 History nitroglycerin 0.4 mg sublingual 0.4 mg sublingual Q5-15M PRN 01/02/24 01/02/24 History tablet oxybutynin chloride 5 mg tablet 5 mg PO DAILY 01/02/24 01/02/24 History pantoprazole 40 mg tablet,delayed 80 mg PO QDAY 01/02/24 01/02/24 History release pramipexole 0.5 mg tablet 0.5 mg PO TID 01/02/24 01/02/24 History promethazine 25 mg tablet 25 mg PO DAILY PRN 01/02/24 01/02/24 History tizanidine 4 mg tablet 4 mg PO BID PRN 01/02/24 01/02/24 History Allergies Allergies Allergy/AdvReac Type Severity Reaction Status Date / Time tetracycline Allergy Unknown Verified 01/01/24 19:14 Labs 01/02/24 04:35 01/02/24 04:35 Labs: 01/01/24 22:46 Blood Blood Culture Gram Stain - Final 01/01/24 19:43 Urine,Clean Catch Urine Culture - Preliminary Laboratory WBC 11.3 X10^3/uL (3.6-10.0) H 01/02/24 04:35 RBC 3.13 X10^6/uL (3.5-5.4) L 01/02/24 04:35 Hgb 10.0 g/dL (12.0-16.0) L 01/02/24 04:35 Hct 29.9 % (36.0-47.0) L 01/02/24 04:35 MCV 95.5 fL (80.0-100.0) 01/02/24 04:35 MCH 32.0 pg (27.0-34.0) 01/02/24 04:35 MCHC 33.4 g/dL (33.0-35.0) 01/02/24 04:35 RDW 14.6 % (11.6-16.5) 01/02/24 04:35 Plt Count 198 X10^3/uL (150.0-450.0) 01/02/24 04:35 Plt Count Comment Adequate (ADEQUATE) 01/01/24 19:43 MPV 7.8 fL (7.4-11.0) 01/02/24 04:35 Neut % (Auto) 87.7 % (42.0-75.0) H 01/02/24 04:35 Lymph % (Auto) 8.0 % (21.0-51.0) L 01/02/24 04:35 [place] % (Auto) 4.1 % (0.0-13.0) 01/02/24 04:35 Eos % (Auto) 0.0 % (0.9-2.9) L 01/02/24 04:35 Baso % (Auto) 0.2 % (0.2-1.0) 01/02/24 04:35 Neut # (Auto) 9.9 x10^3/uL (2.2-4.8) H 01/02/24 04:35 Lymph # (Auto) 0.9 X10^3/uL (1.3-2.9) L 01/02/24 04:35 [place] # (Auto) 0.5 x10^3/uL (0.3-0.8) 01/02/24 04:35 Eos # (Auto) 0.0 x10^3/uL (0.0-0.2) 01/02/24 04:35 Baso # (Auto) 0.0 X10^3/uL (0.0-0.1) 01/02/24 04:35 Absolute Nucleated RBC 0.0 /100WBC 01/02/24 04:35 Total Counted 100 01/01/24 19:43 Neutrophils % (Manual) 83 % (39-76) H 01/01/24 19:43 Band Neutrophils % 7 % (0-10) 01/01/24 19:43 Lymphocytes % (Manual) 5 % (13-43) L 01/01/24 19:43 Monocytes % (Manual) 5 % (4-9) 01/01/24 19:43 Plt Morphology Comment Normal (NORMAL) 01/01/24 19:43 RBC Morphology Normal (NORMAL) 01/01/24 19:43 D-Dimer 1.64 ug/ml (0.0-0.57) H 01/01/24 19:43 Sample Site Lr 01/02/24 01:47 ABG pH 7.430 (7.35-7.45) 01/02/24 01:47 ABG pCO2 30.0 mmHg (35.0-45.0) L 01/02/24 01:47 ABG pO2 62.0 mmHg (80.0-100.0) L 01/02/24 01:47 ABG HCO3 19.9 mmol/L (22-26) L 01/02/24 01:47 ABG O2 Saturation 92.0 % (90-100) 01/02/24 01:47 ABG Base Excess -3.4 mmol/L (-2.0-2.0) L 01/02/24 01:47 Jaime Test Pos 01/02/24 01:47 A-a Gradient 150.0 mmHg 01/02/24 01:47 FiO2 35.0 01/02/24 01:47 Blood Gas Comments Asaf well sw 01/02/24 01:47 Sodium 132 mmol/L (136-145) L 01/02/24 04:35 Corrected Sodium 134 mmol/L (136-145) L 01/02/24 04:35 Potassium 3.9 mmol/L (3.5-5.1) 01/02/24 04:35 Chloride 99 mmol/L (98-107) 01/02/24 04:35 Carbon Dioxide 23.1 mmol/L (21-32) 01/02/24 04:35 BUN 19 mg/dL (7-18) H 01/02/24 04:35 Creatinine 1.42 mg/dL (0.55-1.02) H 01/02/24 04:35 Est GFR (MDRD) Af Amer 48 (>60) L 01/02/24 04:35 Est GFR (MDRD) Non-Af 40 (>60) L 01/02/24 04:35 Glucose 195 mg/dL (65-99) H 01/02/24 04:35 POC Glucose (mg/dL) 87 mg/dL (65-99) 01/02/24 16:54 Lactic Acid 1.3 mmol/L (0.4-2.0) 01/01/24 19:43 Calcium 8.6 mg/dL (8.5-10.1) 01/02/24 04:35 Corrected Calcium 9.4 mg/dL (8.5-10.1) 01/02/24 04:35 Total Bilirubin 0.60 mg/dL (0.2-1.0) 01/02/24 04:35 AST 40 Units/L (15-37) H 01/02/24 04:35 ALT 43 Units/L (12-78) 01/02/24 04:35 Alkaline Phosphatase 69 Units/L (46-116) 01/02/24 04:35 B-Natriuretic Peptide 28.7 pg/mL (0-79) 01/01/24 19:43 Total Protein 6.9 g/dL (6.4-8.2) 01/02/24 04:35 Albumin 3.0 g/dL (3.4-5.0) L 01/02/24 04:35 Globulin 3.9 g/dL (2.5-4.5) 01/02/24 04:35 Albumin/Globulin Ratio 0.8 Ratio (1.1-2.1) L 01/02/24 04:35 Lipase 24 Units/L (16-77) 01/01/24 22:21 Specimen Type Clean catch urine 01/01/24 19:43 Urine Color [place] (YELLOW) 01/01/24 19:43 Urine Appearance Hazy (CLEAR) 01/01/24 19:43 Urine pH Cancelled 01/01/24 19:43 Ur Specific [place] Cancelled 01/01/24 19:43 Urine Protein Cancelled 01/01/24 19:43 Urine Glucose (UA) Cancelled 01/01/24 19:43 Urine Ketones Cancelled 01/01/24 19:43 Urine Blood Cancelled 01/01/24 19:43 Urine Nitrite Cancelled 01/01/24 19:43 Urine Bilirubin Cancelled 01/01/24 19:43 Urine Urobilinogen Cancelled 01/01/24 19:43 Ur Leukocyte Esterase Cancelled 01/01/24 19:43 Urine RBC 0-2 /HPF (0-3) 01/01/24 19:43 Urine WBC Tntc /HPF (0-5) A 01/01/24 19:43 Ur Squamous Epith Cells Rare /HPF (NEGATIVE) 01/01/24 19:43 Urine Bacteria 4+ /HPF (NEGATIVE) 01/01/24 19:43 Ur Culture Indicated? Yes/culture set up 01/01/24 19:43 SARS-CoV-2 (PCR) Negative (NEGATIVE) 01/02/24 16:23 Influenza Type A (PCR) Negative (NEGATIVE) 01/02/24 16:23 Influenza Type B (PCR) Negative (NEGATIVE) 01/02/24 16:23 RSV (PCR) Negative (NEGATIVE) 01/02/24 16:23 Review of Systems Constitutional: Fever, Chills, Weakness and Malaise Eyes: No Symptoms Reported ENT: No Symptoms Reported Respiratory: Shortness of Breath Cardiovascular: Palpitations Gastrointestinal: No Symptoms Reported Genitourinary: Dysuria Musculoskeletal: Back Pain Skin: No Symptoms Reported Neurological: Weakness Physical Exam Vital Signs: Vital Signs Temperature 102.6 F Temperature 103.1 F Temperature 102.9 F Temperature 99.0 F Pulse Rate [Left Brachial] 93 Pulse Rate [Left Brachial] 103 Respiratory Rate 22 Respiratory Rate 19 Respiratory Rate 21 Respiratory Rate 20 Blood Pressure [Right Arm] 113/56 Blood Pressure [Right Arm] 127/60 O2 Sat by Pulse Oximetry 91 O2 Sat by Pulse Oximetry 90 Oriented: Normal Eyes: Normal Ear: Normal Nose: Normal Throat: Dry Respiratory: Diminished Throughout Cardiovascular: Tachycardia : Dysuria Auscultation: Bowel Sounds: Normal Palpation: Normal Tenderness: Suprapubic and Mild Musculoskeletal: Back:Lumbar Mood Description: Anxious Speech Pattern: Clear and Appropriate Assessment/Plan (1) Pyelonephritis: Status: Acute Plan: ADMIT, BLOOD CULTURES ON ADMISSION, UC ON ADMISSION COVID/FLU SWAB ON ADMISSION IV HYDRATION, BS CONTROL I&OS DDIMER ON ADMISSION, SET UP CTA ABG ON ADMISSION CXR ON ADMISSION, VERIFY HOME MEDICATIONS (2) UTI (urinary tract infection): Status: Acute (3) Hypoxia: Status: Acute (4) Hypertension: Qualifiers: Hypertension type: primary hypertension Qualified Code(s): I10 - Essential (primary) hypertension Status: Chronic (5) Diabetes 1.5, managed as type 2: Status: Chronic (6) CHF (congestive heart failure): Status: Acute
[2024-01-02 20:42] LABS: BILIRUBIN,URINE NEGATIVE (NEGATIVE); BLOOD/HEMOGLOBIN,URINE 2+ (NEGATIVE); GLUCOSE, URINE NEGATIVE (NEGATIVE); KETONES,URINE NEGATIVE (NEGATIVE); LEUKOCYTE ESTERASE ,URINE 2+ (NEGATIVE); NITRITES,URINE NEGATIVE (NEGATIVE); PROTEIN,URINE 2+ (NEGATIVE); UROBILINOGEN,URINE NORMAL (NORMAL)
[2024-01-02 20:43] LABS: APPEARANCE,URINE SLIGHTLY HAZY (CLEAR); COLOR,URINE YELLOW (YELLOW)
[2024-01-02 20:54] LABS: BACTERIA,URINE 2+ /HPF (NEGATIVE); GRANULAR CASTS,URINE FEW /LPF (NEGATIVE); RBC,URINE 0-2 /HPF (0-3); SQUAMOUS EPITHELIAL CELL,UR RARE /HPF (NEGATIVE)
[2024-01-02] MEDS: SNACK - Diabetic Appropriate PO SCH (21:49)
[2024-01-02] MEDS: FIORICET TAB PO PRN (21:59)
[2024-01-03 05:38] LABS: HEMOGLOBIN 8.9 g/dL (12.0-16.0); MEAN CORPUSCULAR HEMOGLOBIN 31.8 pg (27.0-34.0); MEAN CORPUSCULAR HGB CONC 33.6 g/dL (33.0-35.0); RED BLOOD COUNT 2.79 X10^6/uL (3.5-5.4); WHITE BLOOD COUNT 13.4 X10^3/uL (3.6-10.0)
[2024-01-03 05:41] LABS: BASOPHILS % (AUTO) 0.1 % (0.2-1.0); HEMATOCRIT 26.4 % (36.0-47.0); LYMPHOCYTES # (AUTO) 1.1 X10^3/uL (1.3-2.9); MEAN CORPUSCULAR VOLUME 94.5 fL (80.0-100.0); MEAN PLATELET VOLUME 7.3 fL (7.4-11.0); MONOCYTES # (AUTO) 0.8 x10^3/uL (0.3-0.8); MONOCYTES % (AUTO) 6.1 % (0.0-13.0); NEUTROPHILS # (AUTO) 11.5 x10^3/uL (2.2-4.8); NEUTROPHILS % (AUTO) 85.8 % (42.0-75.0); PLATELET COUNT 175 X10^3/uL (150.0-450.0); RED CELL DISTRIBUTION WIDTH 14.9 % (11.6-16.5)
[2024-01-03 05:49] LABS: ALANINE AMINOTRANSFERASE 35 Units/L (12-78); ALBUMIN 2.4 g/dL (3.4-5.0); ALKALINE PHOSPHATASE 62 Units/L (46-116); ASPARTATE AMINO TRANSFERASE 51 Units/L (15-37); BLOOD UREA NITROGEN 19 mg/dL (7-18); CALCIUM 8.3 mg/dL (8.5-10.1); CARBON DIOXIDE 24.8 mmol/L (21-32); CHLORIDE 103 mmol/L (98-107); COR CA(FOR HYPOALB) 9.6 mg/dL (8.5-10.1); CREATININE 1.43 mg/dL (0.55-1.02); POTASSIUM 3.3 mmol/L (3.5-5.1); SODIUM 136 mmol/L (136-145); TOTAL PROTEIN 6.5 g/dL (6.4-8.2); eGFR NON BLACK RACES 40 (>60)
[2024-01-03 05:50] LABS: GLUCOSE 36 mg/dL (65-99)
[2024-01-03] MEDS: D5 1/2 NS 1,000 ML 1,000 ML IV SCH (05:50)
[2024-01-03] MEDS: K-DUR TAB 20 MEQ PO ONE (05:50)
[2024-01-03] MEDS: LASIX IVP SCH (06:06)
[2024-01-03] MEDS: D50W ABBOJECT SYR IV ONE ×2 (06:09→20:27)
[2024-01-03] MEDS: SYNTHROID 150 mcg TAB PO SCH (06:20)
[2024-01-03] MEDS ORDERED: CONSULT PHARMACY - POTASSIUM & MAGNESIUM XX SCH ×2 (07:00→08:00)
[2024-01-03] MEDS: K-DUR TAB 20 MEQ PO SCH ×2 (08:41→10:23)
[2024-01-03] MEDS: D5 1/2 NS + KCL 20 MEQ/L 1,000 ML IV SCH (08:41)
[2024-01-03] MEDS: ZESTRIL TAB 20 MG PO SCH (08:49)
[2024-01-03 09:28] LABS: ABG ALLEN TEST POS; ABG BASE EXCESS -0.3 mmol/L (-2.0-2.0); ABG HCO3 22.6 mmol/L (22-26)
--- NOTE | 2024-01-03 10:13 | RAD ---
EXAM:Portable chestHISTORY:Respiratory distressCOMPARISON:01/02/2024 chest x-ray and CTA chestFINDINGS:Heart is mildly enlarged. No congestive heart failure is identified. Chronic appearing interstitial lung changes are present. No definite alveolar infiltrates or areas of consolidation identified. No pleural effusions are identified. Bony thorax is unremarkable.IMPRESSION:Mild cardiomegaly without congestive heart [id number] diffuse interstitial lung changes likely chronicNo alveolar infiltrates or areas of consolidation identified.THIS IS AN ELECTRONICALLY VERIFIED FINAL [id number]/03/2024 10:10 AM - Electronically signed by Josesito Lucero MD
[2024-01-03] MEDS: PYRIDIUM PO ONE (10:15)
[2024-01-03] MEDS: NYSTATIN POWDER TOP SCH (10:16)
[2024-01-03] MEDS: PROTONIX INJ 40 MG VIAL IVP SCH (10:17)
[2024-01-03] MEDS: TYLENOL 325 MG TAB PO PRN (12:21)
--- NOTE | 2024-01-03 17:00 | DR.CONSULT ---
CONSULT Consultation for Day of: Date: 01/03/24 Chief Complaint Chief Complaint: AMS/uti Allergies Allergies Allergy/AdvReac Type Severity Reaction Status Date / Time tetracycline Allergy Unknown Verified 01/01/24 19:14 History of Present Illness History of Present Illness: 63 yo female- has cad- severe multivessel cad by cath earlier this year- no pci- await cabg- had echo 05/14 that showed good Lv but ? pulm 80s- she states cath did not show this- on triple antianginal meds with rare occ cp- also with lung issues on home O2/JACOB on cpap-was found down by family for unclear amount of time- when came to er- temp to 103,hr 100s bp as low as 70- intial bun/cr c/w vol depletion- had cxr that was clear- ua/uc showed e coli uti- blood gram stain w GNR- subsequent cxr suggested chf, ddimer was elevated but cta: no pulm embolism- bnp: 28-41 not c/w chf- cr has gone from 1.83 to 1.43 with volume. Past Medical History Past Medical History: CHF, COPD, Depression, Diabetes, Dyslipidemia, GERD, Hypertension and Hypothyroidism Past Surgical History Surgical History: Appendectomy, , Hysterectomy, Ortho Surgery and Tonsillectomy Family History Family Medical History: Diabetes Mellitus, Cancer, [place], Coronary Artery Disease, Heart Failure, Sudden Cardiac and Hypertension Social History Does patient currently use any type of tobacco product: No Have you used tobacco products in the last 12 months: No Type of Tobacco Use: None Does any household member use tobacco: No Alcohol Use: None Drug Use: None Medications Home Medications: tetracycline Allergy (Unknown, Verified 01/01/24 19:14) CONTINUE taking the following medications amlodipine 10 mg tablet 10 mg PO QDAY 01/01/24 [History] duloxetine 60 mg capsule,delayed release 60 mg PO QDAY 01/01/24 [History] famotidine 20 mg tablet 20 mg PO QDAY 01/01/24 [History] gabapentin 600 mg tablet 600 mg PO TID 01/01/24 [History] glimepiride 4 mg tablet 4 mg PO QDAY 01/01/24 [History] hydroxyzine HCl 25 mg tablet 25 mg PO BID 01/01/24 [History] isosorbide mononitrate 30 mg tablet,extended release 24 hr 30 mg PO QDAY PRN 01/01/24 [History] levothyroxine 150 mcg tablet 150 mcg PO QDAY 01/01/24 [History] lisinopril 20 mg tablet 20 mg PO QDAY 01/01/24 [History] metoprolol succinate 50 mg tablet,extended release 24 hr 50 mg PO QDAY 01/01/24 [History] spironolactone 50 mg tablet 50 mg PO QDAY 01/01/24 [History] albuterol sulfate 90 mcg/actuation aerosol inhaler 2 puff inhalation Q4-6H PRN 01/02/24 [History] aspirin 81 mg tablet,delayed release 81 mg PO QDAY 01/02/24 [History] atorvastatin 20 mg tablet 20 mg PO QHS 01/02/24 [History] biotin 10,000 mcg chewable tablet 10,000 mcg PO DAILY 01/02/24 [History] nxdfcamwof-zsrlvowjjdsct-ltqgrglr 50 mg-325 mg-40 mg tablet 1 tab PO Q4H 01/02/24 [History] duloxetine 30 mg capsule,delayed release 30 mg PO DAILY 01/02/24 [History] ezetimibe 10 mg tablet 10 mg PO DAILY 01/02/24 [History] famotidine 20 mg tablet 20 mg PO BID 01/02/24 [History] fluticasone fur. 200 mcg-umeclid 62.5 mcg-vilant 25 mcg inhalat.powder (Trelegy Ellipta) 1 inh inhalation DAILY 01/02/24 [History] folic acid 1 mg tablet 1 mg PO 6XW 01/02/24 [History] hydrocodone 7.5 mg-acetaminophen 325 mg tablet 1 tab PO TID PRN 01/02/24 [History] methocarbamol 750 mg tablet 750 mg PO TID PRN 01/02/24 [History] nitroglycerin 0.4 mg sublingual tablet 0.4 mg sublingual Q5-15M PRN 01/02/24 [History] oxybutynin chloride 5 mg tablet 5 mg PO DAILY 01/02/24 [History] pantoprazole 40 mg tablet,delayed release 80 mg PO QDAY 01/02/24 [History] pramipexole 0.5 mg tablet 0.5 mg PO TID 01/02/24 [History] promethazine 25 mg tablet 25 mg PO DAILY PRN 01/02/24 [History] tizanidine 4 mg tablet 4 mg PO BID PRN 01/02/24 [History] Physical Exam Vital Signs: Vital Signs Temperature 98.6 F Temperature 100 F Pulse Rate [Right Brachial] 73 Pulse Rate [Right Brachial] 83 Respiratory Rate 20 Respiratory Rate 18 Respiratory Rate 22 Respiratory Rate 20 Blood Pressure [Right Arm] 90/54 Blood Pressure [Right Arm] 106/51 O2 Sat by Pulse Oximetry 95 O2 Sat by Pulse Oximetry 97 alert ox3 no jvd /bruits clear lungs rrr soft yarely minimal edema other labs to note: wbc 13k, hct 26 down from 34, k 3.3 abg 7.43/ then 7.47 , glucoses low in 30s tele: sinus echo: poor windows but LV preserved/pulm presssures normal Plan (1) Pyelonephritis: Status: Acute (2) UTI (urinary tract infection): Status: Acute (3) Hypoxia: Status: Acute Narrative Support Text: not felt to be in chf- hold lasix- suspect hypoxia from primary lung issues- good ef on echo/bnp low-let her eat /drink to euvolemia (4) Bacteremia: Status: Acute (5) CAD (coronary artery disease): Status: Acute Narrative Support Text: severe mutivessel cad per cath earlier this year (6) Renal insufficiency: Status: Acute Narrative Support Text: improving with volume (7) Hypokalemia: Status: Acute Narrative Support Text: replete (8) Low serum albumin: Status: Acute
[2024-01-03] MEDS: NS 250 ML IV 250 ML IV ONE (17:23)
[2024-01-03] MEDS: OMNIPAQUE 350 mg/mL 100 mL BTL 100 ML ONE (20:45)
[2024-01-04] MEDS: NORCO 7.5/325 MG TAB PO PRN (00:51)
[2024-01-04 04:40] LABS: BASOPHILS % (AUTO) 0.3 % (0.2-1.0); EOSINOPHILS # (AUTO) 0.1 x10^3/uL (0.0-0.2); EOSINOPHILS % (AUTO) 0.9 % (0.9-2.9); HEMATOCRIT 26.4 % (36.0-47.0); LYMPHOCYTES # (AUTO) 1.1 X10^3/uL (1.3-2.9); LYMPHOCYTES % (AUTO) 12.9 % (21.0-51.0); MEAN CORPUSCULAR HEMOGLOBIN 32.3 pg (27.0-34.0); MEAN CORPUSCULAR HGB CONC 33.9 g/dL (33.0-35.0); MEAN CORPUSCULAR VOLUME 95.3 fL (80.0-100.0); MONOCYTES # (AUTO) 0.6 x10^3/uL (0.3-0.8); MONOCYTES % (AUTO) 6.4 % (0.0-13.0); NEUTROPHILS % (AUTO) 79.5 % (42.0-75.0); PLATELET COUNT 167 X10^3/uL (150.0-450.0); RED BLOOD COUNT 2.78 X10^6/uL (3.5-5.4); RED CELL DISTRIBUTION WIDTH 14.9 % (11.6-16.5); WHITE BLOOD COUNT 8.8 X10^3/uL (3.6-10.0)
[2024-01-04 04:49] LABS: ALANINE AMINOTRANSFERASE 50 Units/L (12-78); ALBUMIN 2.2 g/dL (3.4-5.0); ALKALINE PHOSPHATASE 67 Units/L (46-116); ASPARTATE AMINO TRANSFERASE 68 Units/L (15-37); BLOOD UREA NITROGEN 19 mg/dL (7-18); CALCIUM 8.5 mg/dL (8.5-10.1); CARBON DIOXIDE 22.5 mmol/L (21-32); CHLORIDE 103 mmol/L (98-107); COR CA(FOR HYPOALB) 9.9 mg/dL (8.5-10.1); COR NA(FOR HYPERGLY) 135 mmol/L (136-145); CREATININE 1.13 mg/dL (0.55-1.02); GLUCOSE 140 mg/dL (65-99); POTASSIUM 4.7 mmol/L (3.5-5.1); SODIUM 134 mmol/L (136-145); TOTAL PROTEIN 6.6 g/dL (6.4-8.2); eGFR NON BLACK RACES 52 (>60)
[2024-01-04] MEDS: MAG-OX TAB PO SCH (06:31)
[2024-01-04] MEDS ORDERED: CONSULT PHARMACY - POTASSIUM & MAGNESIUM XX SCH (07:00)
[2024-01-04] MEDS: NORVASC TAB 5 MG PO SCH (09:35)
[2024-01-04] MEDS: ZESTRIL TAB 20 MG ONE (10:43)
--- NOTE | 2024-01-04 12:56 | NOTE.SOAP ---
Soap Note Note for Day of Date of Exam: 01/04/24 Subjective Data Subjective Data: feels better- no cp/sob Objective Data Objective Data: o2 now nasal cannula- bp 110-130 p 60-70 clear lungs rrr minimal edema labs: wbc down to 8.8, hct stable at 26.4 k 4.7 cr 1.13 down Assessment Assessment: uti/volume depletion/low K- all improving, cad stable Plan Plan: cont same therapy as improving daily
--- NOTE | 2024-01-04 14:01 | RAD ---
EXAM: CHEST, 1 VIEW HISTORY: CHF; COMPARISON: Prior study or studies were utilized for comparison during interpretation with the most relevant justyn ed 01/03/2024 TECHNIQUE: CHEST, 1 VIEW FINDINGS: Chest: Lines and tubes: None Mediastinum: Cardiac and mediastinal shadow is within normal limits for size and contour. Pulmonary vessels: No pulmonary vascular congestion. Lung gamez: No suspicious airspace opacity. Pleura: No effusion. No pneumothorax. Bones and soft tissues: No acute osseous or soft tissue abnormality. IMPRESSION: 1. No acute cardiopulmonary abnormality THIS IS AN ELECTRONICALLY VERIFIED FINAL REPORT 01/04/2024 1:58 PM - Electronically signed by Dk Pepper MD
[2024-01-04] MEDS: NS 1,000 ML IV 1,000 ML IV SCH (14:39)
[2024-01-04] MEDS: NovoLIN R (or HumuLIN R) SUBCUT PRN (17:25)
[2024-01-05 05:05] LABS: BASOPHILS % (AUTO) 0.3 % (0.2-1.0); EOSINOPHILS # (AUTO) 0.2 x10^3/uL (0.0-0.2); EOSINOPHILS % (AUTO) 2.6 % (0.9-2.9); HEMATOCRIT 29.1 % (36.0-47.0); HEMOGLOBIN 9.5 g/dL (12.0-16.0); LYMPHOCYTES # (AUTO) 1.6 X10^3/uL (1.3-2.9); LYMPHOCYTES % (AUTO) 22.3 % (21.0-51.0); MEAN CORPUSCULAR HEMOGLOBIN 31.4 pg (27.0-34.0); MEAN CORPUSCULAR HGB CONC 32.8 g/dL (33.0-35.0); MEAN CORPUSCULAR VOLUME 95.6 fL (80.0-100.0); MONOCYTES # (AUTO) 0.6 x10^3/uL (0.3-0.8); MONOCYTES % (AUTO) 8.3 % (0.0-13.0); NEUTROPHILS # (AUTO) 4.9 x10^3/uL (2.2-4.8); NEUTROPHILS % (AUTO) 66.5 % (42.0-75.0); PLATELET COUNT 200 X10^3/uL (150.0-450.0); RED BLOOD COUNT 3.04 X10^6/uL (3.5-5.4); RED CELL DISTRIBUTION WIDTH 14.4 % (11.6-16.5); WHITE BLOOD COUNT 7.3 X10^3/uL (3.6-10.0)
[2024-01-05 05:10] LABS: ALANINE AMINOTRANSFERASE 60 Units/L (12-78); ALBUMIN 2.5 g/dL (3.4-5.0); ALKALINE PHOSPHATASE 84 Units/L (46-116); ASPARTATE AMINO TRANSFERASE 52 Units/L (15-37); BLOOD UREA NITROGEN 15 mg/dL (7-18); CALCIUM 9.2 mg/dL (8.5-10.1); CARBON DIOXIDE 26.1 mmol/L (21-32); CHLORIDE 104 mmol/L (98-107); COR CA(FOR HYPOALB) 10.4 mg/dL (8.5-10.1); GLUCOSE 85 mg/dL (65-99); MAGNESIUM 1.7 mg/dL (2.0-2.9); POTASSIUM 4.2 mmol/L (3.5-5.1); SODIUM 138 mmol/L (136-145); TOTAL PROTEIN 7.3 g/dL (6.4-8.2); eGFR NON BLACK RACES 60 (>60)
[2024-01-05] MEDS: ZESTRIL TAB 20 MG ONE ×2 (06:58→08:48)
[2024-01-05 12:27] LABS: CRYPTOSPORIDIUM PARVUM ANTIGEN NEGATIVE (NEGATIVE); GIARDIA LAMBLIA ANTIGEN NEGATIVE (NEGATIVE)
--- NOTE | 2024-01-05 16:45 | DR.UPDATE ---
H&P Update Prescription drug monitoring program results: PDMP was not reviewed H&P Reviewed: Yes Any changes to H&P?: No Patient was examined?: Yes Vital Signs: Temp Pulse Pulse Pulse Resp BP BP 01/05/24 16:00 63 14 01/05/24 15:01 98.0 F 68 19 01/05/24 15:01 149/67 01/05/24 15:00 66 17 01/05/24 14:00 110/53 01/05/24 14:33 20 01/05/24 14:00 110/53 01/05/24 14:00 66 16 01/05/24 13:35 20 01/05/24 13:00 116/58 01/05/24 13:00 76 19 01/05/24 12:00 97.7 F 66 15 01/05/24 12:00 125/60 01/05/24 11:04 71 22 01/05/24 11:04 133/63 01/05/24 11:00 89 30 H 01/05/24 10:25 78 01/05/24 09:01 64 21 01/05/24 09:00 126/62 01/05/24 08:59 64 20 01/05/24 08:57 63 01/05/24 08:00 98.6 F 68 18 01/05/24 08:00 115/57 01/05/24 08:45 01/05/24 07:11 66 24 01/05/24 07:11 122/56 01/05/24 07:00 57 L 18 01/05/24 07:00 01/05/24 06:30 58 L 16 01/05/24 06:04 61 12 107/52 01/05/24 05:03 57 L 11 L 97/53 01/05/24 04:49 18 01/05/24 04:00 62 14 112/56 01/05/24 03:49 18 01/05/24 03:00 65 18 122/57 01/05/24 02:00 60 23 111/55 01/05/24 01:00 66 17 109/54 01/05/24 00:00 67 15 104/51 01/04/24 23:00 98.6 F 73 13 108/54 01/04/24 21:17 16 01/04/24 22:23 64 15 107/56 01/04/24 21:00 68 21 116/58 01/04/24 20:00 62 18 112/57 01/04/24 19:00 98.6 F 66 20 111/53 01/04/24 19:00 01/04/24 20:17 16 01/04/24 19:24 62 01/04/24 19:23 01/04/24 11:48 18 01/04/24 18:00 68 16 105/52 01/04/24 17:00 67 20 108/52 01/04/24 16:00 98.2 F 63 18 108/63 01/04/24 15:00 75 20 105/52 01/04/24 14:00 71 17 103/55 01/04/24 13:00 89 21 112/57 01/04/24 12:00 98.5 F 76 21 106/54 01/04/24 11:00 75 24 105/53 01/04/24 10:00 77 24 107/53 01/04/24 09:00 67 17 106/52 01/04/24 08:05 01/04/24 09:29 01/04/24 10:48 18 01/04/24 09:29 67 01/04/24 08:00 98.4 F 72 18 110/54 01/04/24 07:00 65 16 101/55 01/04/24 04:00 98.4 F 70 18 98/56 01/04/24 01:51 16 01/03/24 20:47 72 01/03/24 20:47 19 01/04/24 00:51 17 01/04/24 00:00 99.6 F 73 18 105/54 01/03/24 20:00 98.8 F 76 20 101/53 01/03/24 13:21 18 01/03/24 19:00 01/03/24 16:50 20 01/03/24 15:38 98.6 F 73 20 90/54 01/03/24 12:00 100 F H 83 22 106/51 01/03/24 08:00 99.0 F 77 21 114/55 01/03/24 09:36 20 01/03/24 12:21 18 01/03/24 08:37 66 01/03/24 08:36 01/03/24 07:00 01/03/24 06:10 20 01/03/24 03:55 99 F 89 20 114/55 01/03/24 03:14 20 01/02/24 22:59 20 01/02/24 20:50 77 01/02/24 20:50 20 01/02/24 23:39 100.6 F H 86 20 109/52 01/02/24 21:59 22 01/02/24 20:00 100.2 F H 79 18 105/53 01/02/24 19:00 01/02/24 16:51 22 Pulse Ox O2 Del Method O2 Flow Rate FiO2 01/05/24 16:00 96 01/05/24 15:01 95 01/05/24 15:01 01/05/24 15:00 94 L 01/05/24 14:00 01/05/24 14:33 01/05/24 14:00 01/05/24 14:00 91 L 01/05/24 13:35 01/05/24 13:00 01/05/24 13:00 92 L 01/05/24 12:00 94 L 01/05/24 12:00 01/05/24 11:04 96 01/05/24 11:04 01/05/24 11:00 94 L 01/05/24 10:25 94 L 01/05/24 09:01 99 01/05/24 09:00 01/05/24 08:59 98 01/05/24 08:57 93 L 01/05/24 08:00 96 01/05/24 08:00 01/05/24 08:45 Nasal Cannula 3 32 01/05/24 07:11 94 L 01/05/24 07:11 01/05/24 07:00 95 01/05/24 07:00 Nasal Cannula 3 01/05/24 06:30 94 L 01/05/24 06:04 95 01/05/24 05:03 95 01/05/24 04:49 01/05/24 04:00 93 L 01/05/24 03:49 01/05/24 03:00 95 01/05/24 02:00 95 01/05/24 01:00 94 L 01/05/24 00:00 95 01/04/24 23:00 96 01/04/24 21:17 01/04/24 22:23 96 01/04/24 21:00 96 01/04/24 20:00 95 01/04/24 19:00 94 L 01/04/24 19:00 Nasal Cannula 4 01/04/24 20:17 01/04/24 19:24 96 01/04/24 19:23 Nasal Cannula 4 36 01/04/24 11:48 01/04/24 18:00 95 01/04/24 17:00 95 01/04/24 16:00 93 L 01/04/24 15:00 93 L 01/04/24 14:00 92 L 01/04/24 13:00 94 L 01/04/24 12:00 93 L 01/04/24 11:00 92 L 01/04/24 10:00 93 L 01/04/24 09:00 97 01/04/24 08:05 Heated High Flow NC 01/04/24 09:29 Nasal Cannula 4 36 01/04/24 10:48 01/04/24 09:29 96 01/04/24 08:00 96 01/04/24 07:00 95 01/04/24 04:00 98 Heated High Flow NC 01/04/24 01:51 01/03/24 20:47 98 01/03/24 20:47 Heated High Flow NC 52 01/04/24 00:51 01/04/24 00:00 98 Heated High Flow NC 01/03/24 20:00 98 Heated High Flow NC 01/03/24 13:21 01/03/24 19:00 Heated High Flow NC 52 01/03/24 16:50 Heated High Flow NC 50 01/03/24 15:38 95 Heated High Flow NC 01/03/24 12:00 97 Heated High Flow NC 01/03/24 08:00 97 Heated High Flow NC 01/03/24 09:36 Heated High Flow NC 50 01/03/24 12:21 01/03/24 08:37 95 01/03/24 08:36 Heated High Flow NC 15 52 01/03/24 07:00 Heated High Flow NC 52 01/03/24 06:10 Heated High Flow NC 15 52 01/03/24 03:55 93 L Heated High Flow NC 01/03/24 03:14 Heated High Flow NC 15 47 01/02/24 22:59 01/02/24 20:50 97 01/02/24 20:50 Heated High Flow NC 36 01/02/24 23:39 95 Heated High Flow NC 01/02/24 21:59 01/02/24 20:00 96 Heated High Flow NC 01/02/24 19:00 Heated High Flow NC 52 01/02/24 16:51 Procedures (ALL) - Central Line Placement PCM.CLCO: written consent Time out performed: Yes Patient placed pm monitor/pulse ox: Yes MD prep: mask, gown, gloves, other Centrial line prep: chlorhexidine scrub, sterile drapes applied Local anesthsia used: lidocane 1% Ultrasound used for placement: Yes (pt req right arm. brachial v was only option) Central line lumen ininserted: double (5.5fr arrowpicc. trimmed to 43cm. 3cm exposed) Post procedure: good blood return, all ports aspirated, flushed,capped, sterile dressing applied Post procedure xray: tip oc catheter in good position (appears svc; radiology report pending) Patient tolerated procedure: Yes Complications: none
[2024-01-06 04:53] LABS: BASOPHILS % (AUTO) 0.5 % (0.2-1.0); EOSINOPHILS # (AUTO) 0.1 x10^3/uL (0.0-0.2); EOSINOPHILS % (AUTO) 2.7 % (0.9-2.9); HEMATOCRIT 24.8 % (36.0-47.0); HEMOGLOBIN 8.3 g/dL (12.0-16.0); LYMPHOCYTES # (AUTO) 1.2 X10^3/uL (1.3-2.9); LYMPHOCYTES % (AUTO) 25.5 % (21.0-51.0); MEAN CORPUSCULAR HEMOGLOBIN 31.8 pg (27.0-34.0); MEAN CORPUSCULAR HGB CONC 33.6 g/dL (33.0-35.0); MEAN CORPUSCULAR VOLUME 94.9 fL (80.0-100.0); MEAN PLATELET VOLUME 7.7 fL (7.4-11.0); MONOCYTES # (AUTO) 0.4 x10^3/uL (0.3-0.8); MONOCYTES % (AUTO) 8.1 % (0.0-13.0); NEUTROPHILS # (AUTO) 3.1 x10^3/uL (2.2-4.8); NEUTROPHILS % (AUTO) 63.2 % (42.0-75.0); PLATELET COUNT 191 X10^3/uL (150.0-450.0); RED BLOOD COUNT 2.61 X10^6/uL (3.5-5.4); RED CELL DISTRIBUTION WIDTH 14.6 % (11.6-16.5); WHITE BLOOD COUNT 4.9 X10^3/uL (3.6-10.0)
[2024-01-06 05:10] LABS: ALANINE AMINOTRANSFERASE 51 Units/L (12-78); ALBUMIN 2.1 g/dL (3.4-5.0); ALKALINE PHOSPHATASE 74 Units/L (46-116); ASPARTATE AMINO TRANSFERASE 35 Units/L (15-37); BLOOD UREA NITROGEN 12 mg/dL (7-18); CALCIUM 8.8 mg/dL (8.5-10.1); CARBON DIOXIDE 26.4 mmol/L (21-32); CHLORIDE 105 mmol/L (98-107); COR CA(FOR HYPOALB) 10.3 mg/dL (8.5-10.1); COR NA(FOR HYPERGLY) 139 mmol/L (136-145); CREATININE 0.84 mg/dL (0.55-1.02); GLUCOSE 130 mg/dL (65-99); MAGNESIUM 1.4 mg/dL (2.0-2.9); POTASSIUM 3.9 mmol/L (3.5-5.1); SODIUM 138 mmol/L (136-145); TOTAL PROTEIN 6.2 g/dL (6.4-8.2); eGFR NON BLACK RACES > 60 (>60)
[2024-01-06 06:15] LABS: ABG ALLEN TEST POS; ABG BASE EXCESS 0.6 mmol/L (-2.0-2.0); ABG HCO3 24.3 mmol/L (22-26)
[2024-01-06] MEDS ORDERED: CONSULT PHARMACY - POTASSIUM & MAGNESIUM XX SCH (08:00)
[2024-01-06] MEDS: NS 1,000 ML IV 1,000 ML with MAGNESIUM SULFATE 50% INJ VIAL 2 G IV SCH (08:56)
[2024-01-06] MEDS: ZESTRIL TAB 20 MG ONE (08:58)
[2024-01-06] MEDS: PYRIDIUM PO ONE (09:30)
[2024-01-06 11:13] VITALS: BP 117/53; PULSE 63; RESP 16; O2SAT 99
[2024-01-06 11:28] VITALS: TEMP 98
--- NOTE | 2024-01-06 15:43 | RAD ---
EXAM: CHEST, 1 VIEW HISTORY: PICC LINE PLACEMENT; COMPARISON: 01/04/2024 FINDINGS: The patient is rotated. There is a right PICC line present with its tip in the distal SVC. The card iac silhouette is stable. There is patchy subsegmental atelectasis or infiltrate in the left base. No pleural effusion or pneumothorax.. The bony thorax is unremarkable. IMPRESSION: Right PICC line with tip in distal SVC. Patchy subsegmental atelectasis and/or infiltrate left base. THIS IS AN ELECTRONICALLY VERIFIED FINAL REPORT 01/06/2024 3:41 PM - Electronically signed by Zander Sanchez MD
== END 2024-01-06 12:05 | disposition home health service (06) | DRG 690 ==
LOC: MED/SURG 19:03 → ER 19:03 → OBSVTOIN 01-02 01:48 → MED/SURG 01-02 02:12 → ICU 01-03 15:00
PROVIDERS: ADMIT Family Medicine; ATTEND Internal Medicine
DX: I50.9 Heart failure, unspecified; R41.82 Altered mental status, unspecified; I25.10 Atherosclerotic heart disease of native coronary artery without angina pectoris; Z99.81 Dependence on supplemental oxygen; R09.02 Hypoxemia; R06.02 Shortness of breath; E03.8 Other specified hypothyroidism; Z29.89 Encounter for other specified prophylactic measures; Z16.29 Resistance to other single specified antibiotic; I11.0 Hypertensive heart disease with heart failure; N12 Tubulo-interstitial nephritis, not specified as acute or chronic; B96.29 Other Escherichia coli [E. coli] as the cause of diseases classified elsewhere; E86.0 Dehydration; J44.9 Chronic obstructive pulmonary disease, unspecified; R77.0 Abnormality of albumin; R79.1 Abnormal coagulation profile; E83.42 Hypomagnesemia; N39.0 Urinary tract infection, site not specified; E78.5 Hyperlipidemia, unspecified; Z16.12 Extended spectrum beta lactamase (ESBL) resistance; Z16.23 Resistance to quinolones and fluoroquinolones; N28.89 Other specified disorders of kidney and ureter; E11.65 Type 2 diabetes mellitus with hyperglycemia; Z20.822 Contact with and (suspected) exposure to COVID-19; K21.9 Gastro-esophageal reflux disease without esophagitis; E87.6 Hypokalemia; R51.9 Headache, unspecified; R78.81 Bacteremia

== ENCOUNTER 2024-05-14 15:13 | Observation (INO) ==
[2024-05-14 17:29] VITALS: BMI 29.6
--- NOTE | 2024-05-14 17:53 | DR.H&P ---
H&P History & Physical for Day of: H&P Date: 05/14/24 Chief Complaint Chief Complaint: "passed out", low blood pressure History of Present Illness History of Present Illness: PT IS 64 WF, DIRECT ADMIT FROM DR ALBERT OFFICE WITH CO PASSED OUT AND INCREASED SOB. PT WAS SEEN LAST TUESDAY AT [facility] WITH CO "NEAR SYNCOPE" AND SUSPECTED UTI. PT HAD CBC, CMP, UA AND UC AT THAT TIME AND STARTED ON ANTIBIOTIC FOR A UTI. PT HAS RECENTLY HAD CABG AND A BOUT WITH PNEUMONIA, WHICH WAS RESOLVED ON HER CXR ONE WEEK AGO. PT HAS BEEN ON SUPPLEMENTAL O2 AT HOME. PT'S HOME HEALTH NURSE REPORTED PT PASSED OUT THIS AM. PT REFUSED EMS TRANSPORT OR ER EVALUATION. PT WAS ADMITTED FOR TREATMENT AND EVALUATION OF ACUTE SYNCOPE AND FAILED OP TREATMENT OF UTI. PT HAS HAD SEPSIS IN THE PAST DUE TO UTI. Past Medical History Past Medical History: CHF, COPD, Depression, Diabetes, Dyslipidemia, GERD, Hypertension and Hypothyroidism Past Surgical History Surgical History: Appendectomy, , CABG/Valve Surgery, Hysterectomy, Ortho Surgery and Tonsillectomy Family History Family Medical History: Diabetes Mellitus, Cancer, Coronary Artery Disease, Heart Failure, Sudden Cardiac and Hypertension Social History Does patient currently use any type of tobacco product: No Type of Tobacco Use: Cigarettes Does any household member use tobacco: No Alcohol Use: None Drug Use: None Medications Home Medications: Home Medications Medication Instructions Recorded Confirmed Type metformin 500 mg tablet 500 mg PO BIDWMEAL 05/02/23 01/02/24 History duloxetine 60 mg capsule,delayed 60 mg PO QDAY 01/01/24 01/01/24 History release famotidine 20 mg tablet 20 mg PO QDAY 01/01/24 01/01/24 History gabapentin 600 mg tablet 600 mg PO TID 01/01/24 01/01/24 History glimepiride 4 mg tablet 4 mg PO QDAY 01/01/24 01/01/24 History hydroxyzine HCl 25 mg tablet 25 mg PO BID 01/01/24 01/01/24 History isosorbide mononitrate 30 mg 30 mg PO QDAY PRN 01/01/24 01/01/24 History tablet,extended release 24 hr levothyroxine 150 mcg tablet 150 mcg PO QDAY 01/01/24 01/01/24 History metoprolol succinate 50 mg 50 mg PO QDAY 01/01/24 01/01/24 History tablet,extended release 24 hr spironolactone 50 mg tablet 50 mg PO QDAY 01/01/24 01/01/24 History albuterol sulfate 90 mcg/actuation 2 puff inhalation Q4-6H PRN 01/02/24 01/02/24 History aerosol inhaler aspirin 81 mg tablet,delayed 81 mg PO QDAY 01/02/24 01/02/24 History release atorvastatin 20 mg tablet 20 mg PO QHS 01/02/24 01/02/24 History biotin 10,000 mcg chewable tablet 10,000 mcg PO DAILY 01/02/24 01/02/24 History vkodolnorm-bjiulrmohcwms-rcznqliv 1 tab PO Q4H 01/02/24 01/02/24 History 50 mg-325 mg-40 mg tablet duloxetine 30 mg capsule,delayed 30 mg PO DAILY 01/02/24 01/02/24 History release ezetimibe 10 mg tablet 10 mg PO DAILY 01/02/24 01/02/24 History famotidine 20 mg tablet 20 mg PO BID 01/02/24 01/02/24 History fluticasone fur. 200 mcg-umeclid 1 inh inhalation DAILY 01/02/24 01/02/24 History 62.5 mcg-vilant 25 mcg inhalat.powder (Trelegy Ellipta) folic acid 1 mg tablet 1 mg PO 6XW 01/02/24 01/02/24 History hydrocodone 7.5 mg-acetaminophen 1 tab PO TID PRN 01/02/24 01/02/24 History 325 mg tablet methocarbamol 750 mg tablet 750 mg PO TID PRN 01/02/24 01/02/24 History nitroglycerin 0.4 mg sublingual 0.4 mg sublingual Q5-15M PRN 01/02/24 01/02/24 History tablet oxybutynin chloride 5 mg tablet 5 mg PO DAILY 01/02/24 01/02/24 History pantoprazole 40 mg tablet,delayed 80 mg PO QDAY 01/02/24 01/02/24 History release pramipexole 0.5 mg tablet 0.5 mg PO TID 01/02/24 01/02/24 History promethazine 25 mg tablet 25 mg PO DAILY PRN 01/02/24 01/02/24 History tizanidine 4 mg tablet 4 mg PO BID PRN 01/02/24 01/02/24 History Allergies Allergies Allergy/AdvReac Type Severity Reaction Status Date / Time tetracycline Allergy Unknown Verified 01/01/24 19:14 Review of Systems Constitutional: Weakness Eyes: No Symptoms Reported ENT: No Symptoms Reported Respiratory: Shortness of Breath Cardiovascular: Paroxysmal Noc. Dyspnea and Light Headedness Gastrointestinal: denies Diarrhea Genitourinary: Frequency Musculoskeletal: Back Pain Skin: No Symptoms Reported Neurological: Weakness and Other (SYNCOPE) Physical Exam Vital Signs: Vital Signs Temperature 99.2 F Temperature 99.2 F Pulse Rate [Bilateral Radial] 82 Pulse Rate [Bilateral Radial] 82 Respiratory Rate 22 Respiratory Rate 22 Blood Pressure [Left Arm] 130/79 Blood Pressure [Left Arm] 130/79 O2 Sat by Pulse Oximetry 97 O2 Sat by Pulse Oximetry 97 Oriented: Normal Eyes: Normal Nose: Normal Throat: Dry Respiratory: Diminished Throughout Cardiovascular: Murmur Auscultation: Bowel Sounds: Normal Tenderness: Normal Skin: Decreased Turgur Musculoskeletal: Motor Deficit Psychiatric: Anxiety Mood Description: Anxious Affect: Anxious Speech Pattern: Clear Assessment/Plan (1) Syncope: Status: Acute Plan: ADMIT, ICU, SERIAL CE AND EKG CXR ON ADMISSION, BC AND UC VERIFY HOME MEDICATIONS AND RESUME BP CONTROL, BS CONTROL SUPPLEMENTAL O2 AND RESP THERAPY BNP, I&OS, CXR ON ADMISSION, RESP PANEL RO COVID, FLU AND RSV (2) CAD (coronary artery disease): Status: Acute (3) CHF (congestive heart failure): Status: Acute (4) Hypoxia: Status: Acute (5) UTI (urinary tract infection): Status: Acute (6) Diabetes 1.5, managed as type 2: Status: Chronic
--- NOTE | 2024-05-14 18:03 | EKG ---
Test Reason : sob, syncope Blood Pressure : */* mmHG Vent. Rate : 73 BPM Atrial Rate : 73 BPM P-R Int : 146 ms QRS Dur : 78 ms QT Int : 406 ms P-R-T Axes : 45 17 23 degrees QTc Int : 447 ms Normal sinus rhythm Normal ECG When compared with ECG of 24-APR-2024 21:28, Vent. rate has increased BY 41 BPM QT has lengthened Confirmed by Raghavendra Martínez MD ([id number]) on 05/15/2024 7:34:41 AM Referred By: Confirmed By: Raghavendra Martínez MD
[2024-05-14 18:11] LABS: RETICULOCYTE % 0.9 % (0.8-2.2)
[2024-05-14 18:12] LABS: INR 1.02 (0.8-1.3)
[2024-05-14] MEDS: NS 1,000 ML IV 1,000 ML IV SCH (18:22)
[2024-05-14] MEDS: ROCEPHIN VIAL 1 GRAM 1 G in NS 100 ML IV 100 ML IV SCH (18:23)
[2024-05-14] MEDS: NORCO 5/325 MG TAB PO PRN (20:51)
[2024-05-14] MEDS: SNACK - Diabetic Appropriate PO SCH (20:53)
[2024-05-14 23:22] LABS: BILIRUBIN,URINE 1+ (NEGATIVE); BLOOD/HEMOGLOBIN,URINE 2+ (NEGATIVE); GLUCOSE, URINE 2+ (NEGATIVE); KETONES,URINE NEGATIVE (NEGATIVE); LEUKOCYTE ESTERASE ,URINE 3+ (NEGATIVE); NITRITES,URINE POSITIVE (NEGATIVE); PROTEIN,URINE 3+ (NEGATIVE); UROBILINOGEN,URINE 1+ (NORMAL)
[2024-05-14 23:29] LABS: APPEARANCE,URINE HAZY (CLEAR); BACTERIA,URINE 1+ /HPF (NEGATIVE); COLOR,URINE ORANGE (YELLOW); SQUAMOUS EPITHELIAL CELL,UR MODERATE /HPF (NEGATIVE); YEAST,URINE FEW /HPF (NEGATIVE)
--- NOTE | 2024-05-15 08:06 | RAD ---
EXAM:Portable chestHISTORY:Syncope, shortness of breathCOMPARISON:05/02/2024FINDINGS:Keeley ent is status post median sternotomy and CABG. Heart is upper limits normal in size. No congestive heart failure is noted. Lungs are well inflated and free of acute alveolar infiltrates. Bibasilar subsegmental atelectasis is identified. Bony thorax is unremarkable.IMPRESSION:No definite acute infiltratesBibasilar subsegmental atelectasisTHIS IS AN ELECTRONICALLY VERIFIED FINAL REPORT05/15/2024 8:02 AM - Electronically signed by Josesito Lucero MD
[2024-05-15] MEDS: MERREM VIAL 1 G in NS 100 ML IV 100 ML IV SCH (10:15)
[2024-05-15] MEDS: TOPROL XL PO SCH (10:19)
[2024-05-15] MEDS: SYNTHROID 125 mcg TAB PO SCH (10:19)
[2024-05-15] MEDS: LASIX PO SCH (10:19)
[2024-05-15] MEDS: LOVENOX INJ 40 MG SYR SC SCH (10:20)
[2024-05-15] MEDS: INFeD or DEXFERRUM 25 MG in NS 100 ML IV 100 ML IV ONE (13:00)
[2024-05-15] MEDS: INFeD or DEXFERRUM 975 MG in NS 500 ML IV 500 ML IV ONE (14:36)
[2024-05-15] MEDS: NORCO 7.5/325 MG TAB PO PRN (18:45)
[2024-05-15] MEDS: XOPENEX 1.25 MG/3 ML NEBULE NEB PRN (20:13)
[2024-05-15] MEDS: ZETIA TAB 10 MG PO SCH (21:18)
[2024-05-15] MEDS: LIPITOR TAB 20 MG PO SCH (21:20)
--- NOTE | 2024-05-16 05:28 | RAD ---
EXAM: FEMUR, RIGHT HISTORY: fall; COMPARISON: None. TECHNIQUE: FINDINGS: No evidence for fracture or malalignment. Bone density is normal without evidence for focal osseous l esion, periosteal reaction, or cortical erosion. There is no significant arthropathy. Soft tissues ar e unremarkable. IMPRESSION: No acute osseous abnormality identified THIS IS AN ELECTRONICALLY VERIFIED FINAL REPORT 05/16/2024 5:24 AM - Electronically signed by Johanna Flores MD
[2024-05-16] MEDS: CYMBALTA PO SCH (08:23)
[2024-05-16] MEDS: PEPCID TAB 20 MG PO SCH (08:23)
[2024-05-16 08:43] LABS: BASOPHILS % (AUTO) 0.3 % (0.2-1.0); EOSINOPHILS # (AUTO) 0.1 x10^3/uL (0.0-0.2); HEMATOCRIT 24.6 % (36.0-47.0); HEMOGLOBIN 8.3 g/dL (12.0-16.0); LYMPHOCYTES # (AUTO) 0.9 X10^3/uL (1.3-2.9); LYMPHOCYTES % (AUTO) 16.6 % (21.0-51.0); MEAN CORPUSCULAR HEMOGLOBIN 30.3 pg (27.0-34.0); MEAN CORPUSCULAR HGB CONC 33.6 g/dL (33.0-35.0); MEAN CORPUSCULAR VOLUME 90.3 fL (80.0-100.0); MEAN PLATELET VOLUME 7.5 fL (7.4-11.0); MONOCYTES # (AUTO) 0.4 x10^3/uL (0.3-0.8); MONOCYTES % (AUTO) 7.5 % (0.0-13.0); NEUTROPHILS % (AUTO) 74.6 % (42.0-75.0); PLATELET COUNT 245 X10^3/uL (150.0-450.0); RED BLOOD COUNT 2.73 X10^6/uL (3.5-5.4); RED CELL DISTRIBUTION WIDTH 18.3 % (11.6-16.5); WHITE BLOOD COUNT 5.3 X10^3/uL (3.6-10.0)
--- NOTE | 2024-05-16 08:52 | CT ---
EXAM:CT HEAD WITHOUT CONTRASTHISTORY:FALL;COMPARISON:None. r.br.br.br without contrast.All CT scans at this facility use dose modulation, iterative reconstruction, and/or weight based dosing when appropriate to reduce radiation dose to as low as reasonably achievable.FINDINGS:No acute intracranial hemorrhage or extra-axial fluid collection. No mass effect or midline shift. Mcdonald-white differentiation is preserved. Mild cerebral atrophy. Intact calvarium. Paranasal sinuses and mastoid air cells are well-aerated.IMPRESSION:No acute intracranial findings.THIS IS AN ELECTRONICALLY VERIFIED FINAL REPORT05/15/2024 12:33 PM - Electronically signed by Pipe Greene MD
[2024-05-16 08:54] LABS: ALBUMIN 2.1 g/dL (3.4-5.0); ALKALINE PHOSPHATASE 84 Units/L (46-116); BLOOD UREA NITROGEN 13 mg/dL (7-18); CALCIUM 9.3 mg/dL (8.5-10.1); CHLORIDE 103 mmol/L (98-107); COR CA(FOR HYPOALB) 10.8 mg/dL (8.5-10.1); COR NA(FOR HYPERGLY) 139 mmol/L (136-145); CREATININE 0.87 mg/dL (0.55-1.02); GLUCOSE 200 mg/dL (65-99); POTASSIUM 4.1 mmol/L (3.5-5.1); SODIUM 137 mmol/L (136-145); TOTAL PROTEIN 7.2 g/dL (6.4-8.2); eGFR NON BLACK RACES > 60 (>60)
[2024-05-16 09:20] LABS: ALANINE AMINOTRANSFERASE 22 Units/L (12-78); ASPARTATE AMINO TRANSFERASE 22 Units/L (15-37)
[2024-05-16] MEDS: NovoLIN R (or HumuLIN R) SUBCUT PRN (12:56)
[2024-05-16] MEDS ORDERED: ZOFRAN TAB 4 MG SL PRN (21:16)
[2024-05-16] MEDS ORDERED: ZOFRAN INJ 4 MG VIAL ONE (21:20)
[2024-05-16] MEDS: ZOFRAN INJ 4 MG VIAL IVP PRN (21:23)
[2024-05-17 05:40] LABS: BASOPHILS % (AUTO) 0.7 % (0.2-1.0); EOSINOPHILS # (AUTO) 0.1 x10^3/uL (0.0-0.2); EOSINOPHILS % (AUTO) 2.4 % (0.9-2.9); HEMATOCRIT 22.8 % (36.0-47.0); HEMOGLOBIN 7.8 g/dL (12.0-16.0); LYMPHOCYTES # (AUTO) 1.6 X10^3/uL (1.3-2.9); LYMPHOCYTES % (AUTO) 32.5 % (21.0-51.0); MEAN CORPUSCULAR HEMOGLOBIN 30.7 pg (27.0-34.0); MEAN CORPUSCULAR HGB CONC 34.2 g/dL (33.0-35.0); MEAN CORPUSCULAR VOLUME 89.7 fL (80.0-100.0); MEAN PLATELET VOLUME 7.8 fL (7.4-11.0); MONOCYTES # (AUTO) 0.5 x10^3/uL (0.3-0.8); MONOCYTES % (AUTO) 9.4 % (0.0-13.0); NEUTROPHILS # (AUTO) 2.7 x10^3/uL (2.2-4.8); PLATELET COUNT 295 X10^3/uL (150.0-450.0); RED BLOOD COUNT 2.54 X10^6/uL (3.5-5.4); RED CELL DISTRIBUTION WIDTH 18.5 % (11.6-16.5); WHITE BLOOD COUNT 4.8 X10^3/uL (3.6-10.0)
[2024-05-17 06:02] LABS: ALANINE AMINOTRANSFERASE 18 Units/L (12-78); ALBUMIN 2.2 g/dL (3.4-5.0); ALKALINE PHOSPHATASE 84 Units/L (46-116); BLOOD UREA NITROGEN 12 mg/dL (7-18); CALCIUM 9.4 mg/dL (8.5-10.1); CHLORIDE 103 mmol/L (98-107); COR CA(FOR HYPOALB) 10.8 mg/dL (8.5-10.1); CREATININE 0.89 mg/dL (0.55-1.02); GLUCOSE 100 mg/dL (65-99); POTASSIUM 3.9 mmol/L (3.5-5.1); SODIUM 140 mmol/L (136-145); TOTAL PROTEIN 7.1 g/dL (6.4-8.2); eGFR NON BLACK RACES > 60 (>60)
[2024-05-17 06:22] LABS: ASPARTATE AMINO TRANSFERASE 14 Units/L (15-37)
--- NOTE | 2024-05-17 10:19 | RAD ---
EXAM:Portable AP chestHISTORY:Syncope SOBCOMPARISON:05/14/2024, chest 01/04/2024FINDINGS:Heart size normal with sternal wires. Re-demonstration of multiple bibasal linear pulmonary parenchymal densities without evidence for lobar consolidation or pleural fluid.IMPRESSION:No significant change since 05/14/2024. Bibasal linear opacities consistent with fibrosis or subsegmental atelectasis. Lung bases were clear, normal and well-aerated on an older examination 01/04/2024.THIS IS AN ELECTRONICALLY VERIFIED FINAL REPORT05/17/2024 10:15 AM - Electronically signed by Danielito Jacobo MD
--- NOTE | 2024-05-17 16:21 | CT ---
EXAM: CT ABDOMEN AND PELVIS WITHOUT CONTRAST HISTORY: abdominal pain; COMPARISON: CT dated 01/02/2024. TECHNIQUE: Axial CT images were obtained through the abdomen and pelvis without contrast. Coronal reformatted im ages were included. All CT scans at this facility use dose modulation, iterative reconstruction, and/or weight based dosi ng when appropriate to reduce radiation dose to as low as reasonably achievable. FINDINGS: Please note that without the use of intravenous contrast, evaluation of organ parenchyma is limited. Mild bibasilar scarring atelectasis. Unenhanced liver is unremarkable. Prior cholecystectomy. No biliary dilatation. Unremarkable splee n, pancreas, and adrenals. No hydronephrosis or perinephric stranding. No evidence of urinary calcu li. Moderate aortoiliac atherosclerosis without aneurysm. No lymphadenopathy. No abnormally distended or focally thickened bowel loops. Moderate colonic stool burden. Scattered colonic diverticula without surrounding inflammation. Normal right lower quadrant appendix. Unremar kable urinary bladder. Retroverted uterus. No free pelvic fluid. No acute osseous findings. Mild lumbar spondylosis. IMPRESSION: No acute findings in the abdomen or pelvis. THIS IS AN ELECTRONICALLY VERIFIED FINAL REPORT 05/17/2024 4:09 PM - Electronically signed by Pipe Greene MD
[2024-05-17 16:25] VITALS: BP 110/59; PULSE 54; RESP 12; TEMP 98.2; O2SAT 100
[2024-05-17] MEDS: NS 250 ML IV 250 ML IV ONE (16:34)
[2024-05-17] MEDS ORDERED: LASIX IVP ONE (17:06)
[2024-05-17] MEDS: K-DUR TAB 20 MEQ PO SCH (17:25)
[2024-05-17] MEDS: LASIX IVP ONE (17:25)
[2024-05-17 18:17] LABS: HEMATOCRIT 32.6 % (36.0-47.0); HEMOGLOBIN 11.1 g/dL (12.0-16.0)
== END 2024-05-17 18:35 | disposition home health service (06) ==
LOC: ICU
PROVIDERS: ADMIT Internal Medicine; ATTEND Internal Medicine
DX: M79.661 Pain in right lower leg; I50.9 Heart failure, unspecified; Z98.890 Other specified postprocedural states; I25.10 Atherosclerotic heart disease of native coronary artery without angina pectoris; I11.0 Hypertensive heart disease with heart failure; J44.89 Other specified chronic obstructive pulmonary disease; D64.89 Other specified anemias; R06.02 Shortness of breath; R55 Syncope and collapse; K21.9 Gastro-esophageal reflux disease without esophagitis; E03.8 Other specified hypothyroidism; N39.0 Urinary tract infection, site not specified; E78.5 Hyperlipidemia, unspecified; Z03.818 Encounter for observation for suspected exposure to other biological agents ruled out; R09.02 Hypoxemia; R26.89 Other abnormalities of gait and mobility; Z99.81 Dependence on supplemental oxygen; I95.89 Other hypotension; R10.84 Generalized abdominal pain; E11.65 Type 2 diabetes mellitus with hyperglycemia; W18.39XA Other fall on same level, initial encounter

== ENCOUNTER 2024-10-11 16:45 | Observation (INO) ==
--- NOTE | 2024-10-11 17:26 | DR.H&P ---
H&P History & Physical for Day of: H&P Date: 10/11/24 Chief Complaint Chief Complaint: uti, weakness, elevated blood sugar History of Present Illness History of Present Illness: PT IS 64 WF, DIRECT ADMIT FROM DR NOYOLA OFFICE WITH CO WEAKNESS AND ELEVATED BLOOD SUGAR, UTI AND REPORTS POSITIVE BLOOD CULTURES FROM ER VISIT ON 10/10. PT HAS PREVIOUSLY HAD BACTEREMIA FROM [facility] AND HAS SEEN DR NEWELL FOR UROLOGY EVALUATION. PT IS A CARDIAC PT WITH RENAL DISEASE, CHF AND DIABETES. PT REPORTS OF BS 400S AND STARTED ON SLIDING SCALE INSULIN. PT ADMITTED FOR EVALUATION AND TREATMENT OF ACUTE ILLNESS Past Medical History Past Medical History: CHF, COPD, Depression, Diabetes, Dyslipidemia, GERD, Hypertension and Hypothyroidism Past Surgical History Surgical History: Appendectomy, , CABG/Valve Surgery, Hysterectomy, Ortho Surgery and Tonsillectomy Family History Family Medical History: Diabetes Mellitus, Cancer, Coronary Artery Disease, Heart Failure, Sudden Cardiac and Hypertension Medications Home Medications: Home Medications Medication Instructions Recorded Confirmed Type duloxetine 60 mg capsule,delayed 60 mg PO QDAY 4 10/10/24 History release famotidine 20 mg tablet 20 mg PO BID 01/01/24 History gabapentin 600 mg tablet 600 mg PO TID 01/01/2410/10 History spironolactone 50 mg tablet 50 mg PO QDAY 01/01/24 History albuterol sulfate 90 mcg/actuation 2 puff inhalation Q 4-6H PRN 01/02/24 10/10/24 History aerosol inhaler atorvastatin 20 mg tablet 20 mg PO QHS 01/02/24 History ezetimibe 10 mg tablet 10 mg PO HS 01/02/24 5 History fluticasone fur. 200 mcg-umeclid 1 inh inhalation DUNG Y 01/02/24 10/10/24 History 62.5 mcg-vilant 25 mcg inhalat.powder (Trelegy Ellipta) aspirin 81 mg capsule 81 mg PO DAILY 05/15/2409/19 History ckuotwgrih-siqwdgowpgvdc-jndhsxiw 325 tab PO Q4-6H PRN 05/15/24 10/10/24 History 50 mg-325 mg-40 mg tablet furosemide 40 mg tablet 40 mg PO DAILY PRN 05/15/24 10/10/24 History glimepiride 4 mg tablet 4 mg PO BID 05/15/24 5 History amlodipine 10 mg tablet 10 mg PO QDAY 10/10/2410/10 History buspirone 5 mg tablet 5 mg PO BID 10/10/24 5 History folic acid 1 mg tablet 1 mg PO QDAY 10/10/24 History hydrocodone 7.5 mg-acetaminophen 1 tab PO QID PRN 09/1910/10/24 History 325 mg tablet insulin regular human 100 unit/mL 1 sliding scale dose subcut 10/10/24 10/10/24 History injection solution (Novolin R USEASDIRECTD Regular U-100 Insulin) levothyroxine 175 mcg tablet 175 mcg PO QDAY 10/10/24 10/10/24 History pramipexole 0.5 mg tablet 0.5 mg PO TID 10/10/2410/10 History tizanidine 4 mg tablet 4 mg PO Q8H PRN 10/10/24 History Allergies Allergies Allergy/AdvReac Type Severity Reaction Status Date / Time tetracycline Allergy Unknown Verified 10/10/24 20:46 Review of Systems Constitutional: Chills, Weakness and Malaise Eyes: No Symptoms Reported ENT: No Symptoms Reported Respiratory: Shortness of Breath Cardiovascular: Edema Gastrointestinal: Nausea Genitourinary: Dysuria and Frequency Musculoskeletal: Back Pain Skin: No Symptoms Reported Neurological: Weakness and Confusion Oriented: Normal Eyes: Normal Ear: Normal Nose: Normal Throat: Normal Respiratory: RLL Diminished and LLL Diminished Cardiovascular: Normal Auscultation: Bowel Sounds: Normal Palpation: Normal Tenderness: Normal Skin: Decreased Turgur Musculoskeletal: Back:Lumbar Psychiatric: Anxiety Mood Description: Anxious Speech Pattern: Clear and Appropriate Assessment/Plan (1) Bacteremia: Status: Acute Plan: ADMIT, BC AND UC OBTAINED ON 10/10 FROM [facility] ER IV ATBX, IV HYDRATION CXR ON ADMISSION, BS CONTROL CARDIAC MONITORING, I&OS RESP CONSULT AND PRN SUPPLEMENTAL O2 (2) Urinary tract infection due to extended-spectrum beta lactamase (ESBL) producing Escherichia coli: Status: Acute (3) CAD (coronary artery disease): Status: Acute (4) Hypertension: Qualifiers: Hypertension type: primary hypertension Qualified Code(s): I10 - Essential (primary) hypertension Status: Chronic (5) Diabetes 1.5, managed as type 2: Status: Chronic
[2024-10-11 18:43] VITALS: BMI 31.6
[2024-10-11 18:56] LABS: RED CELL DISTRIBUTION WIDTH 15.6 % (11.6-16.5)
[2024-10-11 19:00] LABS: MEAN PLATELET VOLUME 7.6 fL (7.4-11.0)
[2024-10-11 19:12] LABS: COR NA(FOR HYPERGLY) 134 mmol/L (136-145); CREATININE 2.33 mg/dL (0.55-1.02); eGFR NON BLACK RACES 22 (>60)
[2024-10-11] MEDS: INVanz INJ 1 GRAM VIAL 1 G in NS 100 ML IV 100 ML IV SCH (19:39)
[2024-10-11] MEDS: NS 1,000 ML IV 1,000 ML IV SCH (19:39)
[2024-10-11] MEDS: PULMICORT NEB TX 0.5 MG NEB SCH (19:49)
[2024-10-11] MEDS: XOPENEX 1.25 MG/3 ML NEBULE NEB SCH (19:49)
[2024-10-11] MEDS ORDERED: ZANAFLEX PO PRN (20:36)
[2024-10-11] MEDS ORDERED: LASIX PO PRN (20:36)
[2024-10-11] MEDS: SNACK - Diabetic Appropriate PO SCH (20:51)
[2024-10-11] MEDS: BUSPAR PO SCH (21:33)
[2024-10-11] MEDS: MIRAPEX TAB 0.25 MG PO SCH (21:34)
[2024-10-11] MEDS: NEURONTIN TAB 600 MG PO SCH (21:34)
[2024-10-11] MEDS: FIORICET TAB PO PRN (23:06)
[2024-10-11] MEDS: ZETIA TAB 10 MG PO SCH (23:07)
[2024-10-12] MEDS: ZOFRAN ODT PO PRN (05:46)
[2024-10-12] MEDS: SYNTHROID 175 mcg TAB PO SCH (05:47)
[2024-10-12] MEDS: AMARYL TAB 4 MG PO SCH (06:02)
--- NOTE | 2024-10-12 06:11 | RAD ---
EXAM: CHEST, 1 VIEW HISTORY: copd, chf; COMPARISON: 10/10/2024 TECHNIQUE: AP FINDINGS: Median sternotomy wires. Stable prominent cardiac silhouette, accentuated by AP technique. Chronic mildly prominent interstitial lung markings. No focal consolidation, pleural effusion, or visible pneumothorax. IMPRESSION: No acute cardiopulmonary findings. THIS IS AN ELECTRONICALLY VERIFIED FINAL REPORT 10/12/2024 6:07 AM - Electronically signed by Pipe Greene MD
[2024-10-12 06:26] LABS: MEAN PLATELET VOLUME 7.7 fL (7.4-11.0); RED CELL DISTRIBUTION WIDTH 15.5 % (11.6-16.5)
[2024-10-12 06:40] LABS: COR NA(FOR HYPERGLY) 138 mmol/L (136-145); CREATININE 1.64 mg/dL (0.55-1.02); eGFR NON BLACK RACES 34 (>60)
[2024-10-12] MEDS: PULMICORT NEB TX 0.5 MG NEB ONE (07:28)
[2024-10-12] MEDS: XOPENEX 1.25 MG/3 ML NEBULE NEB ONE (07:28)
[2024-10-12] MEDS: ALDACTONE TAB 25 MG PO SCH (09:31)
[2024-10-12] MEDS: ASPIRIN PO SCH (09:31)
[2024-10-12] MEDS: NORVASC TAB 10 MG PO SCH (09:31)
[2024-10-12] MEDS: NORCO 7.5/325 MG TAB PO PRN (09:32)
[2024-10-12] MEDS: FOLIC ACID TAB 1 MG PO SCH (09:32)
[2024-10-12] MEDS: CYMBALTA PO SCH (09:32)
[2024-10-12] MEDS: PEPCID TAB 20 MG PO PRN (09:37)
[2024-10-12] MEDS: PHARMACY CONSULT XX SCH (10:16)
[2024-10-12] MEDS: NovoLIN R (or HumuLIN R) SUBCUT PRN (12:42)
[2024-10-12] MEDS: LOVENOX INJ 40 MG SYR SC SCH (12:42)
--- NOTE | 2024-10-12 14:10 | CT ---
EXAMINATION: ABDCMEN/PELVIS WITH CON HISTORY: UTI, ABD PAIN, BACK PAIN; COMPARISON: CT abdomen 05/17/2024 TECHNIQUE: Contiguous axial CT images abdomen and pelvis following intravenous contrast. Images reviewed in the axial imaging plane with reformatted sagittal and coronal images.The above CT scan was done with automated exposure control and the mA and kV was adjusted to obtain quality images according to patient size. FINDINGS: The liver measures 24 by 17 by 17 cm. Homogeneous enhancement of the liver. Cholecystectomy. No bile duct dilatation. Pancreas, spleen, adrenal glands appear intact. Scattered arterial vascular calcifications of the abdominal aorta and branch vessels. Kidneys normal size and position. No hydronephrosis. Details of the GI tract are limited since oral contrast was not used. Generally the small and large bowels are normal caliber. Scattered colonic diverticuli. No evidence of acute appendicitis. No ascites. Stomach is empty. Urinary bladder mildly distended with urine. Uterus appears intact. 1.9 x 2 cm mass central density minus 2 Hounsfield units left adnexa probable ovarian cyst which may be followed up with pelvic ultrasound. Osseous structures appear intact. Images through lower chest demonstrate patchy infiltrates in the inferior lower lobes. IMPRESSION: Mild hepatomegaly. Cholecystectomy Scattered arterial vascular calcifications Probable 2 cm left ovarian cyst which may be followed up with transabdominal and transvaginal ultrasound of the pelvis. THIS IS AN ELECTRONICALLY VERIFIED FINAL REPORT 10/12/2024 2:07 PM - Electronically signed by Cynthia Giordano MD
[2024-10-12] MEDS: OMNIPAQUE 350 mg/mL 100 mL BTL 100 ML ONE (15:15)
[2024-10-12] MEDS ORDERED: SNACK - Diabetic Appropriate PO SCH (20:00)
[2024-10-12] MEDS ORDERED: INVanz INJ 1 GRAM VIAL 0.5 G in NS 100 ML IV 100 ML IV SCH (21:00)
[2024-10-12] MEDS: INVanz INJ 1 GRAM VIAL 0.5 G in NS 50 ML IV 50 ML IV SCH (21:15)
[2024-10-13 07:01] LABS: COR CA(FOR HYPOALB) 10.1 mg/dL (8.5-10.1); COR NA(FOR HYPERGLY) 140 mmol/L (136-145); CREATININE 1.14 mg/dL (0.55-1.02); eGFR NON BLACK RACES 51 (>60)
[2024-10-13 07:02] LABS: MEAN PLATELET VOLUME 7.8 fL (7.4-11.0); RED CELL DISTRIBUTION WIDTH 15.7 % (11.6-16.5)
[2024-10-13] MEDS: STERILE WATER IRRIGATION IR ONE (10:18)
[2024-10-13] MEDS: TORADOL 15 MG VIAL IVP PRN (13:02)
[2024-10-13] MEDS: MAALOX or MYLANTA PO PRN (17:30)
[2024-10-13] MEDS: MILK OF MAGNESIA PO PRN (21:57)
[2024-10-13] MEDS: COLACE CAP 100 MG PO PRN (21:57)
[2024-10-14 06:54] LABS: MEAN PLATELET VOLUME 7.8 fL (7.4-11.0); RED CELL DISTRIBUTION WIDTH 15.7 % (11.6-16.5)
[2024-10-14 06:59] LABS: COR CA(FOR HYPOALB) 10.2 mg/dL (8.5-10.1); COR NA(FOR HYPERGLY) 140 mmol/L (136-145); CREATININE 1.15 mg/dL (0.55-1.02); eGFR NON BLACK RACES 51 (>60)
[2024-10-14] MEDS: LEVSIN/MAALOX/LIDOC VISC PO PRN (10:47)
[2024-10-14] MEDS: MOBIC TAB 15 MG PO SCH (10:47)
[2024-10-15 05:42] LABS: MEAN PLATELET VOLUME 7.5 fL (7.4-11.0); RED CELL DISTRIBUTION WIDTH 15.3 % (11.6-16.5)
[2024-10-15 05:58] LABS: COR CA(FOR HYPOALB) 10.2 mg/dL (8.5-10.1); COR NA(FOR HYPERGLY) 140 mmol/L (136-145); CREATININE 0.86 mg/dL (0.55-1.02); eGFR NON BLACK RACES > 60 (>60)
[2024-10-15] MEDS ORDERED: XYLOCAINE 1 % (PLAIN) ONE (09:06)
[2024-10-15] MEDS: PROTONIX TAB 40 MG PO SCH (09:51)
--- NOTE | 2024-10-15 10:10 | RAD ---
EXAM: CHEST, 1 VIEW HISTORY: PICC LINE PLACEMENT ; COMPARISON: Prior study or studies were utilized for comparison during interpretation with the most relevant dated 10/11/2024 TECHNIQUE: CHEST, 1 VIEW FINDINGS: Chest: Lines and tubes: Left upper extremity PICC terminates in the innominate vein. Mediastinum: Cardiac and mediastinal shadow is within normal limits for size and contour. Pulmonary vessels: There is pulmonary vascular congestion. Lung gamez: Patchy opacities are seen Pleura: No effusion. No pneumothorax. Bones and soft tissues: No acute osseous or soft tissue abnormality. IMPRESSION: 1. PICC is short, terminating in the innominate vein 2. Findings suggest increased volume status THIS IS AN ELECTRONICALLY VERIFIED FINAL REPORT 10/15/2024 10:07 AM - Electronically signed by Dk Pepper MD
--- NOTE | 2024-10-15 10:18 | DR.UPDATE ---
H&P Update Prescription drug monitoring program results: PDMP was not reviewed H&P Reviewed: Yes Any changes to H&P?: No Patient was examined?: Yes Vital Signs: Temp Pulse Pulse Pulse Resp BP Pulse Ox 10/15/24 06:59 16 10/15/24 06:02 16 10/15/24 03:51 98.1 F 80 18 135/64 95 10/15/24 00:00 98.0 F 76 18 121/58 93 L 10/14/24 23:45 10/14/24 20:00 98.0 F 75 20 133/62 94 L 10/14/24 19:00 10/14/24 17:08 84 94 L 10/14/24 16:00 98.2 F 81 19 124/67 94 L 10/14/24 11:59 98.2 F 67 20 114/56 92 L 10/14/24 11:47 18 10/14/24 10:47 18 10/14/24 08:56 76 93 L 10/14/24 08:56 18 10/14/24 08:37 20 10/14/24 08:07 18 10/14/24 08:00 98.5 F 74 19 124/60 92 L 10/14/24 07:00 10/14/24 03:48 98.1 F 70 18 134/63 93 L 10/14/24 00:23 18 10/13/24 23:53 22 10/13/24 23:46 98.2 F 78 18 121/58 95 10/13/24 22:58 16 10/13/24 21:58 18 10/13/24 20:33 78 93 L 10/13/24 20:33 10/13/24 19:58 97.6 F 73 18 113/56 95 10/13/24 19:00 10/13/24 16:59 89 91 L 10/13/24 16:49 20 10/13/24 16:00 97.9 F 78 20 117/55 91 L 10/13/24 13:02 20 10/13/24 13:02 20 10/13/24 12:09 80 88 L 10/13/24 12:00 98.1 F 75 20 116/57 90 L 10/13/24 10:25 20 10/13/24 08:55 80 88 L 10/13/24 08:55 10/13/24 08:00 98.1 F 96 H 20 121/58 91 L 10/13/24 07:00 10/13/24 05:25 18 10/13/24 04:25 20 10/13/24 03:50 97.6 F 85 20 126/58 92 L 10/13/24 00:30 10/13/24 00:00 98.1 F 86 21 121/55 90 L 10/12/24 21:07 97 H 91 L 10/12/24 21:05 10/12/24 20:00 98.0 F 88 21 134/63 91 L 10/12/24 19:09 19 10/12/24 19:00 10/12/24 18:09 22 10/12/24 16:25 79 90 L 10/12/24 16:00 97.8 F 91 H 22 118/59 92 L 10/12/24 13:15 79 90 L 10/12/24 12:00 98.0 F 86 22 114/55 94 L 10/12/24 10:32 19 O2 Del Method O2 Flow Rate FiO2 10/15/24 06:59 10/15/24 06:02 10/15/24 03:51 Nasal Cannula 2 10/15/24 00:00 Nasal Cannula 2 10/14/24 23:45 CPAP 2 28 10/14/24 20:00 Nasal Cannula 2 10/14/24 19:00 Nasal Cannula 2.5 10/14/24 17:08 10/14/24 16:00 Nasal Cannula 2 10/14/24 11:59 Nasal Cannula 2 10/14/24 11:47 10/14/24 10:47 10/14/24 08:56 10/14/24 08:56 Nasal Cannula 2 28 10/14/24 08:37 10/14/24 08:07 10/14/24 08:00 Nasal Cannula 2 10/14/24 07:00 Nasal Cannula 2.5 10/14/24 03:48 Room Air 10/14/24 00:23 10/13/24 23:53 10/13/24 23:46 Room Air 10/13/24 22:58 10/13/24 21:58 10/13/24 20:33 10/13/24 20:33 Nasal Cannula 3 32 10/13/24 19:58 Room Air 10/13/24 19:00 Nasal Cannula 2.5 10/13/24 16:59 10/13/24 16:49 10/13/24 16:00 Nasal Cannula 2.5 10/13/24 13:02 10/13/24 13:02 10/13/24 12:09 10/13/24 12:00 Nasal Cannula 2.5 10/13/24 10:25 10/13/24 08:55 10/13/24 08:55 Nasal Cannula 3 32 10/13/24 08:00 Nasal Cannula 2.5 10/13/24 07:00 Nasal Cannula 2.5 10/13/24 05:25 10/13/24 04:25 10/13/24 03:50 CPAP 10/13/24 00:30 CPAP 3 32 10/13/24 00:00 CPAP 10/12/24 21:07 10/12/24 21:05 Nasal Cannula 3 32 10/12/24 20:00 Nasal Cannula 2.5 10/12/24 19:09 10/12/24 19:00 Nasal Cannula 2 10/12/24 18:09 10/12/24 16:25 10/12/24 16:00 Nasal Cannula 2 10/12/24 13:15 10/12/24 12:00 Nasal Cannula 2 10/12/24 10:32 Procedures (ALL) - Central Line Placement PCM.CLCO: written consent Time out performed: Yes Patient placed pm monitor/pulse ox: Yes MD prep: mask, gown, gloves, other Centrial line prep: chlorhexidine scrub, sterile drapes applied Local anesthsia used: lidocane 1% Ultrasound used for placement: Yes (right side evaluated, no good candidates. left basilic id'd; brachial small) Central line lumen ininserted: double (5.5fr arrowgard, trimmed to 45cm.) Post procedure: good blood return, all ports aspirated, flushed,capped, sterile dressing applied Post procedure xray: tip oc catheter in good position (innominate termination. had trimmed anticipating a more proximal insertion. was forced more distally on 2nd attempt. innominate termination. pcp notified.), no pneumothorax seen Patient tolerated procedure: Yes Complications: none
[2024-10-15 10:25] VITALS: RESP 18; O2SAT 96
[2024-10-15 12:33] VITALS: BP 131/62; PULSE 75; TEMP 98.2
[2024-10-15] MEDS ORDERED: INVanz INJ 1 GRAM VIAL 0.5 G in NS 50 ML IV 50 ML IV SCH (15:00)
[2024-10-15] MEDS: INVanz INJ 1 GRAM VIAL 1 G in NS 100 ML IV 100 ML IV SCH (15:10)
== END 2024-10-15 15:15 | disposition home health service (06) ==
LOC: MED/SURG
PROVIDERS: ADMIT Internal Medicine; ATTEND Internal Medicine
DX: N83.292 Other ovarian cyst, left side; E87.1 Hypo-osmolality and hyponatremia; J44.9 Chronic obstructive pulmonary disease, unspecified; R53.1 Weakness; Z87.440 Personal history of urinary (tract) infections; E11.65 Type 2 diabetes mellitus with hyperglycemia; N39.0 Urinary tract infection, site not specified; Z16.29 Resistance to other single specified antibiotic; R06.02 Shortness of breath; M19.90 Unspecified osteoarthritis, unspecified site; Z99.81 Dependence on supplemental oxygen; R26.89 Other abnormalities of gait and mobility; E03.8 Other specified hypothyroidism; K21.9 Gastro-esophageal reflux disease without esophagitis; Z16.23 Resistance to quinolones and fluoroquinolones; B96.29 Other Escherichia coli [E. coli] as the cause of diseases classified elsewhere; E78.5 Hyperlipidemia, unspecified; R78.81 Bacteremia; N18.9 Chronic kidney disease, unspecified; Z16.12 Extended spectrum beta lactamase (ESBL) resistance; I12.9 Hypertensive chronic kidney disease with stage 1 through stage 4 chronic kidney disease, or unspecified chronic kidney disease; I25.810 Atherosclerosis of coronary artery bypass graft(s) without angina pectoris; I87.2 Venous insufficiency (chronic) (peripheral); Z86.79 Personal history of other diseases of the circulatory system; Z95.2 Presence of prosthetic heart valve

== ENCOUNTER 2025-02-01 12:14 | Observation (INO) ==
--- NOTE | 2025-02-01 12:59 | DR.H&P ---
H&P History & Physical for Day of: H&P Date: 02/01/25 Chief Complaint Chief Complaint: fever, UTI, weakness and increased sob History of Present Illness History of Present Illness: PT IS 64 WF, DIRECT ADMIT AFTER PRESENTING WITH CO FEVER, INCREASED SOB AND WEAKNESS. PT CO "HURTING ALL OVER" N/V/D. PT HAD UTI IN OFFICE ON 01/24 AND STARTED ON PO ANTIBIOTICS. UC + MULTI DRUG RESISTANT [facility]I. PT HAS BEEN UNDER THE CARE OF DR NEWELL, UROLOGY AT [facility]. PT HAS PMH OF DM, CAD, COPD, CHF, CKD AND OA. PT ADMITTED FOR EVALUATION AND TREATMENT OF ACUTE ILLNESS. Past Medical History Past Medical History: CHF, COPD, Depression, Diabetes, Dyslipidemia, GERD, Hypertension and Hypothyroidism Past Surgical History Surgical History: Appendectomy, , Hysterectomy, Ortho Surgery and Tonsillectomy Family History Family Medical History: Diabetes Mellitus, Cancer, Coronary Artery Disease, Heart Failure, Sudden Cardiac and Hypertension Medications Home Medications: Home Medications Medication Instructions Recorded Confirmed Type duloxetine 60 mg capsule,delayed 60 mg PO QDAY 4 10/11/24 History release famotidine 20 mg tablet 20 mg PO BID 01/01/24 History gabapentin 600 mg tablet 600 mg PO TID 01/01/2410/11 History spironolactone 50 mg tablet 50 mg PO QDAY 01/01/24 History ezetimibe 10 mg tablet 10 mg PO HS 01/02/24 5 History fluticasone fur. 200 mcg-umeclid 1 inh inhalation DUNG Y 01/02/24 10/11/24 History 62.5 mcg-vilant 25 mcg inhalat.powder (Trelegy Ellipta) dnkhaolqzh-xrplwvjsfnyqj-ntvsssds 325 tab PO Q4-6H PRN 05/15/24 10/11/24 History 50 mg-325 mg-40 mg tablet furosemide 40 mg tablet 40 mg PO DAILY PRN 05/15/24 10/11/24 History glimepiride 4 mg tablet 4 mg PO BID 05/15/24 5 History amlodipine 10 mg tablet 10 mg PO QDAY 10/10/2410/11 History buspirone 5 mg tablet 5 mg PO BID 10/10/24 5 History folic acid 1 mg tablet 1 mg PO QDAY 10/10/24 History hydrocodone 7.5 mg-acetaminophen 1 tab PO QID PRN 09/1910/11/24 History 325 mg tablet levothyroxine 175 mcg tablet 175 mcg PO QDAY 10/10/24 10/11/24 History pramipexole 0.5 mg tablet 0.5 mg PO TID 10/10/2410/11 History tizanidine 4 mg tablet 4 mg PO Q8H PRN 10/10/24 History aspirin 325 mg tablet 325 mg PO DAILY 10/11/24 History ondansetron 8 mg disintegrating 8 mg PO Q8H 10/11/24 0 10/11/24 History tablet insulin degludec 100 unit/mL 35 unit subcut BID 02/01/25 History subcutaneous solution (Tresiba U-100 Insulin) Allergies Allergies Allergy/AdvReac Type Severity Reaction Status Date / Time tetracycline Allergy Unknown Verified 10/10/24 20:46 Review of Systems Constitutional: Fever, Chills, Weakness and Malaise Eyes: No Symptoms Reported ENT: No Symptoms Reported Respiratory: Shortness of Breath Cardiovascular: No Symptoms Reported Gastrointestinal: Nausea, Vomiting and Diarrhea Genitourinary: Dysuria and Frequency Musculoskeletal: Back Pain and Leg Pain Skin: No Symptoms Reported Neurological: Weakness Oriented: Normal Eyes: Normal Ear: Normal Nose: Normal Throat: Dry Respiratory: RLL Diminished and LLL Diminished Cardiovascular: Tachycardia : Dysuria and Frequency Auscultation: Bowel Sounds: Normal Palpation: Normal Tenderness: Suprapubic Skin: Decreased Turgur Musculoskeletal: Motor Deficit and Sensory Deficit Psychiatric: Anxiety Mood Description: Anxious Speech Pattern: Clear and Appropriate Assessment/Plan (1) Urinary tract bacterial infections: Status: Acute Plan: ADMIT, SEE UC SCANNED TO CHART BC, REPEAT UA, UC ON ADMISSION IV HYDRATION, IV ATBX, CXR, VERIFY HOME MEDICATIONS PAIN CONTROL, ELECTROLYTE REPLACEMENT THERAPY BP AND BS CONTROL, RESP CONSULT, PRN SUPPLEMENTAL O2 (2) S/P CABG x 2: Status: Acute (3) CHF (congestive heart failure): Status: Acute (4) CAD (coronary artery disease): Status: Acute (5) Diabetes 1.5, managed as type 2: Status: Chronic
[2025-02-01] MEDS ORDERED: PHARMACY CONSULT - MEROPENEM XX SCH (13:00)
[2025-02-01 13:25] LABS: MEAN PLATELET VOLUME 7.9 fL (7.4-11.0); RED CELL DISTRIBUTION WIDTH 16.6 % (11.6-16.5)
[2025-02-01 13:40] LABS: COR CA(FOR HYPOALB) 9.9 mg/dL (8.5-10.1); COR NA(FOR HYPERGLY) 142.0 mmol/L (136-145); CREATININE 1.54 mg/dL (0.55-1.02); eGFR NON BLACK RACES 36.0 (>60)
[2025-02-01 13:41] VITALS: BMI 31.6
[2025-02-01] MEDS: DUONEB 0.5 MG/3 MG (3 mL) NEB SCH (14:09)
--- NOTE | 2025-02-01 14:14 | RAD ---
EXAM: CHEST, PA/LAT ADULT HISTORY: SOB, CHF, AND COPD; COMPARISON: No relevant prior studies were available for comparison at the time of interpretation. TECHNIQUE: CHEST, PA/LAT ADULT FINDINGS: Chest: Lines and tubes: None Mediastinum: Cardiac and mediastinal shadow is within normal limits for size and contour. Pulmonary vessels: No pulmonary vascular congestion. Lung gamez: No suspicious airspace opacity. Pleura: No effusion. No pneumothorax. Bones and soft tissues: No acute osseous or soft tissue abnormality. IMPRESSION: 1. No acute cardiopulmonary abnormality THIS IS AN ELECTRONICALLY VERIFIED FINAL REPORT 02/01/2025 2:11 PM - Electronically signed by Dk Pepper MD
[2025-02-01] MEDS: MIRAPEX TAB 0.25 MG PO SCH (14:53)
[2025-02-01] MEDS: NORCO 7.5/325 MG TAB PO PRN (14:53)
[2025-02-01] MEDS: LOVENOX INJ 40 MG SYR SC SCH (14:54)
[2025-02-01] MEDS: MERREM VIAL 1 G in NS 100 ML IV 100 ML IV SCH (14:54)
[2025-02-01] MEDS: NS 1,000 ML IV 1,000 ML IV SCH (14:54)
[2025-02-01] MEDS: ZOFRAN INJ 4 MG VIAL IVP PRN (14:55)
[2025-02-01 15:22] LABS: BLOOD/HEMOGLOBIN,URINE 2+ (NEGATIVE); LEUKOCYTE ESTERASE ,URINE 1+ (NEGATIVE); NITRITES,URINE NEGATIVE (NEGATIVE)
[2025-02-01 15:38] LABS: APPEARANCE,URINE HAZY (CLEAR); SQUAMOUS EPITHELIAL CELL,UR RARE /HPF (NEGATIVE)
[2025-02-01 15:39] LABS: HYALINE CASTS, URINE RARE /LPF (NEGATIVE)
[2025-02-01] MEDS: NovoLIN R (or HumuLIN R) SUBCUT PRN (16:31)
--- NOTE | 2025-02-01 17:03 | RAD ---
EXAM: CHEST, 1 VIEW HISTORY: PICC LINE PLACEMENT; COMPARISON: February 01, 2025 at 2:45 p.m. TECHNIQUE: Chest radiographic imaging, AP portable projection, 1 image FINDINGS: No cardiomegaly. Status post median sternotomy. Diffuse increased interstitial markings. No focal airspace disease. No pleural effusion. No pneumothorax. No acute osseous abnormality. Interval placement of a left PICC with tip near the cavoatrial junction. IMPRESSION: 1. No significant interval acute cardiopulmonary changes. 2. Interval placement of a left PICC with tip near the cavoatrial junction. THIS IS AN ELECTRONICALLY VERIFIED FINAL REPORT 02/01/2025 5:00 PM - Electronically signed by Morgan Hu MD
[2025-02-01] MEDS: PULMICORT NEB TX 0.5 MG NEB SCH (20:21)
[2025-02-01] MEDS: ZETIA TAB 10 MG PO SCH (20:43)
[2025-02-01] MEDS: ZOFRAN TAB 4 MG SL PRN (20:44)
[2025-02-02] MEDS: MAALOX or MYLANTA PO PRN (05:10)
[2025-02-02 05:36] LABS: MEAN PLATELET VOLUME 8.0 fL (7.4-11.0); RED CELL DISTRIBUTION WIDTH 16.6 % (11.6-16.5)
[2025-02-02 05:44] LABS: COR CA(FOR HYPOALB) 9.8 mg/dL (8.5-10.1); COR NA(FOR HYPERGLY) 141 mmol/L (136-145); CREATININE 1.10 mg/dL (0.55-1.02); eGFR NON BLACK RACES 53 (>60)
[2025-02-02] MEDS: PROTONIX INJ 40 MG VIAL IVP SCH (08:37)
[2025-02-02] MEDS: SYNTHROID 175 mcg TAB PO SCH (08:37)
[2025-02-02] MEDS: CYMBALTA PO SCH (08:37)
[2025-02-02] MEDS: K-DUR TAB 20 MEQ PO SCH (08:37)
[2025-02-02] MEDS: MAG-OX TAB PO SCH (08:37)
[2025-02-02] MEDS ORDERED: PATIENT'S HOME MEDICATION (Fluticasone-Umeclidin-Vilanter [Trelegy Ellipta] 200-62.5-25 mc IN SCH (09:00)
[2025-02-02] MEDS: STERILE WATER IRRIGATION IR ONE (09:44)
[2025-02-02] MEDS: SNACK - Diabetic Appropriate PO SCH (09:44)
[2025-02-02] MEDS: ULTRAM PO PRN (16:18)
[2025-02-02] MEDS: ROBITUSSIN DM PO PRN (20:13)
[2025-02-03] MEDS: COLACE CAP 100 MG PO SCH (02:15)
[2025-02-03 05:00] LABS: MEAN PLATELET VOLUME 7.9 fL (7.4-11.0); RED CELL DISTRIBUTION WIDTH 16.1 % (11.6-16.5)
[2025-02-03 05:11] LABS: COR CA(FOR HYPOALB) 9.9 mg/dL (8.5-10.1); COR NA(FOR HYPERGLY) 141 mmol/L (136-145); CREATININE 0.86 mg/dL (0.55-1.02); eGFR NON BLACK RACES > 60 (>60)
[2025-02-03] MEDS ORDERED: MIRAPEX TAB 0.25 MG PO PRN (10:51)
[2025-02-03] MEDS ORDERED: ZOFRAN TAB 4 MG PO PRN (11:44)
[2025-02-03] MEDS: ASPIRIN EC 81 MG PO SCH (11:47)
[2025-02-03] MEDS: BUSPAR PO SCH (11:47)
[2025-02-03] MEDS: NEURONTIN TAB 600 MG PO SCH (13:49)
[2025-02-03] MEDS: PATIENT'S HOME MEDICATION (Aspirin 81 mg Tablet) PO SCH (18:37)
[2025-02-03] MEDS: CONSULT PHARMACY - POTASSIUM & MAGNESIUM XX SCH (19:56)
[2025-02-03] MEDS: PULMICORT NEB TX 0.5 MG NEB ONE (19:56)
[2025-02-03] MEDS: TRESIBA U-100 INSULIN SC SCH (21:15)
[2025-02-04 05:02] LABS: MEAN PLATELET VOLUME 7.7 fL (7.4-11.0); RED CELL DISTRIBUTION WIDTH 16.6 % (11.6-16.5)
[2025-02-04 05:10] LABS: COR CA(FOR HYPOALB) 10.4 mg/dL (8.5-10.1); COR NA(FOR HYPERGLY) 142 mmol/L (136-145); CREATININE 0.86 mg/dL (0.55-1.02); eGFR NON BLACK RACES > 60 (>60)
[2025-02-04 08:27] VITALS: RESP 20
[2025-02-04] MEDS: LASIX IVP ONE (08:47)
[2025-02-04 10:00] VITALS: O2SAT 95
--- NOTE | 2025-02-04 10:36 | DR.UPDATE ---
H&P Update Prescription drug monitoring program results: PDMP was not reviewed H&P Reviewed: Yes Any changes to H&P?: No Patient was examined?: Yes Vital Signs: Temp Pulse Pulse Resp BP BP Pulse Ox 02/04/25 09:34 80 95 02/04/25 09:34 02/04/25 08:00 97.9 F 82 20 121/57 94 L 02/04/25 07:00 02/04/25 05:30 02/04/25 04:57 02/04/25 04:00 98.2 F 71 18 107/62 92 L 02/03/25 23:54 98.0 F 67 20 112/54 95 02/03/25 23:15 02/03/25 21:33 20 02/03/25 20:33 20 02/03/25 20:28 68 97 02/03/25 20:28 02/03/25 19:53 98.4 F 83 20 123/59 94 L 02/03/25 19:00 02/03/25 16:15 66 23 93 L 02/03/25 16:00 138/61 02/03/25 16:00 72 15 95 02/03/25 15:45 70 20 95 02/03/25 15:30 70 19 94 L 02/03/25 15:15 72 22 94 L 02/03/25 15:01 114/55 02/03/25 15:01 76 20 93 L 02/03/25 15:00 75 23 93 L 02/03/25 14:45 69 18 92 L 02/03/25 14:30 73 19 92 L 02/03/25 14:15 77 23 93 L 02/03/25 14:01 133/61 02/03/25 14:01 74 21 91 L 02/03/25 14:00 72 22 91 L 02/03/25 13:45 75 19 92 L 02/03/25 13:30 74 16 90 L 02/03/25 13:15 79 21 91 L 02/03/25 13:01 129/59 02/03/25 13:01 80 17 92 L 02/03/25 13:00 97.8 F 86 21 92 L 02/03/25 12:45 87 24 92 L 02/03/25 12:30 72 17 89 L 02/03/25 12:15 76 19 98 02/03/25 12:01 72 18 98 02/03/25 12:01 136/64 02/03/25 12:00 98.0 F 71 21 99 02/03/25 11:45 73 11 L 94 L 02/03/25 11:41 94 H 89 L 02/03/25 11:15 73 19 93 L 02/03/25 11:00 112/56 02/03/25 11:00 74 18 91 L 02/03/25 10:45 78 21 92 L 02/03/25 10:30 68 17 90 L 02/03/25 10:15 71 17 88 L 02/03/25 10:00 76 13 90 L 02/03/25 10:00 109/53 02/03/25 09:45 77 18 90 L 02/03/25 09:30 70 21 99 02/03/25 09:15 69 15 100 02/03/25 09:12 02/03/25 09:00 127/56 02/03/25 09:00 69 15 95 02/03/25 08:45 63 16 93 L 02/03/25 08:30 64 16 96 02/03/25 08:15 61 17 94 L 02/03/25 08:00 98.2 F 114/58 02/03/25 08:00 69 14 95 02/03/25 07:45 77 17 93 L 02/03/25 07:30 73 17 95 02/03/25 07:15 74 18 96 02/03/25 07:00 02/03/25 07:00 64 18 92 L 02/03/25 07:00 96/53 02/03/25 06:45 60 15 93 L 02/03/25 06:30 62 15 93 L 02/03/25 06:15 61 16 91 L 02/03/25 06:00 107/54 02/03/25 06:00 63 18 89 L 02/03/25 06:00 63 16 107/54 90 L 02/03/25 05:49 77 81 L 02/03/25 05:15 67 17 95 02/03/25 05:00 111/55 02/03/25 05:00 64 15 94 L 02/03/25 05:00 60 18 111/55 93 L 02/03/25 04:45 65 16 94 L 02/03/25 04:30 65 16 92 L 02/03/25 04:27 02/03/25 04:15 72 16 92 L 02/03/25 04:11 24 02/03/25 04:00 113/54 02/03/25 04:00 68 17 91 L 02/03/25 04:00 98.2 F 68 18 113/54 91 L 02/03/25 03:45 67 16 90 L 02/03/25 03:30 71 21 91 L 02/03/25 03:15 70 22 87 L 02/03/25 03:11 24 02/03/25 03:00 125/61 02/03/25 03:00 69 17 93 L 02/03/25 03:00 80 23 125/61 91 L 02/03/25 02:45 66 17 93 L 02/03/25 02:30 70 15 93 L 02/03/25 02:15 63 17 92 L 02/03/25 02:00 112/56 02/03/25 02:00 64 16 91 L 02/03/25 02:00 66 18 112/56 91 L 02/03/25 01:45 76 18 92 L 02/03/25 01:30 66 17 93 L 02/03/25 01:15 75 21 95 02/03/25 01:00 108/54 02/03/25 01:00 67 15 94 L 02/03/25 01:00 76 20 108/54 95 02/03/25 00:45 71 18 95 02/03/25 00:30 65 16 94 L 02/03/25 00:15 71 16 92 L 02/03/25 00:02 02/03/25 00:00 149/66 02/03/25 00:00 72 19 94 L 02/03/25 00:00 98.2 F 65 16 149/66 92 L 02/02/25 23:45 72 17 95 02/02/25 23:30 70 19 93 L 02/02/25 23:15 75 12 94 L 02/02/25 23:00 108/55 02/02/25 23:00 66 14 91 L 02/02/25 23:00 98.3 F 70 18 108/55 93 L 02/02/25 22:45 68 19 90 L 02/02/25 22:30 69 18 84 L 02/02/25 22:30 02/02/25 22:15 80 27 H 89 L 02/02/25 22:00 75 20 94 L 02/02/25 22:00 124/58 02/02/25 22:00 72 26 H 124/58 91 L 02/02/25 21:45 71 17 92 L 02/02/25 21:30 75 21 91 L 02/02/25 21:15 74 21 92 L 02/02/25 21:00 115/57 02/02/25 21:00 72 18 115/54 92 L 02/02/25 20:10 82 97 02/02/25 20:10 02/02/25 20:00 63 18 118/58 92 L 02/02/25 19:00 98.1 F 64 18 128/60 92 L 02/02/25 19:00 02/02/25 18:00 104/55 02/02/25 17:45 92 H 22 90 L 02/02/25 17:30 75 19 91 L 02/02/25 17:18 20 02/02/25 17:15 73 22 89 L 02/02/25 17:00 113/55 02/02/25 17:00 76 19 88 L 02/02/25 16:45 82 19 90 L 02/02/25 16:30 76 21 98 02/02/25 16:18 20 02/02/25 16:15 69 19 92 L 02/02/25 16:00 110/57 02/02/25 16:00 75 19 94 L 02/02/25 15:45 78 20 94 L 02/02/25 15:30 73 18 92 L 02/02/25 15:15 74 21 95 02/02/25 15:00 97.7 F 120/59 02/02/25 15:00 79 21 95 02/02/25 14:45 76 20 94 L 02/02/25 14:30 78 21 92 L 02/02/25 14:20 20 02/02/25 14:15 78 19 92 L 02/02/25 14:00 77 20 90 L 02/02/25 14:00 110/53 02/02/25 13:45 80 21 90 L 02/02/25 13:30 80 21 91 L 02/02/25 13:20 20 02/02/25 13:15 82 22 92 L 02/02/25 13:00 122/58 02/02/25 13:00 94 H 17 93 L 02/02/25 13:00 94 H 17 93 L 02/02/25 12:45 96 H 22 94 L 02/02/25 12:30 98.2 F 98 H 95 02/02/25 12:15 88 21 93 L 02/02/25 12:00 122/58 02/02/25 12:00 80 24 99 02/02/25 11:45 78 19 91 L 02/02/25 11:30 79 20 91 L 02/02/25 11:15 82 23 90 L 02/02/25 11:00 133/58 02/02/25 11:00 85 25 H 92 L 02/02/25 10:45 82 19 91 L 02/02/25 10:30 82 21 87 L 02/02/25 10:15 84 22 88 L 02/02/25 10:00 120/58 02/02/25 10:00 83 21 87 L 02/02/25 09:45 86 19 91 L 02/02/25 09:30 93 H 39 H 93 L 02/02/25 09:15 94 H 22 95 02/02/25 09:15 02/02/25 09:00 115/56 02/02/25 09:00 81 22 97 02/02/25 08:45 80 22 89 L 02/02/25 08:37 88 95 02/02/25 08:30 84 23 90 L 02/02/25 08:15 83 22 91 L 02/02/25 08:00 98.0 F 125/58 02/02/25 08:00 84 19 92 L 02/02/25 07:45 93 H 19 93 L 02/02/25 07:30 91 H 19 96 02/02/25 07:15 84 21 93 L 02/02/25 07:00 02/02/25 07:00 122/58 02/02/25 07:00 84 21 92 L 02/02/25 06:45 85 22 92 L 02/02/25 06:30 91 H 22 93 L 02/02/25 06:15 92 H 25 H 91 L 02/02/25 06:00 87 22 81 L 02/02/25 06:00 115/54 02/02/25 06:00 02/02/25 06:00 90 20 115/54 86 L 02/02/25 05:45 91 H 24 82 L 02/02/25 05:30 90 21 92 L 02/02/25 05:15 92 H 23 90 L 02/02/25 05:00 90 21 94 L 02/02/25 05:00 130/61 02/02/25 05:00 90 23 130/61 91 L 02/02/25 04:45 86 20 94 L 02/02/25 04:30 91 H 23 92 L 02/02/25 04:15 85 23 89 L 02/02/25 04:00 126/61 02/02/25 04:00 89 23 94 L 02/02/25 04:00 98.1 F 86 20 126/61 94 L 02/02/25 03:45 85 22 94 L 02/02/25 03:30 92 H 25 H 82 L 02/02/25 03:15 93 H 14 94 L 02/02/25 03:00 136/63 02/02/25 03:00 91 H 24 91 L 02/02/25 03:00 89 30 H 136/63 93 L 02/02/25 02:45 93 H 22 91 L 02/02/25 02:30 90 23 90 L 02/02/25 02:15 90 24 89 L 02/02/25 02:00 124/58 02/02/25 02:00 92 H 24 84 L 02/02/25 02:00 87 30 H 124/58 88 L 02/02/25 01:45 87 20 90 L 02/02/25 01:30 89 20 89 L 02/02/25 01:15 91 H 22 88 L 02/02/25 01:01 141/62 02/02/25 01:01 87 22 90 L 02/02/25 01:00 85 21 88 L 02/02/25 01:00 90 23 141/62 93 L 02/02/25 00:45 81 18 87 L 02/02/25 00:30 86 21 90 L 02/02/25 00:15 86 22 91 L 02/02/25 00:00 125/59 02/02/25 00:00 82 20 89 L 02/02/25 00:00 98.1 F 85 21 125/59 92 L 02/01/25 23:45 80 19 90 L 02/01/25 23:30 83 20 92 L 02/01/25 23:15 81 22 88 L 02/01/25 23:00 86 30 H 93 L 02/01/25 23:00 108/65 02/01/25 23:00 81 20 108/65 93 L 02/01/25 23:00 02/01/25 22:45 80 20 87 L 02/01/25 22:30 80 18 96 02/01/25 22:26 20 02/01/25 22:15 81 20 100 02/01/25 22:00 116/56 02/01/25 22:00 86 22 116/56 92 L 02/01/25 21:26 20 02/01/25 21:00 81 24 134/63 94 L 02/01/25 20:20 71 94 L 02/01/25 20:20 02/01/25 20:00 98.0 F 83 21 114/58 97 02/01/25 19:00 72 17 128/60 92 L 02/01/25 18:01 155/72 02/01/25 18:01 80 24 90 L 02/01/25 18:00 82 24 90 L 02/01/25 17:45 76 21 88 L 02/01/25 17:30 73 19 89 L 02/01/25 17:15 71 21 91 L 02/01/25 17:00 129/63 02/01/25 17:00 74 22 97 02/01/25 16:52 80 95 02/01/25 16:45 72 20 92 L 02/01/25 16:30 72 21 93 L 02/01/25 16:15 73 21 93 L 02/01/25 16:01 126/59 02/01/25 16:01 81 23 92 L 02/01/25 16:00 77 23 88 L 02/01/25 15:53 20 02/01/25 15:45 83 31 H 90 L 02/01/25 15:30 81 21 89 L 02/01/25 15:15 81 17 91 L 02/01/25 15:12 130/59 02/01/25 15:12 81 16 96 02/01/25 15:00 97.9 F 02/01/25 15:00 76 35 H 97 02/01/25 14:53 20 02/01/25 14:45 81 21 96 02/01/25 14:30 77 18 95 02/01/25 14:15 79 14 95 02/01/25 14:00 123/69 02/01/25 14:00 80 20 96 02/01/25 13:45 80 22 95 02/01/25 13:30 81 24 95 02/01/25 13:25 02/01/25 13:23 02/01/25 13:23 98.1 F 85 22 125/59 92 L 02/01/25 13:15 87 21 92 L 02/01/25 13:12 86 26 H 93 L 02/01/25 12:50 98.1 F 85 16 125/59 91 L 02/01/25 12:28 O2 Del Method O2 Flow Rate FiO2 02/04/25 09:34 02/04/25 09:34 Nasal Cannula 2 28 02/04/25 08:00 CPAP 02/04/25 07:00 Nasal Cannula 2 02/04/25 05:30 Nasal Cannula 2 28 02/04/25 04:57 Nasal Cannula 2 28 02/04/25 04:00 CPAP 02/03/25 23:54 CPAP 02/03/25 23:15 Bi-pap 2 28 02/03/25 21:33 02/03/25 20:33 02/03/25 20:28 02/03/25 20:28 Nasal Cannula 2 02/03/25 19:53 Nasal Cannula 2 02/03/25 19:00 Nasal Cannula 2 02/03/25 16:15 02/03/25 16:00 02/03/25 16:00 02/03/25 15:45 02/03/25 15:30 02/03/25 15:15 02/03/25 15:01 02/03/25 15:01 02/03/25 15:00 02/03/25 14:45 02/03/25 14:30 02/03/25 14:15 02/03/25 14:01 02/03/25 14:01 02/03/25 14:00 02/03/25 13:45 02/03/25 13:30 02/03/25 13:15 02/03/25 13:01 02/03/25 13:01 02/03/25 13:00 02/03/25 12:45 02/03/25 12:30 02/03/25 12:15 02/03/25 12:01 02/03/25 12:01 02/03/25 12:00 02/03/25 11:45 02/03/25 11:41 02/03/25 11:15 02/03/25 11:00 02/03/25 11:00 02/03/25 10:45 02/03/25 10:30 02/03/25 10:15 02/03/25 10:00 02/03/25 10:00 02/03/25 09:45 02/03/25 09:30 02/03/25 09:15 02/03/25 09:12 Nasal Cannula 2 28 02/03/25 09:00 02/03/25 09:00 02/03/25 08:45 02/03/25 08:30 02/03/25 08:15 02/03/25 08:00 02/03/25 08:00 02/03/25 07:45 02/03/25 07:30 02/03/25 07:15 02/03/25 07:00 Nasal Cannula 2 02/03/25 07:00 02/03/25 07:00 02/03/25 06:45 02/03/25 06:30 02/03/25 06:15 02/03/25 06:00 02/03/25 06:00 02/03/25 06:00 02/03/25 05:49 02/03/25 05:15 02/03/25 05:00 02/03/25 05:00 02/03/25 05:00 02/03/25 04:45 02/03/25 04:30 02/03/25 04:27 Nasal Cannula 2 28 02/03/25 04:15 02/03/25 04:11 02/03/25 04:00 02/03/25 04:00 02/03/25 04:00 02/03/25 03:45 02/03/25 03:30 02/03/25 03:15 02/03/25 03:11 02/03/25 03:00 02/03/25 03:00 02/03/25 03:00 02/03/25 02:45 02/03/25 02:30 02/03/25 02:15 02/03/25 02:00 02/03/25 02:00 02/03/25 02:00 02/03/25 01:45 02/03/25 01:30 02/03/25 01:15 02/03/25 01:00 02/03/25 01:00 02/03/25 01:00 02/03/25 00:45 02/03/25 00:30 02/03/25 00:15 02/03/25 00:02 Bi-pap 2 28 02/03/25 00:00 02/03/25 00:00 02/03/25 00:00 02/02/25 23:45 02/02/25 23:30 02/02/25 23:15 02/02/25 23:00 02/02/25 23:00 02/02/25 23:00 02/02/25 22:45 02/02/25 22:30 02/02/25 22:30 Nasal Cannula 2 28 02/02/25 22:15 02/02/25 22:00 02/02/25 22:00 02/02/25 22:00 02/02/25 21:45 02/02/25 21:30 02/02/25 21:15 02/02/25 21:00 02/02/25 21:00 02/02/25 20:10 02/02/25 20:10 Nasal Cannula 2 28 02/02/25 20:00 02/02/25 19:00 02/02/25 19:00 Nasal Cannula 2 02/02/25 18:00 02/02/25 17:45 02/02/25 17:30 02/02/25 17:18 02/02/25 17:15 02/02/25 17:00 02/02/25 17:00 02/02/25 16:45 02/02/25 16:30 02/02/25 16:18 02/02/25 16:15 02/02/25 16:00 02/02/25 16:00 02/02/25 15:45 02/02/25 15:30 02/02/25 15:15 02/02/25 15:00 02/02/25 15:00 02/02/25 14:45 02/02/25 14:30 02/02/25 14:20 02/02/25 14:15 02/02/25 14:00 02/02/25 14:00 02/02/25 13:45 02/02/25 13:30 02/02/25 13:20 02/02/25 13:15 02/02/25 13:00 02/02/25 13:00 02/02/25 13:00 02/02/25 12:45 02/02/25 12:30 02/02/25 12:15 02/02/25 12:00 02/02/25 12:00 02/02/25 11:45 02/02/25 11:30 02/02/25 11:15 02/02/25 11:00 02/02/25 11:00 02/02/25 10:45 02/02/25 10:30 02/02/25 10:15 02/02/25 10:00 02/02/25 10:00 02/02/25 09:45 02/02/25 09:30 02/02/25 09:15 02/02/25 09:15 Nasal Cannula 2 28 02/02/25 09:00 02/02/25 09:00 02/02/25 08:45 02/02/25 08:37 02/02/25 08:30 02/02/25 08:15 02/02/25 08:00 02/02/25 08:00 02/02/25 07:45 02/02/25 07:30 02/02/25 07:15 02/02/25 07:00 Nasal Cannula 2 02/02/25 07:00 02/02/25 07:00 02/02/25 06:45 02/02/25 06:30 02/02/25 06:15 02/02/25 06:00 02/02/25 06:00 02/02/25 06:00 Nasal Cannula 2 28 02/02/25 06:00 02/02/25 05:45 02/02/25 05:30 02/02/25 05:15 02/02/25 05:00 02/02/25 05:00 02/02/25 05:00 02/02/25 04:45 02/02/25 04:30 02/02/25 04:15 02/02/25 04:00 02/02/25 04:00 02/02/25 04:00 02/02/25 03:45 02/02/25 03:30 02/02/25 03:15 02/02/25 03:00 02/02/25 03:00 02/02/25 03:00 02/02/25 02:45 02/02/25 02:30 02/02/25 02:15 02/02/25 02:00 02/02/25 02:00 02/02/25 02:00 02/02/25 01:45 02/02/25 01:30 02/02/25 01:15 02/02/25 01:01 02/02/25 01:01 02/02/25 01:00 02/02/25 01:00 02/02/25 00:45 02/02/25 00:30 02/02/25 00:15 02/02/25 00:00 02/02/25 00:00 02/02/25 00:00 02/01/25 23:45 02/01/25 23:30 02/01/25 23:15 02/01/25 23:00 02/01/25 23:00 02/01/25 23:00 02/01/25 23:00 Bi-pap 2 02/01/25 22:45 02/01/25 22:30 02/01/25 22:26 02/01/25 22:15 02/01/25 22:00 02/01/25 22:00 02/01/25 21:26 02/01/25 21:00 02/01/25 20:20 02/01/25 20:20 Nasal Cannula 2 02/01/25 20:00 02/01/25 19:00 02/01/25 18:01 02/01/25 18:01 02/01/25 18:00 02/01/25 17:45 02/01/25 17:30 02/01/25 17:15 02/01/25 17:00 02/01/25 17:00 02/01/25 16:52 02/01/25 16:45 02/01/25 16:30 02/01/25 16:15 02/01/25 16:01 02/01/25 16:01 02/01/25 16:00 02/01/25 15:53 02/01/25 15:45 02/01/25 15:30 02/01/25 15:15 02/01/25 15:12 02/01/25 15:12 02/01/25 15:00 02/01/25 15:00 02/01/25 14:53 02/01/25 14:45 02/01/25 14:30 02/01/25 14:15 02/01/25 14:00 02/01/25 14:00 02/01/25 13:45 02/01/25 13:30 02/01/25 13:25 Nasal Cannula 2 28 02/01/25 13:23 Room Air 02/01/25 13:23 Room Air 02/01/25 13:15 02/01/25 13:12 02/01/25 12:50 02/01/25 12:28 Room Air Procedures (ALL) - Central Line Placement PCM.CLCO: written consent Time out performed: Yes Patient placed pm monitor/pulse ox: Yes prep: mask, gown, gloves, other Centrial line prep: chlorhexidine scrub Local anesthsia used: lidocane 1% Ultrasound used for placement: Yes (right cephalic attempted x1, unable to advance wire. left brachial x1 ) Central line lumen ininserted: double (5.5fr arrowgard. trimmed to 47cm with 4cm exposed) Post procedure: good blood return, all ports aspirated, flushed,capped, sterile dressing applied Post procedure xray: tip oc catheter in good position (near cavo atrial junction per radiology) Patient tolerated procedure: Yes Complications: none
--- NOTE | 2025-02-04 10:58 | RAD ---
EXAM: CHEST, 1 VIEW HISTORY: Cough, SOB; COMPARISON: 02/01/2025 TECHNIQUE: AP r.[email or web address] SVC. 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 Stable cardiac silhouette. No focal consolidation, pleural effusion, or visible pneumothorax. IMPRESSION: No acute cardiopulmonary findings. THIS IS AN ELECTRONICALLY VERIFIED FINAL REPORT 02/04/2025 10:54 AM - Electronically signed by Pipe Greene MD
--- NOTE | 2025-02-04 11:54 | CT ---
EXAM: CT ABDOMEN AND PELVIS WITHOUT CONTRAST HISTORY: PT C/O RIGHT SIDED ABDOMINAL PAIN ; COMPARISON: None. TECHNIQUE: Axial CT images were obtained through the abdomen and pelvis without contrast. Coronal reformatted images were included. All CT scans at this facility use dose modulation, iterative reconstruction, and/or weight based dosing when appropriate to reduce radiation dose to as low as reasonably achievable. FINDINGS: Please note that without the use of intravenous contrast, evaluation of organ parenchyma is limited. LOWER THORAX: Hypoventilatory changes of the lung bases ABDOMEN: LIVER: Normal GALLBLADDER: Absent SPLEEN: Normal PANCREAS: Normal KIDNEYS: Mild distention of the right renal collecting system. No definite ureteral stones ADRENAL GLANDS: Normal GI TRACT: Moderate colonic stool LYMPH NODES: No enlarged nodes VESSELS: Moderate athero sclerotic disease PERITONEUM / RETROPERITONEUM: No free gas PELVIS: BLADDER: Normal GENITALS: Normal BONES: Normal IMPRESSION: Mild distention of the right renal collecting system and right ureter. No stones are seen. Recent passage of a stone is possible. THIS IS AN ELECTRONICALLY VERIFIED FINAL REPORT 02/04/2025 11:51 AM - Electronically signed by Pipe Uriostegui MD
[2025-02-04 12:18] VITALS: BP 127/63; PULSE 83; TEMP 98.6
[2025-02-04] MEDS: INVanz INJ 1 GRAM VIAL 1 G in NS 100 ML IV 100 ML IV ONE (15:30)
== END 2025-02-04 17:35 | disposition home health service (06) ==
LOC: ICU 12:19 → INTOOBSV 12:19 → MED/SURG 02-03 16:26
PROVIDERS: ADMIT Internal Medicine; ATTEND Internal Medicine
DX: E11.65 Type 2 diabetes mellitus with hyperglycemia; E83.42 Hypomagnesemia; D72.828 Other elevated white blood cell count; Z16.23 Resistance to quinolones and fluoroquinolones; I87.2 Venous insufficiency (chronic) (peripheral); Z79.4 Long term (current) use of insulin; D64.89 Other specified anemias; R06.02 Shortness of breath; R94.4 Abnormal results of kidney function studies; N39.0 Urinary tract infection, site not specified; I50.9 Heart failure, unspecified; K21.9 Gastro-esophageal reflux disease without esophagitis; I25.810 Atherosclerosis of coronary artery bypass graft(s) without angina pectoris; E86.0 Dehydration; I11.0 Hypertensive heart disease with heart failure; Z16.29 Resistance to other single specified antibiotic; B96.29 Other Escherichia coli [E. coli] as the cause of diseases classified elsewhere; Z16.12 Extended spectrum beta lactamase (ESBL) resistance; F32.89 Other specified depressive episodes; E78.5 Hyperlipidemia, unspecified; R79.89 Other specified abnormal findings of blood chemistry; R19.7 Diarrhea, unspecified; J44.9 Chronic obstructive pulmonary disease, unspecified; E03.8 Other specified hypothyroidism